=== PATIENT | female | born 1940 | race Caucasian/White ===

== ENCOUNTER → 2017-05-21 | Outpatient (CLI) | payer OTHER ==
--- NOTE | 2017-05-21 14:28 | MAMMOGRAPHY REPORT ---
BILATERAL DIGITAL SCREENING MAMMOGRAM WITH CAD: 05/21/2017 CLINICAL HISTORY: Routine screening. Patient has no complaints. TECHNIQUE: Current study was also evaluated with a Computer Aided Detection (CAD) system. Bilateral CC and MLO views were obtained. COMPARISON: Comparison is made to exams dated: 05/19/2016 mammogram, 05/15/2015 mammogram, 05/12/2014 mammogram, 05/11/2013 mammogram, 05/10/2012 mammogram, and 05/07/2011 mammogram - [facility]. BREAST COMPOSITION: The tissue of both breasts is heterogeneously dense, which may obscure small mas ses. FINDINGS: No suspicious masses, calcifications, or areas of architectural distortion are noted in ei ther breast. There has been no significant interval change compared to prior exams. Scattered bilater al benign-appearing calcifications are not significantly changed. Nodular asymmetry in the right lat eral breast on the cc view is stable dating back to at least the 2007 exam. IMPRESSION: ACR BI-RADS CATEGORY 2: BENIGN There is no mammographic evidence of malignancy. A 1 year screening mammogram is recommended. The pa tient will receive written notification of the results. Approximately 10% of breast cancers are not detected with mammography. A negative mammographic report should not delay biopsy if a clinically suggestive mass is present. Jaelyn Daugherty M.D. /:05/21/2017 12:07:39 Return Checker: Kaylene PUENTE(R)(M), [facility] letter sent: Normal 1/2 BI-RADS Code: ACR BI-RADS Category 2: Benign
== END | disposition home or self-care (01) ==
LOC: C.MAMM 10:39
PROVIDERS: ATTEND Family Medicine
DX: Z12.31 Encounter for screening mammogram for malignant neoplasm of breast (principal)

== ENCOUNTER 2024-10-19 09:50 | Inpatient (IN) ==
--- NOTE | 2024-10-19 12:04 | Pre Anesthesia Assessment ---
Date of Service October 19, 2024 Pre Sedation Assessment Vital Signs Pulse Resp BP Pulse Ox O2 Del Method 10/19/24 10:10 59 L 14 156/77 H 96 Room Air Cardiovascular RRR, no murmur, no edema + bradycardic Respiratory normal respiratory effort, lungs clear to auscultation Pre-Sedation Airway Assessment Smoking Status: Never smoker Hx Sleep Apnea: No Short, Thick Neck: No Thyromental Distance: > or= 3.5 Finger Breadths Oral Cavity: + WNL Mallampati Class: III ASA: ASA3 NPO Status Date of Last Intake of Fluids: 10/18/24 Time of Last Intake of Fluids: 20:00 Date of Last Intake of Solid Food: 10/18/24 Time of Last Intake of Solid Foods: 20:00 Procedure Planning Contraindications for Sedation: none Current Medications Reviewed: Yes Notes The planned sedation has been discussed with the patient. Informed Consent was obtained. I have identified the patient, determined the appropriateness of sedation and have assessed the patient immediately prior to the procedure. All medicine(s) and interventions are by my order.
--- NOTE | 2024-10-19 12:04 | History & Physical Bridge Note ---
Date of Service October 19, 2024 History & Physical Bridge Note I have examined the patient, reviewed the History & Physical and in the interval since the performance of the History & Physical I have noted the following changes of clinical significance: no changes noted
[2024-10-19] MEDS: ceFAZolin 330 MG/ML 1 GM VIAL ONE (13:26)
[2024-10-19] MEDS: WATER, STERILE FOR INJ 10 ML VIAL ONE (13:26)
[2024-10-19] MEDS: LIDOCAINE 1% LOCAL 20 ML VIAL ONE ×2 (13:26→21:08)
[2024-10-19] MEDS: BUPIVACAINE 0.25% PF 30 ML VIAL ONE (13:26)
[2024-10-19] MEDS: VANCOMYCIN HCL 1000MG/20ML VIAL ONE (13:26)
--- NOTE | 2024-10-19 14:09 | Post Anesthesia Assessment ---
Date of Service October 19, 2024 Post Sedation Assessment Vital Signs Pulse Resp BP Pulse Ox O2 Del Method 10/19/24 10:10 59 L 14 156/77 H 96 Room Air Recovery Score Activity: Moves 4 extremities Respiration: Deep Breath/Cough Circulation: +/-20% PreAnes Value Consciousness: Fully Awake Oxygen Saturation: > 92% On Room Air Discharge Sedation Level of Care: Fast Track Phase II Post Sedation Plan On clinical assessment, the patient appears to have tolerated the sedation without complications. Patient is recovering as anticipated. Patient will continue to be monitored by nursing and may be discharged when sedation discharge criteria are met per below protocol. Upon Completions of procedure up to 15 minutes continue every 5 minute vital signs and the P.A.R. score; then discharge to a Phase I or Fast Track to Phase II per the following guidelines: * Discharge Patient to appropriate Phase II area if PAR is 8 or greater or return to pre- procedure baseline. The post - procedure orders will be as directed. * If PAR score is less than 8 or not return to pre-procedure baseline then patient will follow Phase I monitoring till PAR is reached for Phase II. The Phase I may be done in procedure room or may call to secure a Phase I area. * If naloxone or flumazenil are used for reversal, hold in Phase I for continued monitoring from when last reversal dose was given for a minimum of 60 minutes or longer pending the nurse and/or physician discretion of patient condition before discharge to Phase II. Please call the Sedation Physician to re-evaluate and complete post-note for discharge to Phase II area. Do NOT discharge from procedure sedation or Phase 1 until post- sedation evaluation note is complete by procedure /sedation MD Sedation Discharge Instructions to be given to the patient at discharge to home.
--- NOTE | 2024-10-19 14:57 | Operative Report ---
Post Operative Report DATE OF PROCEDURE: 10/19/2024 PREOPERATIVE DIAGNOSES: NICM, LBBB, Chronic heart failure with preserved EF- NYHA Class II POSTOPERATIVE DIAGNOSIS: Same PROCEDURE: A BiV rate responsive implantable cardiac defibrillator along with a peripheral venogram under fluoroscopic guidance. SURGEON: Iveth Montejo DO ASSISTANTS: None. ANESTHESIA: Monitored conscious sedation administered under my supervision by Janel Tariq. Start time 12:47 end time 14:07, a total of 3 mg of Versed and 75 mcg of fentanyl. INTRAVENOUS FLUIDS: 50 mL. CONTRAST: 12 mL. ANTIBIOTICS: 1 grams of Ancef. ADDITIONAL MEDICATIONS: None BLOOD LOSS: 50 mL. URINE OUTPUT: Not applicable. SPECIMENS: None. FINDINGS: See below. DRAINS: None. COMPLICATIONS: None. CONDITION: Stable. INDICATIONS: This is a 84-year-old female who has a past medical history NICM EF 20-24% 07/2022, improved to 40-44% in 10/2022 and 07/2023 but then reduced again in 09/2024 to 20%, LBBB, Chronic heart failure with reduced EF-NYHA Class III, CAD non-obstructive cath 08/2022 (LAD mid 30%, LI CX and RCA), HTN, HLD statin intolerance, CKD stage III, DM, Depression, DDD. Due to her NICM, LBBB and CHF she was recommended a BiV ICD. A formal shared decision making process was performed with Lisa Gamez at the office visit utilizing the IDECIDE ICD evidence based tool from [employer] [place] [employer] Patient Centered Decisions. The discussion that followed was collaborative: detailing the information, risks, and benefits provided by the tool. We also discussed the values and preferences of Lisa Gamez to build a consensus regarding the preferred treatment plan. A decision was reached to proceed with BiV ICD. CONSENT: Consent was obtained prior to the patient going into the electrophysiology lab. The patient was informed of the risks, benefits, and alternatives to the procedure. Risks include, but not limited to, sudden cardiac , cardiac arrhythmias, cerebrovascular accident, myocardial infarction, injury to his blood vessels, chamber of the heart and lung, bleeding and infection. The patient understood these risks and agreed to the procedure as planned. Informed consent was obtained. DESCRIPTION OF PROCEDURE: The patient was brought into electrophysiology lab in a fasting state. She was connected to continuous cardiac monitoring. A timeout was performed to ensure the patient's identity and procedure correctly. She was prepped and draped in the left infraclavicular space in normal surgical standard fashion. Monitored conscious sedation was given throughout the procedure for the patient's comfort level. [place] precautions were maintained throughout the procedure. Prophylactic antibiotics were given prior to incision. A 20 mL of 1% lidocaine and bupivacaine mixture were given in the left deltopectoral groove. An incision was made in the left deltopectoral groove. Blunt dissection was performed down to the pectoralis muscle. Then, using blunt dissection over the pectoralis muscle within the pectoral fascia, a pacemaker pocket was created. Then, a peripheral venogram was performed to identify the axillary vein. Venous axillary access was obtained through a needlestick without any problems. A guidewire was inserted without any resistance. Then a second more medial venous axillary access was obtained without any problems and the guidewire was inserted without any resistance. A 6-Ecuadorean sheath was inserted over the more lateral guidewire without any resistance. Dilator was removed and a second guidewire was inserted through the sheath to allow for retained venous access. Then a 7 Ecuadorean sheath was advanced over one of the more lateral guidewires. The guidewire and dilator were removed. Then the defibrillator lead was advanced through the 7 Ecuadorean sheath into the RV and positioned into the RV apex under fluoroscopic guidance. The screw was extended. There was adequate pacing and sensing. There was no diaphragmatic stimulation with high out put pacing. The 7 Ecuadorean sheath was peeled away and the lead was fixated to the pectoralis muscle using 0 silk suture. Then a 9 Ecuadorean sheath was inserted over the more medial guidewire. The guidewire and dilator were removed. Then, the CPS French Teacher 3D medium curved sheath was inserted through the 9-Ecuadorean sheath over a Glidewire into the right ventricle. The Glidewire and dilator were removed. Then, the left bundle lead was advanced through the sheath and intracardiac electrogram His bundle recordings were estimated when the camera was in FLEMING 10. Once I had an idea where the His bundle was, I then moved the camera to FLEMING 30 and marked where the His bundle was on my fluoroscopy screen. I came down about 2 cm from this in a line that would extend out to the apex and then started coming on pacing. Once I found an area where I had a nice W formed pace complex in my lead V1, I then moved the camera to [place] 30. Then the helix was extended into the septum. Then the helix locking tool was placed. Then the lead was screwed further into the septum while pacing by giving slow clockwise turns. The paced complex changed to a nice R' in V1 and the pacing stim to peak QRS in V6 was good. I did use a stiffer stylet to advance the lead. I then gave contrast through the sheath to see how far the lead was into the septum and then I slit the CPS French Teacher 3D medium curved sheath under fluoroscopic guidance and left the 9-Ecuadorean sheath in while I positioned the right atrial lead. A 6-Ecuadorean sheath was inserted over the retained guidewire in the more lateral access, the guidewire and dilator removed. The right atrial lead was then advanced into right atrium and positioned into right atrial appendage under fluoroscopic guidance. There was adequate pacing and sensing thresholds and no diaphragmatic stimulation with high output pacing. The 6-Ecuadorean sheath was peeled away and the lead was fixated to the pectoralis muscle using 0 silk suture. The 9-Ecuadorean sheath around the left bundle lead was peeled away and the lead was fixated to pectoralis muscle using 0 silk suture. The pocket was flushed with copious amounts of vancomycin and saline wash and inspected for hemostasis. The leads were then attached to the pulse generator making sure the pins were in appropriate position, passed set screws, and set screws were all tightened. Pulse generator was then placed in the pocket, making sure the leads were lying flat beneath the device. The incision was closed in a 3-layer fashion using 2-0 Vicryl interrupted suture, followed by 3-0 Vicryl interrupted suture, followed by 4-0 Monocryl running stitch. Then a primaseal dressing was placed EQUIPMENT: 1. Pulse generator is a Vogel [place] HF SN: [id number] 2. Right atrial lead, Vogel UltiPace LPA 1231 SN: [id number] 3. Defibrillator Lead; Vogel SJM Durata 7122Q SN: [id number] 4. Left bundle lead, Vogel UltiPace LPA 1231 SN: [id number] INTRAPROCEDURAL FINDINGS: 1. Right atrial lead, P waves 2.2 millivolts, impedance 608 ohms, threshold 1.0 volts at 0.5 milliseconds. 2. Defibrillator Lead: R waves 12mV; impedance 500 ohms; threshold 0.5V @ 0.5ms 3. Left bundle lead, impedance 805 ohms, threshold 1.2 volts at 0.5 milliseconds. FINAL MEASUREMENTS THROUGH THE DEVICE: 1. Right atrial lead, P waves 1.8 millivolts, impedance 590 ohms, threshold 0.75 volt at 0.5 milliseconds. 2. Defibrillator Lead: R waves 12 mV; impedance 540 ohms; threshold 0.75V @ 0.5ms 2. Left bundle lead, impedance 780 ohms, threshold 0.75 volts at 0.5 milliseconds. FINAL PARAMETERS: DDD 60/120, right atrial and right ventricular (defibrillator lead) amplitude 3.5 volts, pulse width 0.5 milliseconds, sensitivity 0.3mV. Left bundle lead amplitude 3.5 volts, pulse width 0.5 milliseconds, IMPRESSION: Successful Bi Ventricular rate responsive implantable cardiac defibrillator under fluoroscopic guidance along with peripheral venogram all under fluoroscopic guidance secondary to NICM, LBBB, chronic heart failure with preserved EF, NYHA Class II PLAN: Monitor the patient post-procedure. A 12-lead ECG, chest x-ray. She is not to lift the left elbow or left shoulder for 1 month. She cannot lift more than 10 pounds with the left arm for 2 weeks. She is to keep the dressing on and dry until her wound check next week.
--- NOTE | 2024-10-19 17:00 | XRay Report ---
EXAM: XR chest 1V portable CLINICAL HISTORY: s/p BiV ICD ensure no PTX. TECHNIQUE: An X-ray image of the chest is obtained in AP projection. COMPARISON: No prior studies are available for comparison. FINDINGS: Pulmonary Parenchyma: Left-sided BiV ICD ( biventricular implantable cardioverter-defibrillator) is seen in situ. Increased lucency at left upper lung zone with absent lung markings and partial left lung collapse. Prominent hilar vascular shadows. i No evidence of consolidation, collapse, or focal opacities. No pulmonary nodules are identified. Obscured left costophrenic angle by minimal effusion / projectional. Heart and Mediastinum: No mediastinal widening or masses. No hilar or mediastinal lymphadenopathy. Bony Thorax: Bony thorax appears intact without fractures or deformities. Soft Tissues: Soft tissues overlying the chest wall are unremarkable. IMPRESSION: 1. Left-sided BiV ICD ( biventricular implantable cardioverter-defibrillator) is seen in situ. 2. Left-sided pneumothorax for follow-up and/or CT study. 3. Obscured left costophrenic angle by minimal effusion / projectional. Electronically signed by Dougie Carpenter 10-19-2024 5:00 PM
--- NOTE | 2024-10-19 17:13 | Critical Care Consultation ---
Date of Consultation October 19, 2024 Assessment & Plan (1) Iatrogenic pneumothorax: Tube thoracostomy placed, - 20 cm suction (2) Chronic HFrEF (heart failure with reduced ejection fraction): Asymptomatic at this time (3) LBBB (left bundle branch block): 100% pacemaker dependent at this time (4) HTN (hypertension): Continue home meds (5) CKD (chronic kidney disease) stage 3, GFR 30-59 ml/min: (6) DM type 2 (diabetes mellitus, type 2): Supervising Physician Co-Signing Physician Notes I have personally spent 35 minutes of critical care time in the direct management of this patient. This is a life/limb threatening event. This includes time spent evaluating patient, direct bedside care, chart review, placing orders, interpretation of diagnostic studies, discussion with consultants, patient, and/or family members regarding treatment decisions, as well as other required patient management activities. This time is exclusive of all separately billable procedures, and teaching time and separate from and in addition to any other critical care service time. History of Present Illness Reason for Consultation: Left-sided pneumothorax Attending Physician: Iveth Montejo, History of Present Illness Patient is an 84-year-old female who underwent a biventricular pacemaker placement for left bundle block whose course was complicated by pneumothorax. Patient was asymptomatic during my evaluation. Initial bedside ultrasound demonstrated an apical pneumothorax repeat chest x-ray demonstrated greater than 20% pneumo thorax risks and benefits were discussed with the patient and verbal consent was obtained. Allergies Allergy/AdvReac Type Severity Reaction Status Date / Time carbamazepine [From Tegretol] Allergy Itching Verified 10/19/24 10:56 diphenhydramine Allergy Rash Verified 10/19/24 10:53 [From Benadryl] nabumetone Allergy Rash Verified 10/19/24 10:54 salicylates Allergy Shakiness Verified 10/19/24 10:55 simvastatin Allergy Cramping Verified 10/19/24 10:55 of the Muscles Home Medications Medication Instructions Recorded Confirmed Type amlodipine 5 mg tablet 5 mg PO DAILY 08/19/22 10/19/24 History aspirin 81 mg tablet 81 mg PO DAILY 08/19/22 10/19/24 History carvedilol 6.25 mg tablet 6.25 mg PO BID 08/19/22 10/19/24 History escitalopram oxalate 5 mg tablet 5 mg PO DAILY 08/19/22 10/19/24 History ezetimibe 10 mg tablet 10 mg PO DAILY 08/19/22 10/19/24 History furosemide 20 mg tablet 20 mg PO DAILY 08/19/22 10/19/24 History losartan 100 mg tablet 100 mg PO DAILY 08/19/22 10/19/24 History Cyanacobalamin 10/19/24 History sacubitril 97 mg-valsartan 103 mg 1 tab PO BID 10/19/24 10/19/24 History tablet (Entresto) spironolactone 25 mg tablet 12.5 mg 10/19/24 History (Aldactone) valacyclovir 1 gram tablet 1,000 mg PO BID 10/19/24 10/19/24 History (Valtrex) Patient History Social History Smoking Status: Never smoker Do You Dip or Chew Tobacco: No; Hx Alcohol Use: No Hx Substance Use: No Preferred Language: Croatian Clinical Biochemical Geneticist Required: No Beliefs That Will Affect Care: None Current Living Situation: Spouse Feels Safe at Home: Yes Assistive Devices: None Physical Exam Physical Exam: General: Alert. nontoxic. Skin: Warm, dry, Head: Atraumatic Ears, nose, mouth and throat: airway patent Cardiovascular: Normal peripheral perfusion, paced rhythm Chest: Left pacemaker dressing in place small scant area of shadowing, no crepitus Respiratory: no respiratory distress Gastrointestinal: Non distended Musculoskeletal: No deformity Results & Data Results & Data Vital Signs (Past 12 Hours) Vital Signs Pulse Resp BP Pulse Ox O2 Del Method 10/19/24 16:45 60 14 110/61 95 Room Air 10/19/24 16:30 60 14 140/55 L 95 Room Air 10/19/24 16:15 60 14 140/55 L 95 Room Air 10/19/24 16:00 60 14 107/62 95 Room Air 10/19/24 15:45 60 14 140/68 95 Room Air 10/19/24 15:30 60 14 128/62 95 Room Air 10/19/24 15:14 60 14 126/80 95 Room Air 10/19/24 15:00 60 14 157/86 H 95 Room Air 10/19/24 14:45 63 14 138/89 95 Room Air 10/19/24 14:30 60 14 144/122 H 95 Room Air 10/19/24 14:15 60 14 161/71 H 95 Room Air 10/19/24 10:10 59 L 14 156/77 H 96 Room Air Critical Care Results & Data Vital Signs (Past 12 Hours) Vital Signs Pulse Resp BP Pulse Ox O2 Del Method O2 Flow Rate 10/19/24 19:00 72 14 145/68 H 95 Non-rebreather 11 10/19/24 18:45 68 14 147/71 H 95 Non-rebreather 11 10/19/24 18:30 72 14 150/66 H 95 Non-rebreather 11 10/19/24 18:15 62 14 155/71 H 95 Non-rebreather 11 10/19/24 17:45 60 14 156/77 H 95 Non-rebreather 11 10/19/24 17:30 60 14 159/71 H 95 Non-rebreather 11 10/19/24 17:15 60 14 155/71 H 95 Non-rebreather 11 10/19/24 17:00 60 14 150/83 H 95 Non-rebreather 11 10/19/24 16:45 60 14 110/61 95 Room Air 10/19/24 16:30 60 14 140/55 L 95 Room Air 10/19/24 16:15 60 14 140/55 L 95 Room Air 10/19/24 16:00 60 14 107/62 95 Room Air 10/19/24 15:45 60 14 140/68 95 Room Air 10/19/24 15:30 60 14 128/62 95 Room Air 10/19/24 15:14 60 14 126/80 95 Room Air 10/19/24 15:00 60 14 157/86 H 95 Room Air 10/19/24 14:45 63 14 138/89 95 Room Air 10/19/24 14:30 60 14 144/122 H 95 Room Air 10/19/24 14:15 60 14 161/71 H 95 Room Air 10/19/24 10:10 59 L 14 156/77 H 96 Room Air Lab & Micro Results (Past 24 Hours) No Data to Display No Data to Display No Data to Display Diagnostic Findings (Past 24 Hours) Chest X-Ray 10/19/24 16:00 EXAM: XR chest 1V portable CLINICAL HISTORY: s/p BiV ICD ensure no PTX. TECHNIQUE: An X-ray image of the chest is obtained in AP projection. COMPARISON: No prior studies are available for comparison. FINDINGS: Pulmonary Parenchyma: Left-sided BiV ICD ( biventricular implantable cardioverter-defibrillator) is seen in situ. Increased lucency at left upper lung zone with absent lung markings and partial left lung collapse. Prominent hilar vascular shadows. i No evidence of consolidation, collapse, or focal opacities. No pulmonary nodules are identified. Obscured left costophrenic angle by minimal effusion / projectional. Heart and Mediastinum: No mediastinal widening or masses. No hilar or mediastinal lymphadenopathy. Bony Thorax: Bony thorax appears intact without fractures or deformities. Soft Tissues: Soft tissues overlying the chest wall are unremarkable. IMPRESSION: 1. Left-sided BiV ICD ( biventricular implantable cardioverter-defibrillator) is seen in situ. 2. Left-sided pneumothorax for follow-up and/or CT study. 3. Obscured left costophrenic angle by minimal effusion / projectional. Electronically signed by Dougie Carpenter 10-19-2024 5:00 PM RT Ventilator Mngmt (Last Documented) Ventilator Ordered Settings Respiratory Rate 14 10/19/24 19:00 Ventilator - PT Measurements Respiratory Rate 14 Coding Level of Care Code 30151 CRITICAL CARE 1ST 30-74M Diagnoses Iatrogenic pneumothorax J95.811 Chronic HFrEF (heart failure with reduced ejection fraction) I50.22 LBBB (left bundle branch block) I44.7 HTN (hypertension) I10 CKD (chronic kidney disease) stage 3, GFR 30-59 ml/min N18.30 DM type 2 (diabetes mellitus, type 2) E11.9
--- NOTE | 2024-10-19 18:06 | History & Physical Report ---
Date of Service October 19, 2024 Assessment & Plan (1) LBBB (left bundle branch block): Plan: -now s/p pacemaker placement -course complicated by iatrogenic pneumothorax -procedure performed due to drop in EF in setting of LBBB Plan: -post op recs per EP/cardiology, appreciate recs -continuous telemetry -monitor site for infection, bleeding -chest xray in AM -hold aspirin tonight (2) Iatrogenic pneumothorax: Plan: -biventricular pacemaker placement complicated by pneumothorax Plan: -appreciate critical care assistance -likely chest tube placement -start incentive spirometry (3) Chronic HFrEF (heart failure with reduced ejection fraction): Plan: -EF of 20% in 2024 -hope is that treating LBBB with biventricular pacing will improve EF Plan: -continue home coreg, entresto -would benefit from SGLT2, start before discharge -hold aldactone for now -continue zetia, hold aspirin for now given post op setting (4) DM type 2 (diabetes mellitus, type 2): Plan: -monitor without insulin at this time given not on insulin at home (5) CKD (chronic kidney disease) stage 3, GFR 30-59 ml/min: Plan: -trend creatinine daily (6) HTN (hypertension): Plan: -see above Plan I spent a total of 80 minutes in direct patient care, including [id number] time with the patient and/or family, reviewing medical records, ordering and reviewing diagnostic tests, and coordinating care with other healthcare providers. This time includes: history taking, physical examination, medical decision making, counseling, ECG interpretation, imaging interpretation, lab interpretation, orders, and education, excluding time spent in the performance of separately billed services. History of Present Illness Chief Complaint: -post pacemaker Primary Care Provider: Alicia Abraham MD 84 yo female with pmhx of HFrEF (EF20% 2022--->40% 2023--->20% 2024) c/b LBBB, CAD (nonobstructive, LAD 30%, 2022), HTn, HLD, CKD Stage III, DM Type 2, and depression who presented for biventricular pacemaker placement for LBBB, course complicated by pneumothorax during course of placement. Discussed case with Dr. Montejo, patient will be admitted to ICU for monitoring and potential chest tube placement for pneumothorax. Patient seen and examined at bedside. Daughter present as well. Patient feeling well today post chest tube placement on left side. States she is not having any pain and generally feels she is improving. Denies any chest pain, bleeding, nausea or vomiting at this time. Full code at this time. Allergies Allergy/AdvReac Type Severity Reaction Status Date / Time carbamazepine [From Tegretol] Allergy Itching Verified 10/19/24 10:56 diphenhydramine Allergy Rash Verified 10/19/24 10:53 [From Benadryl] nabumetone Allergy Rash Verified 10/19/24 10:54 salicylates Allergy Shakiness Verified 10/19/24 10:55 simvastatin Allergy Cramping Verified 10/19/24 10:55 of the Muscles Home Medications Medication Instructions Recorded Confirmed Type amlodipine 5 mg tablet 5 mg PO DAILY 08/19/22 10/19/24 History aspirin 81 mg tablet 81 mg PO DAILY 08/19/22 10/19/24 History carvedilol 6.25 mg tablet 6.25 mg PO BID 08/19/22 10/19/24 History escitalopram oxalate 5 mg tablet 5 mg PO DAILY 08/19/22 10/19/24 History ezetimibe 10 mg tablet 10 mg PO DAILY 08/19/22 10/19/24 History furosemide 20 mg tablet 20 mg PO DAILY 08/19/22 10/19/24 History losartan 100 mg tablet 100 mg PO DAILY 08/19/22 10/19/24 History Cyanacobalamin 10/19/24 History sacubitril 97 mg-valsartan 103 mg 1 tab PO BID 10/19/24 10/19/24 History tablet (Entresto) spironolactone 25 mg tablet 12.5 mg 10/19/24 History (Aldactone) valacyclovir 1 gram tablet 1,000 mg PO BID 10/19/24 10/19/24 History (Valtrex) Past Med/Surg History Problem List DM type 2 (diabetes mellitus, type 2) CKD (chronic kidney disease) stage 3, GFR 30-59 ml/min HTN (hypertension) LBBB (left bundle branch block) Chronic HFrEF (heart failure with reduced ejection fraction) Iatrogenic pneumothorax Social History Smoking Status: Never smoker Do You Dip or Chew Tobacco: No; Hx Alcohol Use: Yes Alcohol type: wine Hx Substance Use: No Preferred Language: Hebrew Communication Ability: Effective [employer] P[employer] Required: No Beliefs That Will Affect Care: None Current Living Situation: Spouse Other Information That Helps Us Care for You: No Feels Safe at Home: Yes Safety Concerns: Feels Safe At This Time Assistive Devices: None Review of Systems Review of Systems: CONSTITUTIONAL: Patient denies fevers, chills, sweats and weight changes. EYES: Patient denies any visual symptoms. EARS, NOSE, AND THROAT: No difficulties with hearing. No symptoms of rhinitis or sore throat. CARDIOVASCULAR: Patient denies chest pains, palpitations, orthopnea and paroxysmal nocturnal dyspnea. RESPIRATORY: SOB GI: No nausea, vomiting, diarrhea, constipation, abdominal pain, hematochezia or melena. : No urinary hesitancy or dribbling. No nocturia or urinary frequency. No abnormal urethral discharge. MUSCULOSKELETAL: No myalgias or arthralgias. NEUROLOGIC: No chronic headaches, no seizures. Patient denies numbness, tingling or weakness. PSYCHIATRIC: Patient denies problems with mood disturbance. No problems with anxiety. ENDOCRINE: No excessive urination or excessive thirst. DERMATOLOGIC: Patient denies any rashes or skin changes. Physical Exam Physical Exam: Gen: A&O 3 NAD HEENT: NCAT, EOMI, not icteric. External ears normal. No rhinorrhea. Moist mucous membranes. Neck: Supple, full range of motion, no observable masses, No meningeal sign. Lungs: No Respiratory distress. CV: RRR, no edema. Abdomen: Soft, nondistended, No rebound tenderness. MSK: No joint swelling, no redness, trace nonpitting edema in legs bilaterally Skin: No rashes, petechiae, lesions. Normal color per patient. Neuro: Normal Gait, Grossly intact. Psych: Appropriate for situation. Results & Data Results & Data Vital Signs (Past 12 Hours) Vital Signs Pulse Resp BP Pulse Ox O2 Del Method 10/19/24 16:45 60 14 110/61 95 Room Air 10/19/24 16:30 60 14 140/55 L 95 Room Air 10/19/24 16:15 60 14 140/55 L 95 Room Air 10/19/24 16:00 60 14 107/62 95 Room Air 10/19/24 15:45 60 14 140/68 95 Room Air 10/19/24 15:30 60 14 128/62 95 Room Air 10/19/24 15:14 60 14 126/80 95 Room Air 10/19/24 15:00 60 14 157/86 H 95 Room Air 10/19/24 14:45 63 14 138/89 95 Room Air 10/19/24 14:30 60 14 144/122 H 95 Room Air 10/19/24 14:15 60 14 161/71 H 95 Room Air 10/19/24 10:10 59 L 14 156/77 H 96 Room Air Laboratory Results -personally reviewed, Hgb and WBC unremarkable Diagnostic Findings Chest X-Ray 10/19/24 16:00 EXAM: XR chest 1V portable CLINICAL HISTORY: s/p BiV ICD ensure no PTX. TECHNIQUE: An X-ray image of the chest is obtained in AP projection. COMPARISON: No prior studies are available for comparison. FINDINGS: Pulmonary Parenchyma: Left-sided BiV ICD ( biventricular implantable cardioverter-defibrillator) is seen in situ. Increased lucency at left upper lung zone with absent lung markings and partial left lung collapse. Prominent hilar vascular shadows. i No evidence of consolidation, collapse, or focal opacities. No pulmonary nodules are identified. Obscured left costophrenic angle by minimal effusion / projectional. Heart and Mediastinum: No mediastinal widening or masses. No hilar or mediastinal lymphadenopathy. Bony Thorax: Bony thorax appears intact without fractures or deformities. Soft Tissues: Soft tissues overlying the chest wall are unremarkable. IMPRESSION: 1. Left-sided BiV ICD ( biventricular implantable cardioverter-defibrillator) is seen in situ. 2. Left-sided pneumothorax for follow-up and/or CT study. 3. Obscured left costophrenic angle by minimal effusion / projectional. Electronically signed by Dougie Carpenter 10-19-2024 5:00 PM Chest X-Ray 10/19/24 19:25 EXAM: Portable AP chest radiograph TECHNIQUE: AP portable radiograph of the chest was obtained. INDICATION: Pneumothorax follow-up. Comparison: Chest radiograph from earlier the same day at 15:59. FINDINGS: LINES and TUBES: Redemonstrate left-sided cardiac ICD with leads projecting over the right atrium, the right ventricle and the coronary sinus of the heart. CARDIOVASCULAR: Cardiac silhouette is stably and mildly enlarged in size. Atherosclerosis of the thoracic aorta. LUNGS/PLEURA: No focal consolidation identified. No significant pleural fluid. No significant change in the appearance of the moderate-sized left pneumothorax. IMPRESSION: No significant change and no significant interval change in the appearance of the moderate-sized left pneumothorax. Electronically signed by Romaine Augustine 10-19-2024 8:30 PM -personally reviewed, left sided pneumothorax noted
[2024-10-19] MEDS ORDERED: POLYETHYLENE (MIRALAX) 17 GM PACK PO PRN (19:38)
[2024-10-19] MEDS ORDERED: ACETAMINOPHEN 325 MG TAB PO PRN (19:38)
[2024-10-19] MEDS: HYDROmorphone INJ 0.5 MG/0.5 ML SYR IV STA (19:45)
[2024-10-19] MEDS: LIDOCAINE 2% LOCAL 50 ML VIAL ONE (19:50)
--- NOTE | 2024-10-19 20:11 | Procedure Note ---
Procedure Note Date of Service October 19, 2024 Procedure Date: noted above Procedure: Tube thoracostomy Pre-procedure Diagnosis: Left pneumothorax Post-procedure Diagnosis: same as above: Empyema Prior to Procedure: Informed Consent: The risks, benefits, indications, potential complications, and alternatives were explained to the patient and verbal informed consent obtained. Attending Staff: Tae Beal DO Resident/Physician Turnstile Collector: Дмитрий Indications: Patient is an 84-year-old female postop day 0 from a pacemaker placement who was found to have a greater than 30% pneumothorax The identity of the patient was confirmed and a bedside time out was performed. Description of Procedure: Patient positioned, the left mid axillary line was prepped with chlorhexidine and draped in usual sterile fashion. 5 mL of 1% Lidocaine without epinephrine was used to anesthetize the area. With care to enter superior to the rib margin an 18-gauge needle was entered into the pleural space and air return was noted. A guidewire was inserted, and the needle removed. A stab incision was made, al dilator was used to enlarge the tract via Seldinger technique. A 20 Uzbek chest tube was inserted transversely into the chest at approximately 15 cm to the chest wall and secured with 3-0 silk suture. This was connected to a Pleur- evac, bubbling was noted in the chamber and eventually stopped and then with patient coughing there was still additional bubbling. Complications: None Estimated blood loss: Trace Post procedure chest x-ray has been ordered and has been reviewed. Improvement in the pneumothorax. [facility] Procedure Codes (Charges) Pulmonary/Thoracic Procedure 1: Pulmonary and Thoracic: 30587 Tube thoracostomy (left sided procedure) Coding CPT Codes Pulmonary/Thoracic - Pulmonary and Thoracic: 74999 Tube thoracostomy ([id number]) Additional Codes Date of Service (PG.SURGERY)
--- NOTE | 2024-10-19 20:30 | XRay Report ---
EXAM: Portable AP chest radiograph TECHNIQUE: AP portable radiograph of the chest was obtained. INDICATION: Pneumothorax follow-up. Comparison: Chest radiograph from earlier the same day at 15:59. FINDINGS: LINES and TUBES: Redemonstrate left-sided cardiac ICD with leads projecting over the right atrium, the right ventricle and the coronary sinus of the heart. CARDIOVASCULAR: Cardiac silhouette is stably and mildly enlarged in size. Atherosclerosis of the thoracic aorta. LUNGS/PLEURA: No focal consolidation identified. No significant pleural fluid. No significant change in the appearance of the moderate-sized left pneumothorax. IMPRESSION: No significant change and no significant interval change in the appearance of the moderate-sized left pneumothorax. Electronically signed by Romaine Augustine 10-19-2024 8:30 PM
[2024-10-19 20:41] LABS: Basophils # (auto) 0.05 K/uL (0.00-0.20); Basophils % (auto) 0.5 %; Eosinophils # (auto) 0.07 K/uL (0.00-0.50); Eosinophils % (auto) 0.7 %; Hematocrit (blood only) 43.5 % (37.0-47.0); Hemoglobin 13.9 g/dl (12.0-16.0); Immature Granulocytes # (auto) 0.04 K/uL (0.01-0.20); Immature Granulocytes % (auto) 0.4 %; Lymphocytes % (auto) 10.6 %; Mean Corpuscular Hemoglobin 29.6 pg (25.0-34.0); Mean Corpuscular Volume 92.6 fL (80.0-100.0); Mean Platelet Volume 10.2 fL (9.4-12.4); Monocytes # (auto) 0.59 K/uL (0.11-0.59); Monocytes % (auto) 6.3 %; Neutrophils # (auto) 7.68 K/uL (1.40-6.50); Neutrophils % (auto) 81.5 %; Platelet Count 177 K/uL (130-400); RDW Coefficient of Variation 13.2 % (11.5-14.5); RDW Standard Deviation 45.2 fL (36.4-46.3); White Blood Count 9.43 K/ul (4.8-10.8)
[2024-10-19 20:57] LABS: Albumin Globulin Ratio 1.4 (0.9-2); BUN Creatinine Ratio 21.3 (10-20); Bilirubin,Total 0.7 mg/dl (0.2-1.0); Calcium 9.2 mg/dl (8.6-10.3); Creatinine Clr Calc Pharmacy 37.3 ml/min; Globulin 2.9 gm/dl (2.5-4.0); Magnesium 1.6 mg/dl (1.7-2.4); Phosphorus 3.5 mg/dl (2.5-4.9); Potassium 4.6 mmol/L (3.5-5.1); Total Protein 6.9 gm/dl (6.0-8.3)
[2024-10-19] MEDS: fentaNYL citrate PF 100 MCG/2 ML VIAL ONE (21:03)
[2024-10-19] MEDS: HYDROmorphone INJ 0.5 MG/0.5 ML SYR ONE (21:04)
[2024-10-19] MEDS: MIDAZOLAM HCL 5 MG/ML 1 ML VIAL ONE (21:04)
[2024-10-19 21:07] LABS: Prothrombin Time 11.1 Seconds (9.0-12.0)
[2024-10-19] MEDS: ICU Protocol for HYPERglycemia SCH (21:36)
[2024-10-19] MEDS: carvediloL 6.25 MG TAB PO SCH (21:36)
[2024-10-19] MEDS: MAGNESIUM SULFATE / D5W 1 GM/100 ML BAG IV SCH (21:36)
--- NOTE | 2024-10-20 00:18 | XRay Report ---
Exam(s): XR CXR 1 VIEW EXAM: XR Chest, 1 View CLINICAL HISTORY: Reason for exam: s/p pigtalil placement on left side. TECHNIQUE: Frontal view of the chest. COMPARISON: Prior chest x-ray from October 19, 2024 at 7:22 PM. FINDINGS: There is an AICD in the left chest wall with distal leads in the right atrium and right ventricle. There is a pigtail catheter in the left chest wall that the distal tip obscured by the AICD. Lungs: Unremarkable. No consolidation. Pleural space: There is blunting of the left costophrenic angle concerning for a tiny pleural effusion. No pneumothorax. Heart: Unremarkable. No cardiomegaly. Mediastinum: Unremarkable. Normal mediastinal contour. Bones/joints: Unremarkable. No acute fracture. IMPRESSION: There is a left pigtail chest tube with the distal tip obscured by the AICD. No definite evidence of residual pneumothorax. Electronically signed by: Lali Lamb MD 10/20/24 00:16 AM
[2024-10-20 04:49] LABS: Hematocrit (blood only) 41.3 % (37.0-47.0); Hemoglobin 13.5 g/dl (12.0-16.0); Mean Corpuscular Hemoglobin 30.1 pg (25.0-34.0); Mean Corpuscular Hgb Conc 32.7 g/dL (32.0-36.0); Mean Corpuscular Volume 92.2 fL (80.0-100.0); Platelet Count 143 K/uL (130-400); RDW Coefficient of Variation 13.2 % (11.5-14.5); Red Blood Count 4.48 M/uL (4.20-5.40); White Blood Count 7.84 K/ul (4.8-10.8)
[2024-10-20 05:04] LABS: BUN Creatinine Ratio 23.7 (10-20); Creatinine Clr Calc Pharmacy 35.4 ml/min; Magnesium 2.3 mg/dl (1.7-2.4); Potassium 4.8 mmol/L (3.5-5.1)
--- NOTE | 2024-10-20 08:18 | XRay Report ---
EXAM: XR chest 1V portable CLINICAL HISTORY: CT placed to water seal at 0400- evaluate pneumothorax. TECHNIQUE: An X-ray image of the chest is obtained in AP portable projection. COMPARISON: 10/19/2024 18:37:00 DEBEAKER. FINDINGS: Pulmonary Parenchyma: Left-sided chest tube with tip seen peripherally at mid lung zone (Partially obscured by ICD device) (new finding). Interval improvement of left-sided pneumothorax, still seen apical pneumothorax, and lung re-expansion. Prominent hilar vascular shadows. No evidence of consolidation, collapse, or focal opacities. No pulmonary nodules are identified. Obscured left costophrenic angle by minimal effusion / projectional. Heart and Mediastinum: Heart size and shape are normal. No mediastinal widening or masses. No hilar or mediastinal lymphadenopathy. A left-sided cardiac pacemaker is seen in situ. Bony Thorax: Bony thorax appears intact without fractures or deformities. Soft Tissues: Soft tissues overlying the chest wall are unremarkable. IMPRESSION: 1. Interval improvement of left-sided pneumothorax, still seen mild apical pneumothorax, and lung re-expansion. 2. Left-sided chest tube with tip seen peripherally at mid lung zone (Partially obscured by ICD device) (new finding). 3. Unchanged obscured left costophrenic angle possibly by minimal effusion / projectional. 4. No new consolidated or collapsed patches. Electronically signed by Dougie Carpenter 10-20-2024 08:17 AM
[2024-10-20] MEDS: ESCITALOPRAM OXALATE 10 MG TAB PO SCH (08:36)
[2024-10-20] MEDS: EZETIMIBE 10 MG TAB PO SCH (08:37)
[2024-10-20] MEDS: VALSARTAN/SACUBITRIL 103/97MG TAB PO SCH (08:37)
--- NOTE | 2024-10-20 11:39 | Hospitalist Progress Note ---
Date of Service October 20, 2024 Assessment & Plan (1) Iatrogenic pneumothorax: (2) Chronic HFrEF (heart failure with reduced ejection fraction): (3) LBBB (left bundle branch block): (4) Status post implantation of automatic cardioverter/defibrillator (AICD): (5) CKD (chronic kidney disease) stage 3, GFR 30-59 ml/min: (6) DM type 2 (diabetes mellitus, type 2): (7) HTN (hypertension): Plan Patient 84-year-old female admitted with pneumothorax status post AICD placement yesterday. Chest tube in place, small residual pneumothorax on this morning's chest x-ray, chest tube placed back to suction Continue to monitor checks x-ray, chest tube management per pulmonary Pacemaker site looks clean, continue with usual post pacemaker care Continue to monitor glucose And managed with, diet controlled Continue other goal-directed medications for her reduced ejection fraction Admission and Anticipated Discharge Date Admission Date: October 19, 2024 Subjective Patient states that she was able to get some rest. No real significant chest pain. No shortness of breath. Physical Exam Physical Exam: Constitutional: Alert, no acute distress HEENT: Mucous membranes moist. Lungs: Decreased breath sounds, no wheezes CV: S1-S2, regular, systolic murmur Abdomen: Soft, nontender, nondistended Extremities: No significant edema Neuro: No focal deficits Psych: Cooperative, normal mood Results & Data Results & Data Vital Signs (Past 12 Hours) Vital Signs Temp Pulse Pulse Resp BP BP Pulse Ox 10/20/24 08:09 72 21 100 10/20/24 08:06 148/80 H 10/20/24 08:06 148/80 H 10/20/24 08:06 148/80 H 10/20/24 08:06 148/80 H 10/20/24 08:00 10/20/24 08:00 36.9 C 10/20/24 07:45 72 20 97 10/20/24 07:33 77 22 98 10/20/24 07:09 65 18 100 10/20/24 07:01 113/82 10/20/24 07:01 11310/20/24 07:01 10/20/24 06:00 67 20 129/69 100 10/20/24 05:00 62 15 137/57 L 100 10/20/24 04:00 36.4 C L 62 15 116/59 L 100 10/20/24 03:33 60 14 100 10/20/24 03:00 61 16 121/52 L 100 10/20/24 02:00 60 19 129/55 L 100 10/20/24 01:00 60 15 98/77 L 100 10/20/24 00:30 60 15 100 10/20/24 00:11 10/20/24 00:00 36.5 C 60 16 112/56 L 100 10/19/24 23:39 72 19 100 O2 Del Method O2 Flow Rate FiO2 10/20/24 08:09 10/20/24 08:06 10/20/24 08:06 10/20/24 08:06 10/20/24 08:06 10/20/24 08:00 Non-rebreather 15 10/20/24 08:00 10/20/24 07:45 10/20/24 07:33 10/20/24 07:09 10/20/24 07:01 10/20/24 07:01 10/20/24 07:01 10/20/24 06:00 Non-rebreather 15 10/20/24 05:00 Non-rebreather 15 10/20/24 04:00 Non-rebreather 15 10/20/24 03:33 Non-rebreather 15 10/20/24 03:00 Non-rebreather 15 10/20/24 02:00 Non-rebreather 15 100 10/20/24 01:00 Non-rebreather 15 10/20/24 00:30 Non-rebreather 15 10/20/24 00:11 Non-rebreather 15 10/20/24 00:00 Non-rebreather 15 10/19/24 23:39 Non-rebreather 15 100 Diagnostic Findings Reviewed imaging, laboratory and diagnostic studies. Pertinent findings as below. Personally reviewed chest x-ray from this morning, small residual pneumothorax at the apex on the left. Laboratory studies stable
--- NOTE | 2024-10-20 12:08 | Critical Care Progress Note ---
Date of Service October 20, 2024 Assessment & Plan (1) Iatrogenic pneumothorax: Plan: After placement on waterseal interval increase in apical pneumothorax - Continue -20 cmH2O suction - Will reimage at 6 PM and if negative placed back on bowen eal with anticipating reimaging 1 hour later Patient stable for downgrade out of ICU and critical care will continue to follow chest tube Admission and Anticipated Discharge Date Admission Date: October 19, 2024 Subjective No overnight events. Was placed on waterseal approximately 4 5 this morning, repeat chest x-ray demonstrates interval worsening of apical pneumothorax and was subsequently placed back on suction. Patient is asymptomatic otherwise Physical Exam Physical Exam: General: Alert. nontoxic. Skin: Warm, dry, Head: Atraumatic Ears, nose, mouth and throat: airway patent Cardiovascular: Normal peripheral perfusion Respiratory: no respiratory distress Gastrointestinal: Non distended Musculoskeletal: No deformity Results & Data Results & Data Vital Signs (Past 12 Hours) Vital Signs Temp Pulse Pulse Resp BP BP Pulse Ox 10/20/24 08:09 72 21 100 10/20/24 08:06 148/80 H 10/20/24 08:06 148/80 H 10/20/24 08:06 148/80 H 10/20/24 08:06 148/80 H 10/20/24 08:00 10/20/24 08:00 36.9 C 10/20/24 07:45 72 20 97 10/20/24 07:33 77 22 98 10/20/24 07:09 65 18 100 10/20/24 07:01 113/82 10/20/24 07:01 113/82 10/20/24 07:01 113/82 10/20/24 06:00 67 20 129/69 100 10/20/24 05:00 62 15 137/57 L 100 10/20/24 04:00 36.4 C L 62 15 116/59 L 100 10/20/24 03:33 60 14 100 10/20/24 03:00 61 16 121/52 L 100 10/20/24 02:00 60 19 129/55 L 100 10/20/24 01:00 60 15 98/77 L 100 10/20/24 00:30 60 15 100 10/20/24 00:11 O2 Del Method O2 Flow Rate FiO2 10/20/24 08:09 10/20/24 08:06 10/20/24 08:06 10/20/24 08:06 10/20/24 08:06 10/20/24 08:00 Non-rebreather 15 10/20/24 08:00 10/20/24 07:45 10/20/24 07:33 10/20/24 07:09 10/20/24 07:01 10/20/24 07:01 10/20/24 07:01 10/20/24 06:00 Non-rebreather 15 100 10/20/24 05:00 Non-rebreather 15 100 10/20/24 04:00 Non-rebreather 15 100 10/20/24 03:33 Non-rebreather 15 100 10/20/24 03:00 Non-rebreather 15 100 10/20/24 02:00 Non-rebreather 15 100 10/20/24 01:00 Non-rebreather 15 100 10/20/24 00:30 Non-rebreather 15 100 10/20/24 00:11 Non-rebreather 15 100 Critical Care Results & Data Vital Signs (Past 12 Hours) Vital Signs Temp Pulse Pulse Resp BP BP Pulse Ox 10/20/24 08:09 72 21 100 10/20/24 08:06 148/80 H 10/20/24 08:06 148/80 H 10/20/24 08:06 148/80 H 10/20/24 08:06 148/80 H 10/20/24 08:00 10/20/24 08:00 36.9 C 10/20/24 07:45 72 20 97 10/20/24 07:33 77 22 98 10/20/24 07:09 65 18 100 10/20/24 07:01 113/82 10/20/24 07:01 113/82 10/20/24 07:01 113/82 10/20/24 06:00 67 20 129/69 100 10/20/24 05:00 62 15 137/57 L 100 10/20/24 04:00 36.4 C L 62 15 116/59 L 100 10/20/24 03:33 60 14 100 10/20/24 03:00 61 16 121/52 L 100 10/20/24 02:00 60 19 129/55 L 100 10/20/24 01:00 60 15 98/77 L 100 10/20/24 00:30 60 15 100 10/20/24 00:11 O2 Del Method O2 Flow Rate FiO2 10/20/24 08:09 10/20/24 08:06 10/20/24 08:06 10/20/24 08:06 10/20/24 08:06 10/20/24 08:00 Non-rebreather 15 10/20/24 08:00 10/20/24 07:45 10/20/24 07:33 10/20/24 07:09 10/20/24 07:01 10/20/24 07:01 10/20/24 07:01 10/20/24 06:00 Non-rebreather 15 10/20/24 05:00 Non-rebreather 15 10/20/24 04:00 Non-rebreather 15 10/20/24 03:33 Non-rebreather 15 10/20/24 03:00 Non-rebreather 15 10/20/24 02:00 Non-rebreather 15 10/20/24 01:00 Non-rebreather 15 10/20/24 00:30 Non-rebreather 15 10/20/24 00:11 Non-rebreather 15 100 Lab & Micro Results (Past 24 Hours) RBC 4.48 M/uL (4.20-5.40) 10/20/24 WBC 7.84 K/ul (4.8-10.8) 10/20/24 Hgb 13.5 g/dl (12.0-16.0) 10/20/24 Hct 41.3 % (37.0-47.0) 10/20/24 MCV 92.2 fL (80.0-100.0) 10/20/24 MCH 30.1 pg (25.0-34.0) 10/20/24 MCHC 32.7 g/dL (32.0-36.0) 10/20/24 RDW Standard Deviation 45.0 fL (36.4-46.3) 10/20/24 RDW Coefficient of Variation 13.2 % (11.5-14.5) 10/20/24 Plt Count 143 K/uL (130-400) 10/20/24 MPV 10.0 fL (9.4-12.4) 10/20/24 Neutrophils (%) (Auto) 81.5 % 10/19/24 Lymphocytes (%) (Auto) 10.6 % 10/19/24 Monocytes # (Auto) 0.59 K/uL (0.11-0.59) 10/19/24 Eosinophils # (Auto) 0.07 K/uL (0.00-0.50) 10/19/24 Immature Granulocyte % (Auto) 0.4 % 10/19/24 Neutrophils # (Auto) 7.68 K/uL (1.40-6.50) H 10/19/24 Lymphocytes # (Auto) 1.00 K/uL (1.20-3.40) L 10/19/24 Monocytes # (Auto) 0.59 K/uL (0.11-0.59) 10/19/24 Eosinophils # (Auto) 0.07 K/uL (0.00-0.50) 10/19/24 Basophils # (Auto) 0.05 K/uL (0.00-0.20) 10/19/24 Immature Granulocyte # (Auto) 0.04 K/uL (0.01-0.20) 5 Na 134 mmol/L (136-145) L 10/20/24 K 4.8 mmol/L (3.5-5.1) 10/20/24 Cl 102 mmol/L (98-107) 10/20/24 CO2 26 mmol/L (21-32) 10/20/24 Anion Gap 6 (3-11) 10/20/24 BUN 27 mg/dl (6-23) H 10/20/24 Creatinine 1.14 mg/dl (0.6-1.2) 10/20/24 BUN/Creatinine Ratio 23.7 (10-20) H 10/20/24 Glu 108 mg/dl (70-99(Fasting)) H 10/20/24 Ca 9.0 mg/dl (8.6-10.3) 10/20/24 Phosphorus Level 3.5 mg/dl (2.5-4.9) 10/19/24 Total Bilirubin 0.7 mg/dl (0.2-1.0) 10/19/24 AST 23 U/L (13-39) 10/19/24 ALT 16 U/L (7-52) 10/19/24 Alkaline Phosphatase 67 U/L (34-104) 10/19/24 TP 6.9 gm/dl (6.0-8.3) 10/19/24 Albumin 4.0 gm/dl (3.4-5.0) 10/19/24 Globulin 2.9 gm/dl (2.5-4.0) 10/19/24 Albumin/Globulin Ratio 1.4 (0.9-2) 10/19/24 Mg 2.3 mg/dl (1.7-2.4) 10/20/24 04:37 Calcium Level 9.0 mg/dl (8.6-10.3) 10/20/24 04:37 Prothromb Time International Ratio 1.0 (0.9-1.1) 10/19/24 20:3 2 Diagnostic Findings (Past 24 Hours) Chest X-Ray 10/19/24 16:00 EXAM: XR chest 1V portable CLINICAL HISTORY: s/p BiV ICD ensure no PTX. TECHNIQUE: An X-ray image of the chest is obtained in AP projection. COMPARISON: No prior studies are available for comparison. FINDINGS: Pulmonary Parenchyma: Left-sided BiV ICD ( biventricular implantable cardioverter-defibrillator) is seen in situ. Increased lucency at left upper lung zone with absent lung markings and partial left lung collapse. Prominent hilar vascular shadows. i No evidence of consolidation, collapse, or focal opacities. No pulmonary nodules are identified. Obscured left costophrenic angle by minimal effusion / projectional. Heart and Mediastinum: No mediastinal widening or masses. No hilar or mediastinal lymphadenopathy. Bony Thorax: Bony thorax appears intact without fractures or deformities. Soft Tissues: Soft tissues overlying the chest wall are unremarkable. IMPRESSION: 1. Left-sided BiV ICD ( biventricular implantable cardioverter-defibrillator) is seen in situ. 2. Left-sided pneumothorax for follow-up and/or CT study. 3. Obscured left costophrenic angle by minimal effusion / projectional. Electronically signed by Dougie Carpenter 10-19-2024 5:00 PM Chest X-Ray 10/19/24 19:25 EXAM: Portable AP chest radiograph TECHNIQUE: AP portable radiograph of the chest was obtained. INDICATION: Pneumothorax follow-up. Comparison: Chest radiograph from earlier the same day at 15:59. FINDINGS: LINES and TUBES: Redemonstrate left-sided cardiac ICD with leads projecting over the right atrium, the right ventricle and the coronary sinus of the heart. CARDIOVASCULAR: Cardiac silhouette is stably and mildly enlarged in size. Atherosclerosis of the thoracic aorta. LUNGS/PLEURA: No focal consolidation identified. No significant pleural fluid. No significant change in the appearance of the moderate-sized left pneumothorax. IMPRESSION: No significant change and no significant interval change in the appearance of the moderate-sized left pneumothorax. Electronically signed by Romaine Augustine 10-19-2024 8:30 PM Chest X-Ray 10/19/24 20:05 Exam(s): XR CXR 1 VIEW EXAM: XR Chest, 1 View CLINICAL HISTORY: Reason for exam: s/p pigtalil placement on left side. TECHNIQUE: Frontal view of the chest. COMPARISON: Prior chest x-ray from October 19, 2024 at 7:22 PM. FINDINGS: There is an AICD in the left chest wall with distal leads in the right atrium and right ventricle. There is a pigtail catheter in the left chest wall that the distal tip obscured by the AICD. Lungs: Unremarkable. No consolidation. Pleural space: There is blunting of the left costophrenic angle concerning for a tiny pleural effusion. No pneumothorax. Heart: Unremarkable. No cardiomegaly. Mediastinum: Unremarkable. Normal mediastinal contour. Bones/joints: Unremarkable. No acute fracture. IMPRESSION: There is a left pigtail chest tube with the distal tip obscured by the AICD. No definite evidence of residual pneumothorax. Electronically signed by: Lali Lamb MD 10/20/24 00:16 AM Chest X-Ray 10/20/24 06:00 EXAM: XR chest 1V portable CLINICAL HISTORY: CT placed to water seal at 0400- evaluate pneumothorax. TECHNIQUE: An X-ray image of the chest is obtained in AP portable projection. 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 Interval improvement of left-sided pneumothorax, still seen apical pneumothorax, and lung re-expansion. Prominent hilar vascular shadows. No evidence of consolidation, collapse, or focal opacities. No pulmonary nodules are identified. Obscured left costophrenic angle by minimal effusion / projectional. Heart and Mediastinum: Heart size and shape are normal. No mediastinal widening or masses. No hilar or mediastinal lymphadenopathy. A left-sided cardiac pacemaker is seen in situ. Bony Thorax: Bony thorax appears intact without fractures or deformities. Soft Tissues: Soft tissues overlying the chest wall are unremarkable. IMPRESSION: 1. Interval improvement of left-sided pneumothorax, still seen mild apical pneumothorax, and lung re-expansion. 2. Left-sided chest tube with tip seen peripherally at mid lung zone (Partially obscured by ICD device) (new finding). 3. Unchanged obscured left costophrenic angle possibly by minimal effusion / projectional. 4. No new consolidated or collapsed patches. Electronically signed by Dougie Carpenter 10-20-2024 08:17 AM I & O Totals 24 Hours 10/19/24 10/20/24 10/21/24 06:59 06:59 06:59 Intake Total 242.5 / 242.5 200 / 200 Output Total 550 / 550 Balance -307.5 / -307.5 200 / 200 Cumulative 10/10/24 11:02 thru 10/20/24 08:00 Intake Total 442.5 Output Total 550 Balance -107.5 RT Ventilator Mngmt (Last Documented) Ventilator Ordered Settings Respiratory Rate 21 10/20/24 08:09 Fraction of Inspired Oxygen 100 10/20/24 06:00 Ventilator - PT Measurements Respiratory Rate 21 Coding Level of Care Code 13452 SUB INP/OBS CARE 2/35MIN Diagnoses Iatrogenic pneumothorax J95.811
--- NOTE | 2024-10-20 17:14 | Electrocardiogram Report ---
Test Reason : Blood Pressure : */* mmHG Vent. Rate : 60 BPM Atrial Rate : 60 BPM P-R Int : 176 ms QRS Dur : 132 ms QT Int : 482 ms P-R-T Axes : * 16 -78 degrees QTcB Int : 482 ms AV dual-paced rhythm Abnormal ECG No previous ECGs available Confirmed by Aravind Casey ([id number]) on 10/20/2024 5:14:05 PM Referred By: Jagdish Lieberman Confirmed By: Aravind Casey
--- NOTE | 2024-10-20 17:15 | Electrocardiogram Report ---
Test Reason : Blood Pressure : */* mmHG Vent. Rate : 70 BPM Atrial Rate : 70 BPM P-R Int : 178 ms QRS Dur : 138 ms QT Int : 450 ms P-R-T Axes : 10 -26 222 degrees QTcB Int : 486 ms Atrial-sensed ventricular-paced rhythm Abnormal ECG When compared with ECG of 19-Oct-2024 16:31, (unconfirmed) Vent. rate has increased by 10 bpm Confirmed by Aravind Casey ([id number]) on 10/20/2024 5:14:36 PM Referred By: Jagdish Lieberman Confirmed By: Aravind Casey
--- NOTE | 2024-10-20 19:45 | XRay Report ---
EXAM: XR chest 1V portable CLINICAL HISTORY: Pneumothorax. TECHNIQUE: An X-ray image of the chest is obtained in AP projection. 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 No evidence of consolidation, collapse, still noted the left-sided mild pleural effusion Heart and Mediastinum: Heart size and shape are normal. No mediastinal widening or masses. No hilar or mediastinal lymphadenopathy. A left-sided cardiac pacemaker is seen in situ. Bony Thorax: Bony thorax appears intact without fractures or deformities. Soft Tissues: Soft tissues overlying the chest wall are unremarkable. IMPRESSION: 1. Still noted Left-sided chest tube with tip seen peripherally at mid lung zone (Partially obscured by ICD device) 2. Still seen apical lucency suggestive of minimal residual pneumothorax. 3. Still noted the left-sided mild pleural effusion. 4. No new consolidated or collapsed patches. 5. Overall improvement of the previous findings. Correlate clinically. Electronically signed by Dougie Carpenter 10-20-2024 7:45 PM
--- NOTE | 2024-10-20 20:17 | Communication Note ---
Date of Service: October 20, 2024 Repeat CXR with minimal pneumothorax. Chest tube to water seal with repeat CXR at 0. RN notified. 2144: Repeat CXR shows stable pneumothorax. Will maintain on water seal with repeat CXR in AM, possible removal of chest tube. Coding Level of Care Code None
[2024-10-20 20:47] VITALS: TEMP 98.1
--- OUTSIDE RECORDS SUMMARY | 2024-10-20 20:55 | External Medical Summary ---
Author Name Unknown Address Unknown Organization [facility] [address] [place] [id number] Laboratory Report Ordering Provider Test Date Status JULISA LAWSON 09/08/2024 12:10:05 Final Observation Date Value Abnormality Reference (Units ) Status WBC, Total 09/08/2024 12:10:05 5.88 4.00-10.8 0 (K/uL) Final RBC 09/08/2024 12:10:05 4.78 3.85-5.15 (M/uL) Final Hemoglobin 09/08/2024 12:10:05 14.5 12.0-15.3 (g/dL) Final HCT 09/08/2024 12:10:05 44.2 36.0-45.2 (%) Final MCV 09/08/2024 12:10:05 92.5 81.5-97.5 (fL) Final MCH 09/08/2024 12:10:05 30.3 27.0-34.0 (pg) Final MCHC 09/08/2024 12:10:05 32.8 32.0-36.0 (g/dL) Final RDW 09/08/2024 12:10:05 13.3 11.5-15.5 (%) Final Platelets 09/08/2024 12:10:05 208 140-400 (K /uL) Final MPV 09/08/2024 12:10:05 10.7 6.6-11.1 ( fL) Final Performing Location [facility] [address] [place] [id number]
--- OUTSIDE RECORDS SUMMARY | 2024-10-20 20:55 | External Medical Summary ---
Author Name Unknown Address Unknown Organization [id number] [address] [place] [id number] Laboratory Report Ordering Provider Test Date Status CHARLETTE SMALL 10/07/2024 09:22:48 Final Observation Date Value Abnormality Reference (Units ) Status WBC, Total 10/07/2024 09:22:48 5.33 4.00-10.8 0 (K/uL) Final RBC 10/07/2024 09:22:48 4.69 3.85-5.15 (M/uL) Final Hemoglobin 10/07/2024 09:22:48 14.1 12.0-15.3 (g/dL) Final HCT 10/07/2024 09:22:48 43.9 36.0-45.2 (%) Final MCV 10/07/2024 09:22:48 93.6 81.5-97.5 (fL) Final MCH 10/07/2024 09:22:48 30.1 27.0-34.0 (pg) Final MCHC 10/07/2024 09:22:48 32.1 32.0-36.0 (g/dL) Final RDW 10/07/2024 09:22:48 13.6 11.5-15.5 (%) Final Platelets 10/07/2024 09:22:48 191 140-400 (K /uL) Final MPV 10/07/2024 09:22:48 10.3 6.6-11.1 ( fL) Final Performing Location [facility] [address] [place] [id number]
--- OUTSIDE RECORDS SUMMARY | 2024-10-20 20:55 | External Medical Summary | Summary of Care ---
Author Name Unknown Organization [facility] Address [address] [place] [address] Phone [phone] Care Team Providers Care Basket Hand Weaver Name Role Phone Alicia Laura MD Primary Care Pr ovider Reason for Visit * Reason Comments Outpatient Testing Encounter Details Date Type Department Care Team (Late st Contact Info) Description 09/08/2024 12:10 PM EDT Laboratory Laboratory, [facility] [address] [facility] [place] [phone] [facility] [address] [facility] [place] [id number] Chronic HFrEF (heart failure with reduced ejection fraction) (HCC); Fatigue, unspecified type Allergies Active Allergy Reactions Criticality Noted Date Comments Diphenhydramine Neuro complications (Please comment) 08/05/2019 Nabumetone 01/12/2006 Purpuric rash and hives Other - Drugs 05/21/2007 Band aids rash Salicylates 05/14/2004 jittery, nervous with OTC sinus meds etc Simvastatin 05/14/2010 Statin intolerant muscle aches Carbamazepine 08/21/2019 Itch documented as of this encounter (statuses as of 09/08/2024) Medications BLOOD PRESSURE MONITORING DEVIIndications: HTN, goal below 140/90 Dispense a sphygmanometer 1 Device 0 07/22/19 11 Active EUCERIN EX CREAIndications: Eczematous dermatitis,Dry skin,Pruritic disorder as directed especially after bathing 420 g 2 04/19/20 14 Active SARNA 0.5-0.5 % EX LOTNIndications: Dry skin,Pruritic disorder as directed to itching skin instead of scratching 1 Bottle 3 04/19/20 14 Active Cyanocobalamin (B-12) 1000 MCG Capsule Take 1 Capsule by mouth daily. Active Cholecalciferol (VITAMIN D) 1000 units Tablet Take 1 Tablet by mouth every evening. Active Aspirin EC 81 MG Oral Tablet Delayed Release Take 1 Tablet by mouth in the morning. 30 Tablet 11 07/22/19 23 Active valACYclovir HCl 1 GM Oral Tablet (Valtrex) 2 pills every 12 hours for 1 day for cold sores 24 Tablet 1 11/02/19 23 Active Entresto 97-103 MG Oral Tablet (sacubitril-vals debbie 97-103 mg per tab)Indications: Chronic systolic heart failure (HCC) Take 1 Tablet by mouth in the morning and 1 Tablet before bedtime. 180 Tablet 3 5 6:49 PM EST 11/09/19 24 Active Carvedilol 6.25 MG Oral Tablet (Coreg)Indicatio ns:Chronic systolic heart failure (HCC),Chronic HFrEF (heart failure with reduced ejection fraction) (HCC) TAKE ONE TABLET BY MOUTH TWICE A DAY IN THE MORNING AND BEFORE BEDTIME 180 Tablet 3 5 7:33 AM EDT 11/23/19 24 025 Active Escitalopram Oxalate 5 MG Oral Tablet (Lexapro)Indicat ions:Current moderate episode of major depressive disorder without prior episode (HCC) TAKE ONE TABLET BY MOUTH EVERY MORNING 90 Tablet 3 5 9:20 AM EDT 12/04/19 24 025 Active Montelukast Sodium 10 MG Oral Tablet (Singulair) Take 1 Tablet by mouth in the morning. 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 50 Tablet 1 5 1:11 PM EST 04/23/20 24 Active Empagliflozin 10 MG Oral Tablet (Jardiance)Indic ations:Type 2 diabetes mellitus with hemoglobin A1c goal of less than 8.0% ([facility]),Left heart failure with reduced left ventricular function ([facility]) Take 1 Tablet by mouth in the morning. 100 Tablet 3 5 7:45 AM EST 06/24/19 25 Active Betamethasone Dipropionate 0.05 % External Ointment Apply topically to affected area. Apply a small amount to the affected area twice daily as needed Active Ezetimibe 10 MG Oral Tablet (Zetia)Indicatio ns:Chronic HFrEF (heart failure with reduced ejection fraction) ([facility]),HTN, goal below 130/80,Dyslipide becky, goal LDL below 70 Take 1 Tablet by mouth in the morning. 90 Tablet 3 09/09/19 25 Active Spironolactone 25 MG Oral Tablet (Aldactone)Indic ations:Chronic HFrEF (heart failure with reduced ejection fraction) ([facility]) Take 0.5 Tablets by mouth in the morning. 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 11/25/2023 Nonobstructive atherosclerosis of coronary arter y 11/25/2023 Recurrent major depressive disorder 11/20/2021 Type 2 diabetes mellitus wit h stage 3b chronic kidney disease, without long-term current use of insulin 09/16/2021 Overview: Per CKD protocol Benign hypertension with stage 3b chronic kidney disease 09/16/2021 Overview: Per CKD protocol Chronic kidney disease, stage 3b 09/16/2021 Overview: Per CKD protocol Type 2 diabetes mellitus wit h diabetic peripheral angiopathy without gangrene 01/30/2021 Gastritis 04/16/2018 DDD (degenerative disc disease), cervical 2015 Statin intolerance 03/20/2014 HTN, goal below 130/80 11/24/2012 Type 2 diabetes mellitus wit h hemoglobin A1c goal of less than 8.0% 02/16/2008 Overview (10/02/2015): Per Diabetes Taxonomy. ICD-10 update of inactive term Dyslipidemia, goal LDL below 70 documented as of this encounter (statuses as of 09/08/2024) Resolved Problems Problem Noted Date Diagnosed Date Resolved Date Current moderate episode of major depressive disorder without prior episode 11/25/2023 Stage 3 chronic kidney disease 11/12/2022 05/23/2024 Major depressive disorder with single episode 05/22/20 21 05/23/2024 Chronic kidney disease, stage 3a 11/20/2020 09/19/2021 Overview: Per CKD protocol Trigger ring finger of right hand 10/19/2020 05/22/2021 Benign hypertension with sta ge 3a chronic kidney disease 10/16/2020 09/19/2021 Overview: Per CKD protocol Subungual hematoma of second toe of left foot 09/04/19 21 05/22/2021 Toe injury, left, initial encounter 09/03/2020 01/30/2021 Trigeminal neuralgia 12/22/2019 022 Benign hypertension with CKD (chronic kidney disease) stage III 04/15/2018 10/18/2020 Overview: Per CKD protocol Type 2 diabetes mellitus wit h stage 3a chronic kidney disease, without long-term current use of insulin 10/13/2017 09/19/2021 Overview: Per CKD protocol Hx of vasculitis 10/20/2016 04/13/2017 Multinodular goiter 03/27/2016 11/25/19 24 Kidney disease, chronic, sta ge III (GFR 30-59 ml/min) 08/21/2014 02/16/2020 Overview: Per CKD protocol #1 Eczematous dermatitis 05/19/20142015 Pruritic disorder 05/19/2014 10/20/2016 Dry skin 05/19/2014 03/27/2016 Proteinuria 09/04/2010 03/27/2016 Coronary atherosclerosis 09/04/2010 Dyslipidemia, goal LDL below 100 07/12/2010 03/27/2016 Edema 07/12/2010 03/27/2016 Allergic purpura 07/12/2010 03/27/2016 Dyslipidemia, goal LDL below 130 06/18/2009 07/12/2010 Dyslipidemia, goal LDL below 100 05/15/2009 06/18/2009 Overview (05/15/2009): Per Lipid Taxonomy. Type 2 diabetes mellitus wit h hemoglobin A1c goal of less than 7.0% 04/05/2009 09/21/2014 Overview (10/02/2015): Per Diabetes Taxonomy. ICD-10 update of inactive term Statin intolerance 07/19/2008 6 FABI inhibitor intolerance 05/21/2007 Overview (05/21/2007): cough ADVANCE DIRECTIVE INFORMATION 01/12/2006 03/27/2016 Overview (01/12/2006): Information offered-patient declined. Cardiac disease 04/30/2004 01/28/2010 Overview (04/30/2004): stress test 04/01/04-(+) CAD & mild ischemia DM type 2, not at goal 04/30/200402/05 HTN, goal to be determined 04/30/2004 1 07/01/2008 Overview (05/01/2009): Modified per HTN protocol #16. DIVERTICULOSIS OF COLON 01/23/2003 10 Goiter 01/23/2003 03/27/2016 dysplastic nevi 04/28/2002 03/27/2016 Insomnia 12/11/1999 03/27/2016 Overview (03/09/2017): ICD-10 update of inactive term Mixed dyslipidemia 01/30/1999 9 Overview (05/15/2009): Per Lipid Taxonomy. ALLERGIC RHINITIS NOS 01/30/19992014 MENOPAUSE - 1985 01/29/1998 10/01/2015 BENIGN HYPERTENSION 01/29/1998 07/19/19 09 Mixed dyslipidemia 06/08/1988 7 HTN, goal to be determined 0 11/24/2012 documented as of this encounter (statuses as of 09/08/2024) Immunizations Name Administration Dates Next Due COVID-19 mRNA, LNP-s, No Pre serve, 2-Dose Series (BookShout!) 04/16/2021,08/22/2020,08/01/2020 COVID-19, LNP-s, No Preserve , John-sucrose, Ages 12+ (Pfizer) 10/15/2021 Covid-19, Mrna, Lnp-s, Pf, B ivalent, 30 Mcg, IM, 12 yrs and above (BookShout!) 07/03/2022 Hepatitis B, 20+ yrs 04/13/2017,10/27/2016,09/23 Pneumococcal Conjugate Vacc, 13 Valent (Prevnar) 03/20/2015 Pneumococcal Polysaccharide PPV23 (Pneumovax) 05/22/2016,12/22/2005 Respiratory Syncytial Virus (Rsv) Mab, Unspecified 03/04/2024 Season Influenza, Quad, PF, Adjuvanted, 65+ Yrs, IM (FLUAD) 02/23/2020 Seasonal Influenza Vac., MDV , IM, 0.5 mL (Fluzone) 03/20/2014,03/14/2013,06/17/2012,04/18,03/20/2008,04/18/2007,04/02/2006 Seasonal Influenza Virus Vac cine, Unspecified Formulation 03/18/2022,02/27/2021,02/23/2020,04/21,04/15/2018,04/13/2017,03/27/2016 ,03/20/2015,03/20/2014,03/14/2013,06/08,04/18/2009,03/20/2008, 7,04/02/2006,03/18/2005,04/15/2004,,05/11/2001,05/14/2000,04/09/19 99 Seasonal Influenza, High Dos e, Trivalent, PF, IM (Fluzone HD) 04/11/2024 Seasonal Influenza, PF, 6 M & above, IM , (FluLaval or Fluzone) 04/15/2018,04/13/2017 Seasonal Influenza, Quadriva lent Hd (Fluzone Hd) 04/01/2023,03/18/2022,02/27/2021 Seasonal Influenza, Quadriva lent, No Preserve, IM 03/27/2016,03/20/2015 Seasonal Influenza, Trivalen t, Adjuvanted, 65+ YRS, PF, (Fluad) 04/21/2019 TDAP (age 10 and older)(Boostrix) 05/22/2021 TDAP, Age 7 and older, IM (Adacel) 07/11/2010 Varicella Zoster Vaccine Surjit lt (Zostavax) 06/08/2005 Zoster Vaccine Recombinant (Shingrix) 07/12/2019 ,04/26/2019 documented as of this encounter Social History Tobacco Use Types Packs/Day Years Used Date Smoking Tobacco: Never Smokeless Tobacco: Never Comments:no passive smoke Alcohol Use Standard Drinks/Week Comments Yes 0 (1 standard drink = 0.6 oz pur e alcohol) rarely, wine PHQ-2 Answer Date Recorded PHQ Adult Total Score 1 04/11/2024 Hunger Vital Sign Answer Date Recorded Within the past 12 months, y ou worried that your food would run out before you got the money to buy more. Never true 11/12/19 24 Within the past 12 months, t he food you bought just didn't last and you didn't have money to get more. Never true 11/12/2023 Childcare Answer Date Recorded Do you feel overwhelmed with taking care of a child, family member or friend? No 11/12/2023 Does your family need help f inding childcare? (Household - for ages 0-17 years) Not on file 11/12/2023 Clothing Answer Date Recorded Have you been unable to get clothing when it was really needed? No 11/12/2023 Is your family able to get c lothes or diapers when needed? (Household - for ages 0-17 years) Not on file 11/12/2023 Personal Safety Answer Date Recorded Do you feel unsafe or have concerns for your saf ety? No 11/12/2023 Do you have concerns for you r family's safety? (Household - for ages 0-17 years) Not on file 11/12/2023 Utilities Answer Date Recorded Do you have trouble paying y our heating, water, or electric bill? No 11/12/2023 Is your family able to pay t he heat, water, or electric bill? (Household - for ages 0-17 years) Not on file 11/12/2023 Does your family have access to good internet? (Household - for ages 0-17 years) Not on file 11/12/2023 Employment Status Answer Date Recorded Are you unemployed or without regular income? No 11/12/2023 Does the household have a [facility] source of income? (Household - for ages 0-17 years) Not on file 11/12/2023 Social Connections Answer Date Recorded How often do you feel lonely or isolated from th ose around you? Never 11/12/2023 Financial Resource Strain Answer Date R ecorded Do you have any trouble payi ng for your medications, or do you think you might in the future? No 11/12/2023 Does your family have troubl e paying for medicine? (Household - for ages 0-17 years) Not on file 11/12/2023 Transportation Needs Answer Date Record ed READ ONLY Do you have troubl e getting a ride to medical visits or work? Never True 11/12/2023 Does your family have a hard time getting a ride to doctors visits? (Household - for ages 0-17 years) Not on file 11/12/2023 Has lack of transportation k ept you from medical appointments, meetings, work, or from getting things needed for daily living? Check all that apply. (Adult - for ages 18 years and over) Not on file 11/12/2023 Do you (or your family) have trouble finding or paying for a ride (transportation)? (Household - for ages 0-17 years) Not on file 11/12/2023 Housing Stability Answer Date Recorded Do you currently live in a s helter or have no steady place to sleep at night? No 11/12/2023 READ ONLY Do you think you a re at risk of becoming homeless? No 11/12/2023 Does your family worry about paying for your home or becoming homeless? (Household - for ages 0-17 years) Not on file 0 11/12/2023 Are you homeless or worried that you might be in the future? (Adult - for ages 18 years and over) Not on file Are you (or your family) sharif eless or worried that you might be in the future? (Household - for ages 0-17 years) Not on file Food Insecurity Answer Date Recorded Do you need food for this week? No 11/12/2023 Are you able to get enough f ood for your family? (Household - for ages 0-17 years) Not on file 11/12/2023 Does your family need food t his week? (Household - for ages 0-17 years) Not on file 11/12/2023 Do you always have enough fo od for your family? (Household - for ages 0-17 years) Not on file 11/12/2023 Food Insecurity Answer Date Recorded Within the past 12 months, y ou worried that your food would run out before you got the money to buy more. Never true 11/12/19 24 Within the past 12 months, t he food you bought just didn't last and you didn't have money to get more. Never true 11/12/2023 Do you need food for this week? 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 Not on file Not on file retired Not on file Not on file Not on file documented as of this encounter Plan of Treatment Upcoming Encounters Date Type Department Care Team (Late st Contact Info) Description 09/27/2024 9:15 AM EDT Cardiac Studies Cardiac Studies, [facility] [address] [place] [phone] 11/21/2024 11:20 AM EDT Office Visit Family Medicine [address] [place] [phone] Alicia Laura MD [address] [place] [address] [place] [phone] 02/01/2025 2:00 PM EDT Office Visit Nephrology, [facility] [address] [place] [address] ZeGinger to PA-C [address] [place] [id number] 04/04/2025 10:00 AM EDT Office Visit Cardiology, [facility] [address] [place] [phone] Estiven Mehta DO [address] [place] [phone] 04/13/2025 9:00 AM EST Nurse Only Ancillary [address] [place] [address] [place], Nurse [address] [place] [address] Pending Results Name Type Priority Associated Diagnoses Date /Time BNP, NT-PRO Lab Routine Chronic HFrEF (heart failure with reduced ejection fraction) (HCC) Fatigue, unspecified type 09/08/2024 12:10 PM EDT TSH WITH FREE T4 IF INDICATED Lab Routine Fatigue, unspecified type 09/08/2024 12:10 PM EDT Scheduled Procedures Name Priority Associated Diagnoses Date/Ti me COLONOSCOPY FLEXIBLE PROXIMAL DIAGNOSTIC Recall History of colon polyps Health Maintenance Due Date Last Done Comments COVID-19 Vaccine ( season) 2024 07/03/2022, 10/15/2021, 04/16/2021, Additional history exists Diabetic Eye Exam 10/04/2024 10/05/2023, (Done elsewhere), 10/31/2022, Additional history exists Albumin/Creatinine Ratio 11/12/2024 024, 10/30/2022, 11/18/2021, Additional history exists B-12 11/12/2024 11/13/2023, 10/07, 11/18/2021, Additional history exists HbA1c 11/15/2024 05/17/2024, 06/0 12/2023, 05/25/2023, Additional history exists GFR 03/10/2025 09/08/2024, 05/08, 11/13/2023, Additional history exists Adult Wellness Visit 04/11/2025 04/11/2024, 04/10/2023, 04/08/2022, Additional history exists Depression Monitoring 04/11/2025 04/11/2024 Diabetic Foot Exam 04/11/2025 04/11/2024, 1 06/10/2022, 04/08/2022, Additional history exists CKD PHOS USE SMARTSET 41185 05/17/202505/08, 05/25/2023, 09/02/2021, Additional history exists CKD HGB USE SMARTSET 94989 09/08/202509/08, 08/31/2023, 08/04/2022, Additional history exists DXA Scan 05/21/2029 05/21/2022, 05/08, 04/21/2017, Additional history exists DTap/Tdap Vaccines (3 - Td or Tdap) 05/22/2031 05/22/2021, 07/11/2010, 12/11/1999 Pneumococcal Vaccine: 50+ Years Completed 05/22/2016, 03/20/2015, 12/22/2005 Hepatitis B Vaccine Completed 04/13/2017, 10/27/2016, 09/23/2016 RETIRED - COLONOSCOPY-EVERY 5 YRS AGES 18-100 Discontinued 02/16/2018, 02/16/2018 Zoster Vaccines Completed 07/12/2019, 04/08, 06/08/2005 Influenza Vaccine (FLU shot) Completed 04/11/2024, 04/01/2023, 03/18/2022, Additional history exists HPV (Gardasil) Vaccine Aged Out No lo nger eligible based on patient's age to complete this topic MENINGOCOCCAL (MENACTRA/MENVEO) Aged Out No longer eligible based on patient's age to complete this topic Meningitis B Vaccine (Bexsero/Trumemba) Aged Out No longer eligible based on patient's age to complete this topic documented as of this encounter Medical Devices Implanted Type Area Inventory Control Manager Device Identifier Shelf Expiration Date Model / Serial / Lot Lens Intraoc 25.0 - [id number] - [id number] Implanted:Qty: 1 on 08/18/2017 by Jeff Chase MD at OR [facility] Left: Eye [employer] 06/07/2021 [id number] / [id number] / Lens Intraoc 25.5 - [id number] - [id number] Implanted:Qty: 1 on 09/08/2017 by Jeff Chase MD at OR [facility] Right: Eye [employer] 03/07/2022 [id number] / [id number] / [id number] documented as of this encounter Procedures Procedure Name Priority Date/Time Associated Diagnosis Comments COMPREHENSIVE METABOLIC PANEL Routine 09/08/2024 12:10 PM EDT Chronic HFrEF (heart failure with reduced ejection fraction) (HCC) Fatigue, unspecified type CBC Routine 09/08/2024 12:10 PM EDT Chronic HFrEF (heart failure with reduced ejection fraction) (HCC) Fatigue, unspecified type documented in this encounter Results * (ABNORMAL) COMPREHENSIVE METABOLIC PANEL (09/08/2024 12:10 PM EDT) BUN 33(H) 6 - 20 mg/dL 09/08/2024 1:52 PM EDT [facility] CREATININE 1.2(H) 0.5 - 1.0 mg/dL 09/08/2024 1:52 PM EDT [facility] EGFR 45(L) >=60 mL/min 09/08/2024 1:52 PM EDT [facility] Comment:eGFR is calculated b ased on the CKD-EPI 2020 equation. SODIUM 139 135 - 146 mmol/L 09/08/2024 1:52 PM EDT [facility] POTASSIUM 4.5 3.5 - 5.1 mmol/L 09/08/2024 1:52 PM EDT [facility]10 CHLORIDE 103 98 - 107 mmol/L 09/08/2024 1:52 PM EDT [facility] CO2 20(L) 22 - 32 mmol/L 09/08/2024 1:52 PM EDT [facility] ANION GAP 16(H) 7 - 15 mmol/L 09/08/2024 1:52 PM EDT [facility]10 GLUCOSE 91 70 - 120 mg/dL 09/08/2024 1:52 PM EDT [facility]10 Albumin 4.5 3.8 - 5.0 g/dL 09/08/2024 1:52 PM EDT [facility]10 AST 20 10 - 35 U/L 09/08/2024 1:52 PM EDT [facility] Alkaline Phosphatase 90 35 - 130 U/L 09/08/2024 1:52 PM EDT [facility]10 Bilirubin, Total 0.5 <=1.2 mg/dL 09/08/2024 1:52 PM EDT [facility]10 CALCIUM 9.6 8.4 - 10.2 mg/dL 09/08/2024 1:52 PM EDT [facility] Protein 7.0 6.0 - 8.3 g/dL 09/08/2024 1:52 PM EDT [facility] ALT 18 10 - 35 U/L 09/08/2024 1:52 PM EDT [facility] Blood Venous blood specimen / Unknown Venipuncture / Unknown 09/08/2024 12:10 PM EDT 09/08/2024 12:10 PM EDT us Estiven Mehta DO LAB BLOOD ORDERABLES Final R esult [facility] [place] [facility] [place] [phone] * CBC (09/08/2024 12:10 PM EDT) WBC 5.88 4.00 - 10.80 K/uL 09/08/2024 12:54 PM EDT [facility] RBC 4.78 3.85 - 5.15 M/uL 09/08/2024 12:54 PM EDT [facility] HGB 14.5 12.0 - 15.3 g/dL 09/08/2024 12:54 PM EDT [facility] HCT 44.2 36.0 - 45.2 % 09/08/2024 12:54 PM EDT [facility]10 MCV 92.5 81.5 - 97.5 fL 09/08/2024 12:54 PM EDT [facility] MCH 30.3 27.0 - 34.0 pg 09/08/2024 12:54 PM EDT [facility] MCHC 32.8 32.0 - 36.0 g/dL 09/08/2024 12:54 PM EDT [facility] RDW 13.3 11.5 - 15.5 % 09/08/2024 12:54 PM EDT [facility] PLT 208 140 - 400 K/uL 09/08/2024 12:54 PM EDT [facility] MPV 10.7 6.6 - 11.1 fL 09/08/2024 12:54 PM EDT [facility] Blood Venous blood specimen / Unknown Venipuncture / Unknown 09/08/2024 12:10 PM EDT 09/08/2024 12:10 PM EDT us Estiven Mehta DO LAB BLOOD ORDERABLES Final R esult [facility] [address] [place] [phone] documented in this encounter Visit Diagnoses Diagnosis Chronic HFrEF (heart failure with reduced ejection fraction) (HCC) Fatigue, unspecified type documented in this encounter Advance Directives * Full Code (Latest Code Status on File) Date Activated Date Inactivated Comments 09/08/2017 6:43 AM 09/08/2017 1:13 PM This order ref lects the patients wishes and were consensually agreed upon. * Full Code Date Activated Date Inactivated Comments 08/18/2017 6:20 AM 08/18/2017 1:21 PM This order r eflects the patients wishes and were consensually agreed upon. Care Teams Basket Hand Weaver Relationship Specialty Start Date End Date Alicia Laura MD [address] [place] [address] [place] [phone] PCP - General Family Medicine 05/23/24 documented as of this encounter
--- OUTSIDE RECORDS SUMMARY | 2024-10-20 20:55 | External Medical Summary | Summary of Care ---
Author Name Unknown Organization [facility] Address [address] [place] [address] Phone [phone] Care Team Providers Care Engineering Design Manager Name Role Phone Alicia Laura MD Primary Care Pr ovider Reason for Visit * Reason Onset Date Comments Test Results 09/12/2024 Encounter Details Date Type Department Care Team (Late st Contact Info) Description 09/12/2024 Telephone Cardiology, [facility] [address] [place] [phone] Estiven Mehta, [address] [place] [phone] Test Results Allergies Active Allergy Reactions Criticality Noted Date Comments Diphenhydramine Neuro complications (Please comment) 08/05/2019 Nabumetone 01/12/2006 Purpuric rash and hives Other - Drugs 05/21/2007 Band aids rash Salicylates 05/14/2004 jittery, nervous with OTC sinus meds etc Simvastatin 05/14/2010 Statin intolerant muscle aches Carbamazepine 08/21/2019 Itch documented as of this encounter (statuses as of 09/12/2024) Medications BLOOD PRESSURE MONITORING DEVIIndications: HTN, goal [...] diabetic peripheral angiopathy without gangrene, 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 100 Tablet 3 5 7:45 AM EST 06/24/19 25 Active Betamethasone Dipropionate 0.05 % External Ointment Apply topically to affected area. Apply a small amount to the affected area twice daily as needed Active Ezetimibe 10 MG Oral Tablet (Zetia)Indicatio ns:Chronic HFrEF (heart failure with reduced ejection fraction) ([facility]),HTN, goal below 130/80,Dyslipide becky, goal LDL below 70 Take 1 Tablet by mouth in the morning. 90 Tablet 3 09/09/19 25 Active Spironolactone 25 MG Oral Tablet (Aldactone)Indic ations:Chronic HFrEF (heart failure with reduced ejection fraction) ([facility]) Take 0.5 Tablets by mouth in the morning. 45 Tablet 3 09/09/19 25 Active documented as of this encounter (statuses as of 09/12/2024) Active Problems Problem Noted Date Diagnosed Date [...] as of this encounter (statuses as of 09/12/2024) Resolved Problems Problem Noted Date Diagnosed Date [...] as of this encounter (statuses as of 09/12/2024) Immunizations Name Administration Dates Next Due COVID-19 mRNA, LNP-s, No Pre serve, 2-Dose Series ([employer]) 04/16/2021,08/22/2020,08/01/2020 COVID-19, LNP-s, No Preserve , John-sucrose, Ages 12+ (Pfizer) 10/15/2021 Covid-19, Mrna, Lnp-s, Pf, B ivalent, 30 Mcg, IM, 12 yrs and above (Pfizer) 07/03/2022 Hepatitis B, 20+ yrs 04/13/2017,10/27/2016,09/23 Pneumococcal [...] No 11/12/2023 Does the household have a [facility] source of income? 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 Lab Work reveals stable findings.I do not recommend any changes to her medications at present. I would like to the results of the upcoming echo ordered at the visit. Estiven Mehta DO documented in this encounter Plan of Treatment Upcoming Encounters Date Type Department Care Team (Late st Contact Info) Description 09/27/2024 9:15 AM EDT Cardiac Studies Cardiac Studies, [facility] [address] [place] [phone] 11/21/2024 11:20 AM EDT Office Visit Family Medicine [address] [place] [phone] Alicia Laura MD [address] [place] [address] [place] [phone] 02/01/2025 2:00 PM EDT Office Visit Nephrology, [facility] Workman [address] [place] [address] ZeGinger to PA-C [address] [facility] [place] [address] 04/04/2025 10:00 AM EDT Office Visit Cardiology, [facility] [address] [place] [phone] Estiven Mehta DO [address] [place] [address] 04/13/2025 9:00 AM EST Nurse Only Ancillary [address] [place] [address] Movkristine, Nurse [address] [place] [address] Scheduled Procedures Name Priority Associated Diagnoses Date/Ti [...] 11/18/2021, Additional history exists HbA1c 11/15/2024 05/17/2024, 0612/2023, 05/25/2023, Additional history exists GFR 03/10/2025 09/08/2024, 05/08, 11/13/2023, Additional history exists Adult Wellness Visit 04/11/2025 04/11/2024, 04/10/2023, 04/08/2022, Additional history exists Depression Monitoring 04/11/2025 04/11/2024 Diabetic Foot Exam 04/11/2025 04/11/2024, 1 06/10/2022, 04/08/2022, Additional history exists CKD PHOS USE SMARTSET 25158 05/17/202505/08, 05/25/2023, 09/02/2021, Additional history exists CKD HGB USE SMARTSET 76547 09/08/202509/08, 08/31/2023, 08/04/2022, Additional history exists DXA [...] this encounter Medical Devices Implanted Type Area Electric Well Logging Operator Device Identifier Shelf Expiration Date Model / Serial / Lot Lens Intraoc 25.0 - [id number] - [id number] Implanted:Qty: 1 on 08/18/2017 by Jeff Chase MD at [facility] Left: Eye BAUSCH & LOMB 06/07/2021 [id number] / [id number] / Lens Intraoc 25.5 - [id number] - [id number] Implanted:Qty: 1 on 09/08/2017 by Jeff Chase MD at [facility] Right: Eye BAUSCH & LOMB 03/07/2022 [id number] / [id number] documented as of this encounter Advance Directives * Full Code (Latest Code Status on File) Date Activated Date Inactivated Comments 09/08/2017 6:43 AM 09/08/2017 1:13 PM This order ref lects the patients wishes and were consensually agreed upon. * Full Code Date Activated Date Inactivated Comments 08/18/2017 6:20 AM 08/18/2017 1:21 PM This order r eflects the patients wishes and were consensually agreed upon. Care Teams Engineering Design Manager Relationship Specialty Start Date End Date Alicia Laura MD [address] [place] [address] [place] [phone] PCP - General Family Medicine 05/23/24 documented as of this encounter
--- OUTSIDE RECORDS SUMMARY | 2024-10-20 20:55 | External Medical Summary | Summary of Care ---
Author Name Unknown Organization [facility] Address [address] [place] [address] Phone [phone] Care Team Providers Care Office Administrative Assistant Name Role Phone Alicia Laura MD Primary Care Pr ovider Encounter Details Date Type Department Care Team (Late st Contact Info) Description 10/12/2024 Orders Only Family Medicine [address] [phone] Alicia Laura MD [address] [place] [address] [place] [phone] Allergies Active Allergy Reactions Criticality Noted Date Comments Diphenhydramine Neuro complications (Please comment) 08/05/2019 Nabumetone 01/12/2006 Purpuric rash and hives Other - Drugs 05/21/2007 Band aids rash Salicylates 05/14/2004 jittery, nervous with OTC sinus meds etc Simvastatin 05/14/2010 Statin intolerant muscle aches Carbamazepine 08/21/2019 Itch documented as of this encounter (statuses as of 10/12/2024) Medications BLOOD PRESSURE MONITORING DEVIIndications: HTN, goal [...] diabetic peripheral angiopathy without gangrene, 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 100 Tablet 3 5 10:53 AM EDT 06/24/19 25 Active Betamethasone Dipropionate 0.05 % External Ointment Apply topically to affected area. Apply a small amount to the affected area twice daily as needed Active Ezetimibe 10 MG Oral Tablet (Zetia)Indicatio ns:Chronic HFrEF (heart failure with reduced ejection fraction) ([facility]),HTN, goal below 130/80,Dyslipide becky, goal LDL below 70 Take 1 Tablet by mouth in the morning. 90 Tablet 3 09/09/19 25 Active Spironolactone 25 MG Oral Tablet (Aldactone)Indic ations:Chronic HFrEF (heart failure with reduced ejection fraction) ([facility]) Take 0.5 Tablets by mouth in the morning. 45 Tablet 3 09/09/19 25 Active documented as of this encounter (statuses as of 10/12/2024) Active Problems Problem Noted Date Diagnosed Date [...] as of this encounter (statuses as of 10/12/2024) Resolved Problems Problem Noted Date Diagnosed Date [...] as of this encounter (statuses as of 10/12/2024) Immunizations Name Administration Dates Next Due COVID-19 mRNA, LNP-s, No Pre serve, 2-Dose Series ([employer]) 04/16/2021,08/22/2020,08/01/2020 COVID-19, LNP-s, No Preserve , John-sucrose, Ages 12+ ([employer]) 10/15/2021 Covid-19, Mrna, Lnp-s, Pf, B ivalent, 30 Mcg, IM, 12 yrs and above ([employer]) 07/03/2022 Hepatitis B, 20+ yrs 04/13/2017,10/27/2016,09/23 Pneumococcal [...] No 11/12/2023 Does the household have a re lar source of income? 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 Not on file Not on file Not on file documented as of this encounter Plan of Treatment Upcoming Encounters Date Type Department Care Team (Late st Contact Info) Description 11/01/2024 9:15 AM EDT Cardiac Studies Cardiology, [facility] [address] [place] [phone] [facility] [address] [place] [address] 11/21/2024 11:20 AM EDT Office Visit Family Medicine [address] [place] [phone] Alicia Laura MD [address] [place] [address] [place] [phone] 02/01/2025 2:00 PM EDT Office Visit Nephrology, [facility] [address] [place] [address] ZeGinger to PA-C [address] [place] [address] 02/08/2025 9:30 AM EDT Cardiac Studies Cardiac Studies, [facility] [address] [place] [phone] 04/04/2025 10:00 AM EDT Office Visit Cardiology, [facility] [address] [place] [phone] Estiven Mehta, [address] [place] [address] 04/13/2025 9:00 AM EST Nurse Only Ancillary [address] [place] [address] Osvaldo Nurse Annual Wellness [address] [place] [address] [place] [address] Scheduled Procedures Name Priority Associated Diagnoses Date/Ti me COLONOSCOPY FLEXIBLE PROXIMAL DIAGNOSTIC Recall History of colon polyps Health Maintenance Due Date Last Done Comments COVID-19 Vaccine ( season) 2024 07/03/2022, 10/15/2021, 04/16/2021, Additional history exists Albumin/Creatinine Ratio 11/12/2024 024, 10/30/2022, 11/18/2021, Additional history exists B-12 11/12/2024 11/13/2023, 10/07, 11/18/2021, Additional history exists HbA1c 11/15/2024 05/17/2024, 06/0 12/2023, 05/25/2023, Additional history exists GFR 2025 10/07/2024, 04/0 08/2024, 05/17/2024, Additional history exists Adult Wellness Visit 04/11/2025 04/11/2024, 04/10/2023, 04/08/2022, Additional history exists Depression Monitoring 04/11/2025 04/11/2024 Diabetic Foot Exam 04/11/2025 04/11/2024, 1 06/10/2022, 04/08/2022, Additional history exists CKD PHOS USE SMARTSET 75665 05/17/202505/08, 05/25/2023, 09/02/2021, Additional history exists CKD HGB USE SMARTSET 39726 10/07/202510/07, 09/08/2024, 08/31/2023, Additional history exists Diabetic Eye Exam 10/12/2025 10/10/2024, , 09/30/2023 (Done elsewhere), Additional history exists DXA Scan 05/21/2029 05/21/2022, [...] this encounter Medical Devices Implanted Type Area Rehabilitation Aide Device Identifier Shelf Expiration Date Model / Serial / Lot Lens Intraoc 25.0 - [id number] - [id number] Implanted:Qty: 1 on 08/18/2017 by Jeff Chase MD at OR [facility] Left: Eye BAUSCH 06/07/2021 [id number] / [id number] / Lens Intraoc 25.5 - [id number] - [id number] Implanted:Qty: 1 on 09/08/2017 by Jeff Chase MD at OR [facility] Right: Eye BAUSCH 03/07/2022 [id number] / [id number] / [id number] documented as of this encounter Procedures Procedure Name Priority Date/Time Associated Diagnosis Comments DIABETIC EYE EXAM Routine 10/10/2024 documented in this encounter Results * DIABETIC EYE EXAM (10/10/2024) 10/10/2024 us Laila Johnson OD OTHER Final Re sult OUTSIDE LAB (SEE SCANNED REPORT) documented in this encounter Advance Directives * [...] and were consensually agreed upon. Care Teams Office Administrative Assistant Relationship Specialty Start Date End Date Cattoi Krsis, Alicia Yissel, MD [address] [place] [address] [place] [phone] PCP - General Family Medicine 05/23/24 documented as of this encounter
--- OUTSIDE RECORDS SUMMARY | 2024-10-20 20:55 | External Medical Summary | Summary of Care ---
Author Name Unknown Organization [facility] Address [address] [place] [address] Phone [phone] Care Team Providers Care Re Examiner Name Role Phone Alicia Laura MD Primary Care Pr ovider Reason for Visit * Reason Onset Date Comments Health Maintenance 09/26/2024 Encounter Details Date Type Department Care Team (Late st Contact Info) Description 09/26/2024 Telephone Family Medicine [address] [phone] Alicia Laura MD [address] [place] [address] [place] [phone] Health Maintenance Allergies Active Allergy Reactions Criticality Noted Date Comments Diphenhydramine Neuro complications (Please comment) 08/05/2019 Nabumetone 01/12/2006 Purpuric rash and hives Other - Drugs 05/21/2007 Band aids rash Salicylates 05/14/2004 jittery, nervous with OTC sinus meds etc Simvastatin 05/14/2010 Statin intolerant muscle aches Carbamazepine 08/21/2019 Itch documented as of this encounter (statuses as of 09/26/2024) Medications BLOOD PRESSURE MONITORING DEVIIndications: HTN, goal [...] peripheral angiopathy without gangrene, unspecified whether intermodal truck driver insulin use (HCC) TEST 1-2 TIMES A DAY 200 Strip 3 03/17/20 24 Active OneTouch Delica Plus Iuccny60L TEST 1-2 TIMES DAILY 200 Each 1 [...] hemoglobin A1c goal of less than 8.0% ([facility]),Left heart failure with reduced left ventricular function ([facility]) Take 1 Tablet by mouth in the morning. 100 Tablet 3 5 7:45 AM EST 06/24/19 25 Active Betamethasone Dipropionate 0.05 % External Ointment Apply topically to affected area. Apply a small amount to the affected area twice daily as needed Active Ezetimibe 10 MG Oral Tablet (Zetia)Indicatio ns:Chronic HFrEF (heart failure with reduced ejection fraction) ([facility]),HTN, goal below 130/80,Dyslipide becky, goal LDL below 70 Take 1 Tablet by mouth in the morning. 90 Tablet 3 09/09/19 25 Active Spironolactone 25 MG Oral Tablet (Aldactone)Indic ations:Chronic HFrEF (heart failure with reduced ejection fraction) ([facility]) Take 0.5 Tablets by mouth in the morning. 45 Tablet 3 09/09/19 25 Active documented as of this encounter (statuses as of 09/26/2024) Active Problems Problem Noted Date Diagnosed Date [...] as of this encounter (statuses as of 09/26/2024) Resolved Problems Problem Noted Date Diagnosed Date [...] per HTN protocol #16. DIVERTICULOSIS OF COLON 01/23/200303/09 Goiter 01/23/2003 03/27/2016 dysplastic nevi 04/28/2002 03/27/2016 Insomnia 12/11/1999 03/27/2016 Overview (03/09/2017): ICD-10 update of inactive term Mixed dyslipidemia 01/30/1999 9 Overview (05/15/2009): Per Lipid Taxonomy. ALLERGIC RHINITIS NOS 01/30/19992014 MENOPAUSE - 1985 01/29/1998 10/01/2015 BENIGN HYPERTENSION 01/29/1998 07/19/19 09 Mixed dyslipidemia 06/08/1988 7 HTN, goal to be determined 0 11/24/2012 documented as of this encounter (statuses as of 09/26/2024) Immunizations Name Administration Dates Next Due COVID-19 mRNA, LNP-s, No Pre serve, 2-Dose Series ([employer]) 04/16/2021,08/22/2020,08/01/2020 COVID-19, LNP-s, No Preserve , John-sucrose, Ages 12+ (Pfizer) 10/15/2021 Covid-19, Mrna, Lnp-s, Pf, B ivalent, 30 Mcg, IM, 12 yrs and above ([employer]) 07/03/2022 Hepatitis B, 20+ yrs 04/13/2017,10/27/2016,09/23 Pneumococcal [...] No 11/12/2023 Does the household have a [facility] source of income? 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 Not on file Not on file documented as of this encounter Miscellaneous Notes * Telephone Encounter - Peggy Nair LPN - 09/26/2024 11:59 AM EDT Care Gaps Comprehensive Care Outreach Last Office/Telemedicine Visit: 05/23/2024 (in office), Visit date not found (telemedicine) Next Office Visit: 11/21/2024 Hemoglobin AIC Results: Lab Results Component Value Date/Time HEMOGLOBIN A1C - [facility] 6.3 (H) 05/17/2024 08:17 AM HEMOGLOBIN A1C - [facility] 6.5 (H) 11/13/2023 08:11 AM HEMOGLOBIN A1C - [facility] 6.8 (H) 05/25/2023 08:31 AM HEMOGLOBIN A1C - [facility] 6.6 (H) 04/30/2020 08:36 AM HEMOGLOBIN A1C - [facility] 6.5 (H) 10/20/2019 08:32 AM HEMOGLOBIN A1C - [facility] 6.6 (H) 04/15/2019 08:59 AM BP Readings from Last 1 Encounters: 09/08/24 130/52 Reviewed Health Maintenance below: Health Maintenance Topic Date Due COVID-19 Vaccine ( season) 2024 Diabetic Eye Exam 10/04/2024 Albumin/Creatinine Ratio 11/12/2024 B-12 11/12/2024 HbA1c 11/15/2024 Labs Linda already ordered Eye trego d last Care Gap Outreach Action Taken: my g documented in this encounter Plan of Treatment Upcoming Encounters Date Type Department Care Team (Late st Contact Info) Description 09/27/2024 9:15 AM EDT Cardiac Studies Cardiac Studies, [facility] [place] [address] [place] [phone] 11/21/2024 11:20 AM EDT Office Visit Family Medicine [address] [place] [phone] Alicia Laura MD [address] [place] [address] [place] [phone] 02/01/2025 2:00 PM EDT Office Visit Nephrology, [address] [place] [address] ZeGinger to PA-C [address] [place] [address] 04/04/2025 10:00 AM EDT Office Visit Cardiology, [facility] [address] [place] [phone] Estiven Mehta, [address] [place] [address] 04/13/2025 9:00 AM EST Nurse Only Ancillary [address] [place] [address] Movkristine, Nurse [address] [place] [address] Scheduled Procedures Name Priority Associated Diagnoses Date/Ti [...] Additional history exists CKD PHOS USE SMARTSET 22947 05/17/202505/08, 05/25/2023, 09/02/2021, Additional history exists CKD HGB USE SMARTSET 87608 09/08/202509/08, 08/31/2023, 08/04/2022, Additional history exists DXA [...] this encounter Medical Devices Implanted Type Area Die Maintenance Technician Device Identifier Shelf Expiration Date Model / Serial / Lot Lens Intraoc 25.0 - [id number] - [id number] Implanted:Qty: 1 on 08/18/2017 by Jeff Chase MD at OR [facility] Left: Eye BAUSCH 06/07/2021 [id number] / [id number] / Lens Intraoc 25.5 - [id number] - [id number] Implanted:Qty: 1 on 09/08/2017 by Jeff Chase MD at [facility] Right: Eye BAUSCH 03/07/2022 [id number] / [id number] / [id number] documented as of this encounter Advance Directives [...] and were consensually agreed upon. Care Teams Re Examiner Relationship Specialty Start Date End Date Alicia Laura MD [address] [place] [address] [place] [phone] PCP - General Family Medicine 05/23/24 documented as of this encounter
--- OUTSIDE RECORDS SUMMARY | 2024-10-20 20:55 | External Medical Summary | Summary of Care ---
Author Name Unknown Organization [facility] Address [address] [place] [address] Phone [phone] Care Team Providers Care Bookkeepers Supervisor Name Role Phone Dada Laura MD Primary Care Pr ovider Reason for Referral * Precert (Diagnostic Medical) (Within 10 days (routine)) - Authorized Specialty Diagnoses / Procedures Referred By Contmildred t Referred To Contact Cardiac Studies Diagnoses Chronic HFrEF (heart failure with reduced ejection fraction) (HCC) Fatigue, unspecified type Procedures ECHO, COMPLETE (2D), TRANS-THORACIC Estiven Mehta DO [address] [place] [address] Phone: tel: fax: Referral ID Status Reason Start Date Expiration Date V isits Requested Visits Authorized [id number] Authorized Precert 09/08/2024 999 999 Reason for Visit * Reason Comments Follow Up Encounter Details Date Type Department Care Team (Late st Contact Info) Description 09/08/2024 11:00 AM EDT Office Visit Cardiology, [facility] [address] [place] [phone] Estiven Mehta DO [address] [place] [id number] Chronic HFrEF (heart failure with reduced ejection fraction) (HCC)*; HTN, goal below 130/80; Dyslipidemia, goal LDL below 70; Fatigue, unspecified type Allergies Active Allergy Reactions [...] HFrEF (heart failure with reduced ejection fraction) ([facility]) TAKE ONE TABLET BY MOUTH TWICE A DAY IN THE MORNING AND BEFORE BEDTIME 180 Tablet 3 5 7:33 AM EDT 11/23/19 24 025 Active Escitalopram Oxalate 5 MG Oral Tablet (Lexapro)Indicat ions:Current moderate episode of major depressive disorder without prior episode ([facility]) TAKE ONE TABLET BY MOUTH EVERY MORNING 90 Tablet 3 5 9:20 AM EDT 12/04/19 24 025 Active Montelukast Sodium 10 MG Oral Tablet (Singulair) Take 1 Tablet by mouth in the morning. 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 100 Tablet 3 5 7:45 AM EST 06/24/19 25 Active Betamethasone Dipropionate 0.05 % External Ointment Apply topically to affected area. Apply a small amount to the affected area twice daily as needed Active Ezetimibe 10 MG Oral Tablet (Zetia)Indicatio ns:Chronic HFrEF (heart failure with reduced ejection fraction) ([facility]),HTN, goal below 130/80,Dyslipide becky, goal LDL below 70 Take 1 Tablet by mouth in the morning. 90 Tablet 3 09/09/19 25 Active Spironolactone 25 MG Oral Tablet (Aldactone)Indic ations:Chronic HFrEF (heart failure with reduced ejection fraction) (HCC) Take 0.5 Tablets by mouth in the morning. 45 Tablet 3 09/09/19 25 Active Spironolactone 25 MG Oral Tablet (Aldactone)Indic ations:Chronic HFrEF (heart failure with reduced ejection fraction) (HCC) Take 0.5 Tablets by mouth in the morning. 45 Tablet 3 08/31/19 24 025 Discontin ued(Refil l) Ezetimibe 10 MG Oral Tablet (Zetia)Indicatio ns:Chronic HFrEF (heart failure with reduced ejection fraction) ([facility]),HTN, goal below 130/80,Dyslipide becky, goal LDL below 70 Take 1 Tablet by mouth in the morning. 90 Tablet 3 08/31/19 24 025 Discontin ued(Refil l) documented as of this encounter (statuses as [...] 05/23/2024 Major depressive disorder with single episode 05/22/2005/23/2024 Chronic kidney disease, stage 3a 11/20/2020 09/19/2021 Overview: Per CKD protocol Trigger ring finger of right hand 10/19/2020 05/22/2021 Benign hypertension with sta ge 3a chronic kidney disease 10/16/2020 09/19/2021 Overview: Per CKD protocol Subungual hematoma of second toe of left foot 09/04/1905/22/2021 Toe injury, left, initial encounter 09/03/2020 01/30/2021 [...] mRNA, LNP-s, No Pre serve, 2-Dose Series ([employer]) 04/16/2021,08/22/2020,08/01/2020 COVID-19, LNP-s, No Preserve , John-sucrose, Ages 12+ ([employer]) 10/15/2021 Covid-19, Mrna, Lnp-s, Pf, B ivalent, 30 Mcg, IM, 12 yrs and above ([employer]) 07/03/2022 Hepatitis B, 20+ yrs 04/13/2017,10/27/2016,09/23 Pneumococcal [...] 11/12/2023 Does the household have a re gular source of income? 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 Not on file Not on file retired Not on file Not on file Not on file documented as of this encounter Last Filed Vital Signs Vital Sign Reading Time Taken Comments Blood Pressure 130/52 09/08/2024 11:21 AM EDT Pulse 60 09/08/2024 11:21 AM EDT Temperature - - Respiratory Rate 14 09/08/2024 11:21 AM EDT Oxygen Saturation - - Inhaled Oxygen Concentration - - Weight 64.9 kg (143 lb) 09/08/2024 11:21 AM EDT Height - - Body Mass Index 26.16 05/23/2024 12:23 PM EST documented in this encounter Progress Notes * Estiven Mehta, - 09/08/2024 11:37 AM EDT 09/08/2024 Cardiology Follow Up PCP: DADA LAURA [address] [place] [address] [place] [phone] SUBJECTIVE: History of Present Illness Lisa Gamez is an 84 year old female with heart failure with reduced ejection fraction who presents with fatigue and exhaustion. Since early August 2024, she has experienced significant fatigue and exhaustion, similar to her condition in late 2021 and 2022. The fatigue is particularly pronounced after accompanying her to his [facility] rehab therapy sessions, often necessitating a two-hour nap, which impacts her ability to perform daily activities such as preparing dinner. She notes a sensation of her heart racing, especially after walking short distances, such as from aparking area to a building, despite not walking quickly. Her blood pressure readings at home have been between 125-130 systolic and 40-50 diastolic, with a recent manual reading of 130/52 and a heart rate of 60. She attributes some inconsistencies in readings to issues with her home blood pressure machine. Her past medical history includes heart failure with reduced ejection fraction, with an ejection fraction that improved from 20% to 40-44% in 2022. She has a history of left bundle branch block and sinus bradycardia, with a QRS duration of 164 milliseconds, unchanged from previous evaluations. Her most recent echocardiogram in July 2023 showed mildly impaired pump function. She is currently on multiple medications for her heart condition, including spironolactone, aspirin, carvedilol, Jardiance 10 mg daily, Entresto, ezetimibe, and amlodipine. She has been compliant with her medication regimen. Past Medical History: HFrEF/NICM, LVEF 20% per echo 07/2022. Improved to 40-44%% per echo 10/2022 and 40-44% in Jul 2023 Nonobstructive CAD with 30% mid LAD stenosis and luminal irregularities in the left circumflex and RCA, per cardiac catheterization at [facility] with Dr. Cox 08/19/2022 LBBB (chronic since 2022) Hypertension Type 2 diabetes Dyslipidemia, statin intolerance CKD, follows with neprhology Extensive ROS: All systems reviewed & are unremarkable except as noted in HPI & below Cardiovascular (chest pain/palpitations/fluttering/diaphoresis/dyspnea on exertion/paroxysmally nocturnal dyspnea):Negative Review of patient's allergies indicates: Allergen Reactions Benadryl [Diphenhydramine] Neuro complications (Please comment) Nabumetone Purpuric rash and hives Other - Drugs Band aids rash Salicylates jittery, nervous with OTC sinus meds etc Simvastatin Statin intolerant muscle aches Tegretol [Carbamazepine] Itch Current Outpatient Medications Medication Sig Dispense Refill Cyanocobalamin (B-12) 1000 MCG Capsule Take 1 Capsule by mouth daily. Cholecalciferol (VITAMIN D) 1000 units Tablet Take 1 Tablet by mouth every evening. Aspirin EC 81 MG Oral Tablet Delayed Release Take 1 Tablet by mouth in the morning. 30 Tablet 11 valACYclovir HCl 1 GM Oral Tablet (Valtrex) 2 pills every 12 hours for 1 day for cold sores 24 Tablet 1 Spironolactone 25 MG Oral Tablet (Aldactone) Take 0.5 Tablets by mouth in the morning. 45 Tablet 3 Ezetimibe 10 MG Oral Tablet (Zetia) Take 1 Tablet by mouth in the morning. 90 Tablet 3 Entresto 97-103 MG Oral Tablet (sacubitril-valsartan 97-103 mg per tab) Take 1 Tablet by mouth in the morning and 1 Tablet before bedtime. 180 Tablet 3 Carvedilol 6.25 MG Oral Tablet (Coreg) TAKE ONE TABLET BY MOUTH TWICE A DAY IN THE MORNING AND BEFORE BEDTIME 180 Tablet 3 Escitalopram Oxalate 5 MG Oral Tablet (Lexapro) TAKE ONE TABLET BY MOUTH EVERY MORNING 90 Tablet 3 Montelukast Sodium 10 MG Oral Tablet (Singulair) Take 1 Tablet by mouth in the morning. 90 Tablet 1 amLODIPine Besylate 5 MG Oral Tablet (Norvasc) Take one-half tablet by mouth in the morning. 50 Tablet 1 Empagliflozin 10 MG Oral Tablet (Jardiance) Take 1 Tablet by mouth in the morning. 100 Tablet 3 BLOOD PRESSURE MONITORING BREANNA Dispense a sphygmanometer 1 Device 0 EUCERIN EX CREA as directed especially after bathing 420 g 2 SARNA 0.5-0.5 % EX LOTN as directed to itching skin instead of scratching 1 Bottle 3 OneTouch Ultra In Vitro Strip (Glucose Blood) TEST 1-2 TIMES A DAY 200 Strip 3 OneTouch Delica Plus [id number] TEST 1-2 TIMES DAILY 200 Each 1 Betamethasone Dipropionate 0.05 % External Ointment Apply topically to affected area. Apply a smallamount to the affected area twice daily as needed No current facility-administered medications for this visit. OBJECTIVE/PHYSICAL EXAMINATION: BP 130/52 | Pulse 60 | Resp 14 | Wt 64.9 kg (143 lb) | BMI 26.16 kg/m² | BSA 1.69 m² General: no acute distress and stated age Eyes: conjunctiva are pink and non-injected, sclera clear Neck: normal jugular venous pulse, no hepatojugular reflux Chest: normal shape and normal respiratory effort Lungs: clear to auscultation , no rales rhonchi or wheezing Cardiac Exam: - regular heart sounds, no murmurs, rubs, or gallops Abdomen: abdomen soft, non-tender, no abnormal masses and no hepatosplenomegaly Musculoskeletal: no gait disturbance, no weakness Extremities: no edema and no cyanosis Neuro: grossly normal exam Psych: appropriate affect and insight. Data: Results DIAGNOSTIC EKG: Sinus bradycardia at 57 bpm, first-degree AV block, left bundle branch block, QRS duration 164ms (09/08/2024) Echocardiogram: Ejection fraction 40-44%, mildly impaired (07/2023) Summary of ttecho performed 07/17/23: There was normal sinus rhythm during the examination. The LV wall thickness is mildly increased (concentric). The left ventricular cavity size is moderately enlarged. The left atrium is severely enlarged. The septal motion is abnormal consistent with left bundle branch block. The remaining left ventricular wall segments are mildly hypokinetic. The qualitative LV ejection fraction is 40-44% (mildly reduced). There is mild mitral annular calcification. The mitral valve leaflets thickness is mildly increased. Mitral stenosis is absent. Moderate mitral regurgitation is present. The mitral regurgitation jet is posteriorly directed. Mild tricuspid regurgitation is present. The estimated pulmonary artery systolic pressure is 39 mm Hg (mildly elevated). Compared to the previous study dated 10/28/2022, no significant interval change. Latest Reference Range & Units 05/17/24 08:17 SODIUM 135 - 146 mmol/L 138 POTASSIUM 3.5 - 5.1 mmol/L 4.8 CHLORIDE 98 - 107 mmol/L 102 CO2 22 - 32 mmol/L 26 BUN 6 - 20 mg/dL 30 (H) CREATININE 0.5 - 1.0 mg/dL 1.3 (H) EGFR >=60 mL/min 40 (L) ANION GAP 7 - 15 mmol/L 10 GLUCOSE 70 - 120 mg/dL 95 CALCIUM 8.4 - 10.2 mg/dL 9.4 Phosphorus 2.5 - 4.8 mg/dL 3.8 Protein 6.0 - 8.3 g/dL 6.4 Estimated Average Glucose <126 mg/dL 134 (H) 25-Hydroxy Vitamin D >19 ng/mL 28 25-HYDROXY VITAMIN D Rpt Hemoglobin A1C 4.0 - 5.6 % 6.3 (H) (H): Data is abnormally high (L): Data is abnormally low Rpt: View report in Results Review for more information Latest Reference Range & Units 08/31/23 09:27 TSH 0.27 - 4.20 uIU/mL 3.05 Assessment & Plan Fatigue She reports increased fatigue and exhaustion, similar to her initial heart issues in late 2021 and 2022. Significant tiredness occurs after minimal exertion, such as accompanying her to therapy. The fatigue may be related to her heart condition or caregiving responsibilities. An echocardiogram is needed to assess potential changes in LVEF given her heart failure with reduced ejection fraction and left bundle branch block. - Order echocardiogram at [facility] within a month for reassessment - Perform blood work today, including complete blood count, kidney function tests, electrolytes, BNP, and thyroid-stimulating hormone. Chronic heart failure with reduced ejection fraction Her ejection fraction improved to 40-44% in 2022. The left bundle branch block may contribute to symptoms and decline inf LVEF, Current medications include Entresto, carvedilol, spironolactone, and others to manage her condition. Continuing these medications is crucial for managing heart failure and maintaining ejection fraction. - Continue current medications: Entresto, carvedilol, spironolactone, aspirin, Jardiance, ezetimibe, and amlodipine. - Refill spironolactone prescription. Left bundle branch block (LBBB) Her EKG shows sinus bradycardia with a first-degree AV block and left bundle branch block, unchanged from previous EKGs. The LBBB may contribute to heart failure symptoms by causing asynchronous contraction of the heart. Hypertension Blood pressure readings at home are generally 125-130 systolic, with diastolic readings in the 40s to 50s. Current reading is 130/52 with a heart rate of 60. Blood pressure is managed with amlodipineand carvedilol, which effectively maintain target ranges. - Continue current antihypertensive medications: amlodipine and carvedilol. Follow-up She is scheduled for a follow-up appointment in March, along with her . - Schedule follow-up appointment in March for both her and her . Follow up : Check-out note: Keep March visit Echo at within a month. Labs today Patient seen in longitudinal follow up of the above issues with assessment and plan as documented. Estiven Mehta DO Cardiology, [facility] [address] [place] [phone] Text in this note was generated using an [employer] documentation service. I discussed the use of a device to record and summarize our discussion today. All persons present during the encounter consented to its use. documented in this encounter Nursing Notes * Simona Escobar LPN - 09/08/2024 11:20 AM EDT Examination Room: Name: Lisa Gamez Date of : 1940 Reason for Visit: Follow up Problems/Concerns: Tired/fatigue Interim Hosp(s): denies Chest Pain/SOB: Denies CP, SOB with exertion MyChart Discussed: ALREADY ACTIVE Patient was instructed to not get up on the exam table until directed and assisted by their provider; patient is to remain seated in the chair/ wheelchair/ exam table for fall prevention and safety reasons. Patient is aware staff will assist stepping down off exam table with personnel. documented in this encounter Plan of Treatment Upcoming Encounters Date Type Department Care Team (Late st Contact Info) Description 09/27/2024 9:15 AM EDT Cardiac Studies Cardiac Studies, [facility] [address] [place] [phone] 11/21/2024 11:20 AM EDT Office Visit Family Medicine [address] [place] [phone] Dada Laura MD [address] [place] [address] [place] [phone] 02/01/2025 2:00 PM EDT Office Visit Nephrology, [facility] [address] [place] [address] Ginger Daniel PA-C [address] [place] [address] 04/04/2025 10:00 AM EDT Office Visit Cardiology, [facility] [address] [place] [phone] Estiven Mehta, [address] [place] [phone] 04/13/2025 9:00 AM EST Nurse Only Ancillary [address] [place] [address] [place], Nurse [address] [place] [address] Pending Results Name Type Priority Associated Diagnoses Date /Time BNP, NT-PRO Lab Routine Chronic HFrEF (heart failure with reduced ejection fraction) ([facility]) Fatigue, unspecified type 09/08/2024 12:10 PM EDT TSH WITH FREE T4 IF INDICATED Lab Routine Fatigue, unspecified type 09/08/2024 12:10 PM EDT Scheduled Orders Name Type Priority Associated Diagnoses Orde r Schedule EKG EKG Routine Chronic HFrEF (heart failure with reduced ejection fraction) ([facility]) HTN, goal below 130/80 Dyslipidemia, goal LDL below 70 Ordered: 09/08/2024 ECHO, COMPLETE (2D), TRANS-THORACIC Echocardiology Routine Chronic HFrEF (heart failure with reduced ejection fraction) ([facility]) Fatigue, unspecified type Expected: 09/08/2024 (Approximate), Expires: 03/10/2025 BNP, NT-PRO Lab Routine Chronic HFrEF (heart failure with reduced ejection fraction) ([facility]) Fatigue, unspecified type Expected: 09/08/2024, Expires: 09/08/2025 TSH WITH FREE T4 IF INDICATED Lab Routine Fatigue, unspecified type Expected: 09/08/2024, Expires: 09/08/2025 Scheduled Procedures Name Priority Associated Diagnoses Date/Ti [...] Additional history exists CKD PHOS USE SMARTSET 32481 05/17/202505/08, 05/25/2023, 09/02/2021, Additional history exists CKD HGB USE SMARTSET 65187 09/08/202509/08, 08/31/2023, 08/04/2022, Additional history exists DXA [...] this encounter Medical Devices Implanted Type Area Assistant Analyst Device Identifier Shelf Expiration Date Model / Serial / Lot Lens Intraoc 25.0 - [id number] - [id number] Implanted:Qty: 1 on 08/18/2017 by Jeff Chase MD at [facility] Left: Eye [employer] 06/07/2021 [id number] / [id number] / Lens Intraoc 25.5 - [id number] - [id number] Implanted:Qty: 1 on 09/08/2017 by Jeff Chase MD at [facility] Right: Eye [employer] 03/07/2022 [id number] / [id number] / [id number] documented as of this encounter Results * (ABNORMAL) COMPREHENSIVE METABOLIC [...] 1:52 PM EDT [facility] POTASSIUM 4.5 3.5 - 5.1 mmol/L 09/08/2024 1:52 PM EDT [facility] CHLORIDE 103 98 - 107 mmol/L 09/08/2024 1:52 PM EDT [facility] CO2 20(L) 22 - 32 mmol/L 09/08/2024 1:52 PM EDT [facility] ANION GAP 16(H) 7 - 15 mmol/L 09/08/2024 1:52 PM EDT [facility] GLUCOSE 91 70 - 120 mg/dL 09/08/2024 1:52 PM EDT [facility] Albumin 4.5 3.8 - 5.0 g/dL 09/08/2024 1:52 PM EDT [facility]10 AST 20 10 - 35 U/L 09/08/2024 1:52 PM EDT [facility]10 Alkaline Phosphatase 90 35 - 130 U/L 09/08/2024 1:52 PM EDT [facility] Bilirubin, Total 0.5 <=1.2 mg/dL 09/08/2024 1:52 PM EDT [facility]10 CALCIUM 9.6 8.4 - 10.2 mg/dL 09/08/2024 1:52 PM EDT [facility]10 Protein 7.0 6.0 - 8.3 g/dL 09/08/2024 1:52 PM EDT [facility] ALT 18 10 - 35 U/L 09/08/2024 1:52 PM EDT [facility] Blood Venous blood specimen / Unknown Venipuncture / Unknown 09/08/2024 12:10 PM EDT 09/08/2024 12:10 PM EDT us Estiven Mehta DO LAB BLOOD ORDERABLES Final R esult [facility]10 [address] [facility] [place] [id number] * CBC (09/08/2024 12:10 PM EDT) WBC 5.88 4.00 - 10.80 K/uL 09/08/2024 12:54 PM EDT [facility] RBC 4.78 3.85 - 5.15 M/uL 09/08/2024 12:54 PM EDT [facility] HGB 14.5 12.0 - 15.3 g/dL 09/08/2024 12:54 PM EDT [facility] HCT 44.2 36.0 - 45.2 % 09/08/2024 12:54 PM EDT [facility] MCV 92.5 81.5 - 97.5 [...] esult [facility] [address] [place] [phone] documented in this encounter Visit Diagnoses Diagnosis Chronic HFrEF (heart failure with reduced ejection fraction) (HCC)- Primary HTN, goal below 130/80 Unspecified essential hypertension Dyslipidemia, goal LDL below 70 Other and unspecified hyperlipidemia Fatigue, unspecified type documented in this encounter [...] and were consensually agreed upon. Care Teams Bookkeepers Supervisor Relationship Specialty Start Date End Date Dada Laura MD [address] [place] [address] [place] [phone] PCP - General Family Medicine 05/23/24 documented as of this encounter"
--- OUTSIDE RECORDS SUMMARY | 2024-10-20 20:55 | External Medical Summary | Summary of Care ---
Author Name Unknown Organization [facility] Address [address] [place] [address] Phone [phone] Care Team Providers Care Car Sales Consultant Name Role Phone Alicia Laura MD Primary Care Pr ovider Reason for Referral * Precert (Diagnostic Medical) (Within 10 days (routine)) - Authorized Specialty Diagnoses / Procedures Referred By Contac t Referred To Contact Cardiac Studies Diagnoses NICM (nonischemic cardiomyopathy) (HCC) LBBB (left bundle branch block) Chronic heart failure with reduced ejection fraction (HFrEF, <= 40%) (HCC) Procedures ECHO, COMPLETE (2D), TRANS-THORACIC [facility] Monte[facility] [address] [facility] [address] Phone: tel: fax: Referral ID Status Reason Start Date Expiration Date V isits Requested Visits Authorized [id number] Authorized Precert 02/07/2025 999 999 Reason for Visit * Reason Comments Consultation * Evaluate & Treat - Unlimited Visits (Within 30 days (routine)) - Authorized Specialty Diagnoses / Procedures Referred By Contact Referred To Contact Cardiac Electrophysiology / Cardiology Diagnoses Chronic HFrEF (heart failure with reduced ejection fraction) (HCC) LBBB (left bundle branch block) Estiven Mehta, [address] [place] [address] Phone: tel:[phone] fax:[phone] Referral ID Status Reason Start Date Expiration Date Visits Requested Visits Authorized [id number] Authorized Specialty Services Required 09/28/[phone] Encounter Details Date Type Department Care Team (Late st Contact Info) Description 10/07/2024 7:45 AM EDT Office Visit Cardiology, [facility] [address] [place] [phone] Iveth Montejo DO [address] [place] [address] NICM (nonischemic cardiomyopathy) ([facility])*; LBBB (left bundle branch block); Chronic heart failure with reduced ejection fraction (HFrEF, <= 40%) ([facility]) Allergies Active Allergy Reactions Criticality Noted Date Comments Diphenhydramine Neuro complications (Please comment) 08/05/2019 Nabumetone 01/12/2006 Purpuric rash and hives Other - Drugs 05/21/2007 Band aids rash Salicylates 05/14/2004 jittery, nervous with OTC sinus meds etc Simvastatin 05/14/2010 Statin intolerant muscle aches Carbamazepine 08/21/2019 Itch documented as of this encounter (statuses as of 10/07/2024) Medications BLOOD PRESSURE MONITORING DEVIIndications: HTN, goal [...] diabetic peripheral angiopathy without gangrene, unspecified whether correction insulin use ([facility]) TEST 1-2 TIMES A DAY 200 Strip 3 03/17/20 24 Active OneTouch Delica Plus [id number] TEST 1-2 TIMES DAILY 200 Each 1 [...] reduced ejection fraction) ([facility]) Take 0.5 Tablets by mouth in the morning. 45 Tablet 3 09/09/19 25 Active documented as of this encounter (statuses as of 10/07/2024) Active Problems Problem Noted Date Diagnosed Date [...] as of this encounter (statuses as of 10/07/2024) Resolved Problems Problem Noted Date Diagnosed Date [...] as of this encounter (statuses as of 10/07/2024) Immunizations Name Administration Dates Next Due COVID-19 mRNA, LNP-s, No Pre serve, 2-Dose Series ([facility]) 04/16/2021,08/22/2020,08/01/2020 COVID-19, LNP-s, No Preserve , John-sucrose, Ages 12+ ([facility]) 10/15/2021 Covid-19, Mrna, Lnp-s, Pf, B ivalent, 30 Mcg, IM, 12 yrs and above ([facility]) 07/03/2022 Hepatitis B, 20+ yrs 04/13/2017,10/27/2016,09/23 Pneumococcal [...] 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 Chief Complaint Patient presents with Consultation Pt referred to EP due to NICM Referring Provider: Dr. Mehta Cardiac Problems: NICM EF 20-24% 07/2022, improved to 40-44% in 10/2022 and 07/2023 but then reduced again in 09/2024 to 20% Chronic heart failure with reduced EF-NYHA Class III CAD non-obstructive cath 08/2022 (LAD mid 30%, LI CX and RCA) LBBB HTN HLD statin intolerance CKD stage III HPI: Pt had her friend on the phone today who typically comes to most of her appointments Pt has been very fatigue and tired Pt has SOB with exertion as well; all worsening over the past few years Pt denies any chest pain, palpitations, lightheadedness, dizziness, near syncopal episodes, lower extremity edema,orthopnea, no change in activity level or unexplained weight changes. 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 90 Tablet 1 OneTouch Ultra In Vitro Strip (Glucose Blood) TEST 1-2 TIMES A DAY 200 Strip 3 OneTouch Delica Plus [id number] TEST 1-2 TIMES DAILY 200 Each 1 amLODIPine Besylate 5 MG Oral Tablet (Norvasc) Take one-half tablet by mouth in the morning. 50 Tablet 1 Empagliflozin 10 MG Oral Tablet (Jardiance) Take 1 Tablet by mouth in the morning. 100 Tablet 3 Betamethasone Dipropionate 0.05 % External Ointment Apply topically to affected area. Apply a smallamount to the affected area twice daily as needed Ezetimibe 10 MG Oral Tablet (Zetia) Take 1 Tablet by mouth in the morning. 90 Tablet 3 Spironolactone 25 MG Oral Tablet (Aldactone) Take 0.5 Tablets by mouth in the morning. 45 Tablet 3 No current facility-administered medications for this visit. Past Medical History: Diagnosis Date FABI inhibitor intolerance 05/21/2007 cough Cardiac disease stress test 04/01/04-(+) CAD & mild ischemia Diverticulosis of colon 01/23/2003 DM type 2, goal A1c below 7 Diabetes Type II, Controlled Dyslipidemia, goal LDL below 100 dysplastic nevi Generalized anxiety disorder GOITER NOS 01/23/2003 HTN, goal to be determined Hx of vasculitis 10/20/2016 INSOMNIA NEC 12/11/1999 Proteinuria 09/04/2010 Past Surgical History: Procedure Laterality Date CARDIAC CATH-CARDIOLOGY ONLY 05/11 normal COLONOSCOPY, DIAGNOSTIC (RECTUM) 02/16/2018 hyperplastic polyp, diverticulosis, repeat 5 yrs/COLONOSCOPY FLEXIBLE PROXIMAL DIAGNOSTIC performedby Pamela Walton DO at [facility] COLONOSCOPY, DIAGNOSTIC (STOMA) 11/2003 negative except diverticuli CYSTOSCOPY 01/28/2011 DEXA SCAN/BONE MINERAL AXIAL 02/03/02 q 5 yrs DEXA SCAN/BONE MINERAL AXIAL 02/09/2007 normal, repeat in 5 yrs. EGD, FLEXIBLE, DIAGNOSTIC 02/16/2018 gastritis/ESOPHAGOGASTRODUODENOSCOPY (EGD), FLEXIBLE, TRANSORAL, DIAGNOSTIC performed by Pamela Walton DO at [facility] REMOVE CATARACT, INSERT LENS PROSTH Left 08/18/2017 left EXTRACAPSULAR CATARACT REMOVAL WITH INTRAOCULAR LENS performed by Jeff Chase MD at OR [facility] REMOVE CATARACT, INSERT LENS PROSTH Right 09/08/2017 right EXTRACAPSULAR CATARACT REMOVAL WITH INTRAOCULAR LENS performed by Jeff Chase MD at OR [facility] TENDON SHEATH INCISION, FINGER Right 10/31/2020 TRIGGER FINGER RELEASE performed by Neville Villa MD at OR [facility] TOTAL ABD HYSTERECTOMY W/WO REMOVAL OF TUBE(S) 1984 CHANG w/ Bilateral Salpingo-Oophorectomy, may have also removed appendix Review of patient's allergies indicates: Allergen Reactions Benadryl [Diphenhydramine] Neuro complications (Please comment) Nabumetone Purpuric rash and hives Other - Drugs Band aids rash Salicylates jittery, nervous with OTC sinus meds etc Simvastatin Statin intolerant muscle aches Tegretol [Carbamazepine] Itch Family History Problem Relation Name Age of Onset Diabetes Mother Stroke Mother at age 83 Other (thyroid disease) Mother Cancer Father Lung Heart Disorder Father Gastro-intestinal disorder Brother colon polyps Diabetes Brother Lavell Basala Gastro-intestinal disorder Brother Lavell Cancer Daughter Amarilys Gamez Other (Other) Daughter Amarilys Gamez pt denies hx of skin cancer for parents Family Status Relation Status Mo AODM, thyroid nodule, CVA Fa at age 77 [place], Lung Cancer Bro Alive benign colon polyps Bro (Not Specified) Bro (Not Specified) Bro (Not Specified) Kel at age 37 pancreatic cancer Kel (Not Specified) Social History Socioeconomic History Marital status: Spouse name: Shadi Number of children: 1 Years of education: Not on file Highest education level: Not on file Occupational History Occupation: sales secretary Comment: [employer] Occupation: retired Tobacco Use Smoking status: Never Smokeless tobacco: Never Tobacco comments: no passive smoke Vaping Use Vaping status: Never Used Substance and Sexual Activity Alcohol use: Yes Comment: rarely, wine Drug use: No Sexual activity: Yes Partners: Male control/protection: Condom, Surgical Comment: no domestic violence. Other Topics Concern Not on file Social History Narrative for 58yrs , one daughter passed in 2005 cancer Social Needs Financial Resource Strain: Low Risk (11/12/2023) Financial Resource Strain Do you have any trouble paying for your medications, or do you think you might in the future? (Adult - for ages 18 years and over): No Does your family have trouble paying for medicine? (Household - for ages 0-17 years): Not on file Food Insecurity: No Food Insecurity (11/12/2023) Food Insecurity Worried About Running Out of Food in the Last Year: Never true Ran Out of Food in the Last Year: Never true Do you need food for this week? (Adult - for ages 18 years and over): No Transportation Needs: No Transportation Needs (11/12/2023) Transportation Needs Do you have trouble getting a ride to medical visits or work? (Adult - for ages 18 years and over):Never True Does your family have a hard time getting a ride to doctors’ visits? (Household - for ages 0-17 years): Not on file Has lack of transportation kept you from medical appointments, meetings, work, or from getting things needed for daily living? Check all that apply. (Adult - for ages 18 years and over): Not on file Do you (or your family) have trouble finding or paying for a ride (transportation)? (Household - for ages 0-17 years): Not on file Social Connections: Socially Integrated (11/12/2023) Social Connections How often do you feel lonely or isolated from those around you? (Adult - for ages 18 years and over): Never Housing Stability: Low Risk (11/12/2023) Housing Stability Do you currently live in a mcfp or have no steady place to sleep at night? (Adult - for ages 18 years and over): No Do you think you are at risk of becoming homeless? (Adult - for ages 18 years and over): No Does your family worry about paying for your home or becoming homeless? (Household - for ages 0-17 years): Not on file Are you homeless or worried that you might be in the future? (Adult - for ages 18 years and over): Not on file Are you (or your family) homeless or worried that you might be in the future? (Household - for ages0-17 years): Not on file Review of Systems Constitutional: Positive for activity change and fatigue. Negative for chills, fever and unexpectedweight change. HENT: Negative for postnasal drip, rhinorrhea and sinus pressure. Eyes: Negative for visual disturbance. Respiratory: Positive for shortness of breath. Cardiovascular: Negative for chest pain, palpitations and leg swelling. Gastrointestinal: Negative for blood in stool, constipation, diarrhea, nausea and vomiting. Genitourinary: Negative for dysuria and hematuria. Musculoskeletal: Negative for gait problem. Skin: Negative for rash. Neurological: Positive for weakness. Negative for dizziness, syncope and light-headedness. Objective BP 136/72 (BP Site: Left Arm, BP Position: Sitting) | Pulse 60 | Resp 16 | Wt 62.9 kg (138 lb 9.6 oz) | BMI 25.35 kg/m² | BSA 1.66 m² Physical Exam Vitals and nursing note reviewed. Constitutional: General: She is awake. Appearance: Normal appearance. She is well-developed. HENT: Head: Normocephalic and atraumatic. Eyes: General: No scleral icterus. Extraocular Movements: Extraocular movements intact. Neck: Vascular: Normal carotid pulses. No carotid bruit or JVD. Cardiovascular: Rate and Rhythm: Normal rate and regular rhythm. Pulses: Carotid pulses are 2+ on the right side and 2+ on the left side. Radial pulses are 2+ on the right side and 2+ on the left side. Posterior tibial pulses are 2+ on the right side and 2+ on the left side. Heart sounds: S1 normal and S2 normal. Murmur heard. Pulmonary: Effort: Pulmonary effort is normal. Breath sounds: Normal breath sounds. No decreased breath sounds, wheezing, rhonchi or rales. Abdominal: Palpations: Abdomen is soft. Musculoskeletal: Cervical back: Neck supple. Right lower leg: No edema. Left lower leg: No edema. Skin: General: Skin is warm and dry. Neurological: General: No focal deficit present. Mental Status: She is alert and oriented to person, place, and time. Psychiatric: Attention and Perception: Attention normal. Mood and Affect: Mood normal. Speech: Speech normal. Behavior: Behavior normal. Behavior is cooperative. Thought Content: Thought content normal. Cognition and Memory: Cognition normal. Judgment: Judgment normal. RESULTS: Echocardiogram: 09/27/2024: The LV wall thickness is mildly increased (concentric). The left ventricular cavity size is mildly enlarged. The septal motion is abnormal consistent with left bundle branch block. The remaining left ventricular wall segments are moderately hypokinetic. The qualitative LV ejection fraction is 30-34% (moderately reduced). The left atrium is severely enlarged. The left ventricular diastolic function is moderately abnormal (grade II). The mitral valve leaflets thickness is mildly increased. There is no mitral valve prolapse present. Severe mitral regurgitation is present. The mitral regurgitation jet is eccentric and posteriorly directed. The mechanism of the mitral regurgitation appears to be due to left ventricular chamber dilatation and apical displacement of the chordae with resultant restriction of the excursion of the posterior mitral valve leaflet. The right ventricular chamber size and systolic function are normal. Mild tricuspid regurgitation is present. Mild pulmonary hypertension is present. The estimated pulmonary artery systolic pressure is 45mm Hg. Compared to the previous study dated 07/17/2023, there has been a decline in the left ventricular ejection fraction and severe mitral regurgitation is now noted 07/17/2023: There was normal sinus rhythm during the [...] study dated 10/28/2022, no significant interval change. 10/28/2022: The left ventricular cavity is moderately dilated (LVED volume 71-80 ml/m^2). The LV wall thickness is mildly increased (concentric). The qualitative LV ejection fraction is 40-44% (mildly reduced). The septal motion is abnormal consistent with left bundle branch block. The remaining left ventricular wall segments are mildly hypokinetic. The left atrium is severely enlarged (>48 ml/m^2,). Moderate mitral regurgitation is present. The mitral regurgitation jet is posteriorly directed. Mild tricuspid regurgitation is present. The estimated systolic pulmonary pressure is 44mmHg. Compared to last available study changes are noted as follows: Left ventricular systolic function has improved, moderate mitral regurgitation now present. 05/29/2016: The LV wall thickness is mildly increased (concentric). The qualitative LV ejection fraction is 5559% (normal). The left ventricular diastolic function is mildly abnormal (grade I). The left atrium is moderately enlarged. Mild mitral regurgitation is present. Mild tricuspid regurgitation is present. Exercise Echo Stress Test: 07/22/2022: The patient had initially presented for an exercise stress echocardiogram. After initial resting images were obtained however the stress portion the study was canceled in favor of a complete resting echocardiogram, and clinical cardiology assessment. Same day cardiology follow-up was arranged. The LV wall thickness is mildly increased (concentric). The septal motion is abnormal consistent with left bundle branch block. The remaining left ventricular wall segments are mildly hypokinetic. The qualitative LV ejection fraction is 20-24% (severely reduced). The right ventricular chamber size and systolic function is grossly normal. The left ventricular diastolic function is mildly abnormal (grade I). Mild mitral regurgitation is present. Compared to the images obtained at the time of the previous study dated 07/22/2022 there has been an interval decline in the left ventricular ejection fraction. ECGS: 09/08/2024: SB 57bpm 1st degree AV block LBBB 08/31/2023: SB 57bpm 1st degree AV block LBBB 07/22/2022: SR 67bpm 1st degree AV block LBBB 03/20/2014: SR 64bpm LVH Nonspecific ST abnormality 02/14/2011: SB 57bpm 05/10/2004: SR 61bpm 02/27/2004: SR 68bpm 02/26/2004: SR 84bpm Cardiac Catheterization: 08/2022 LM: Ok LAD: mid 30% Cx: LI RCA: LI 05/16/2004: Normal coronaries Lab Work Reviewed: Component Latest Ref Rng 10/30/2022 05/17/2024 09/08/2024 BUN 6 - 20 mg/dL 33 (H) CREATININE 0.5 - 1.0 mg/dL 1.2 (H) EGFR >=60 mL/min 45 (L) SODIUM 135 - 146 mmol/L 139 POTASSIUM 3.5 - 5.1 mmol/L 4.5 CHLORIDE 98 - 107 mmol/L 103 CO2 22 - 32 mmol/L 20 (L) ANION GAP 7 - 15 mmol/L 16 (H) GLUCOSE 70 - 120 mg/dL 91 Albumin 3.8 - 5.0 g/dL 4.5 AST 10 - 35 U/L 20 Alkaline Phosphatase 35 - 130 U/L 90 Bilirubin, Total <=1.2 mg/dL 0.5 CALCIUM 8.4 - 10.2 mg/dL 9.6 Protein 6.0 - 8.3 g/dL 7.0 ALT 10 - 35 U/L 18 WBC 4.00 - 10.80 K/uL 5.88 RBC 3.85 - 5.15 M/uL 4.78 HGB 12.0 - 15.3 g/dL 14.5 HCT 36.0 - 45.2 % 44.2 MCV 81.5 - 97.5 fL 92.5 MCH 27.0 - 34.0 pg 30.3 MCHC 32.0 - 36.0 g/dL 32.8 RDW 11.5 - 15.5 % 13.3 PLT 140 - 400 K/uL 208 MPV 6.6 - 11.1 fL 10.7 Triglycerides <=174 mg/dL 45 Cholesterol <200 mg/dL 161 HDL Cholesterol >49 mg/dL 90 Non-HDL Cholesterol <=159 mg/dL 71 LDL Cholesterol <=129 mg/dL 62 Hemoglobin A1C 4.0 - 5.6 % 6.3 (H) Estimated Average Glucose <126 mg/dL 134 (H) TSH 0.27 - 4.20 uIU/mL 1.74 ASSESSMENT: NICM EF 20-24% 07/2022, improved to 40-44% in 10/2022 and 07/2023 but then reduced again in 09/2024 to 20% LBBB Chronic heart failure with reduced EF-NYHA Class III CAD non-obstructive cath 08/2022 (LAD mid 30%, LI CX and RCA) HTN HLD statin intolerance CKD stage III DM Depression DDD PLAN: -I reviewed the cardiac conduction system with the patient and her friend on the phone and how it relates to her condition of NICM, LBBB and CHF -Recommend BiV ICD -Discussed procedure and risks which include but are not limited to arrhythmias, strokes, heart attacks, high risk injury to with blood vessels, lungs where she would need a chest tube or chamber of the heart where she would need a pericardiocentesis, , bleeding and infection with the patient and her friend on the phone today; they expressed an understanding and wish to proceed. -Procedure 10/19 -Hold jardiance prior to procedure -lab work prior to procedure -Continue with general cardiology as scheduled in oct -Repeat echo prior to general cardiology f/u -Device and wound check 10-14 days after the procedure -EP f/u 1 year A formal shared decision making process was performed with Lisa De Jesus Franco today utilizing the IDECIDE ICD evidence based tool from [employer] [place] [employer] Patient Centered Decisions. The discussion that followed was collaborative: detailing the information, risks, and benefits provided by the tool. We also discussed the values and preferences of Lisa Gamez to build a consensus regarding the preferred treatment plan. A decision was reached to proceed with BiV ICD. Iveth Montejo DO documented in this encounter Nursing Notes * Marla Ceron CMA - 10/07/2024 7:45 AM EDT Examination Room: 16 Name: Lisa Gamez Date of : (1940). Reason for Visit: evaluation for pacemaker/ICD Interim Hospitalization(s): denies Problems/Concerns: denies Chest Pain/SOB: denies [facility] Discussed: Yes [facility] is a way you can talk to your provider online through e-mail. Would you like to sign up? I can activate it for you? ALREADY ACTIVE Patient was instructed to not get up on the exam table until directed and assisted by their provider; patient is to remain seated in the chair/ wheelchair/ exam table for fall prevention and safety reasons. Patient is aware to have assistance to step down off exam table with personnel. Patient voiced full comprehension of instructions. documented in this encounter Plan of Treatment Upcoming Encounters Date Type Department Care Team (Late st Contact Info) Description 11/01/2024 9:15 AM EDT Cardiac Studies Cardiology, [facility] [address] [place] [phone] [facility] [address] [place] [phone] 11/21/2024 11:20 AM EDT Office Visit Family Medicine [address] [place] [phone] Alicia Laura MD [address] [place] [address] [place] [phone] 02/01/2025 2:00 PM EDT Office Visit Nephrology, [facility] [address] [place] [address] ZemaitisGinger PA-C [address] [place] [address] 02/08/2025 9:30 AM EDT Cardiac Studies Cardiac Studies, [facility] [address] [place] [phone] 04/04/2025 10:00 AM EDT Office Visit Cardiology, [facility] [address] [place] [phone] Estiven Mehta, [address] [place] [address] 04/13/2025 9:00 AM EST Nurse Only Ancillary [address] [place] [address] [place], Nurse Annual [address] [place] [phone] Scheduled Orders Name Type Priority Associated Diagnoses Orde r Schedule ECHO, COMPLETE (2D), TRANS-THORACIC Echocardiology Routine NICM (nonischemic cardiomyopathy) (HCC) LBBB (left bundle branch block) Chronic heart failure with reduced ejection fraction (HFrEF, <= 40%) (HCC) Expected: 02/07/2025 (Approximate), Expires: 11/07/2026 Scheduled Procedures Name Priority Associated Diagnoses Date/Ti [...] Additional history exists CKD PHOS USE SMARTSET 58666 05/17/202505/08, 05/25/2023, 09/02/2021, Additional history exists CKD HGB USE SMARTSET 79928 10/07/202510/07, 09/08/2024, 08/31/2023, Additional history exists DXA Scan 05/21/2029 05/21/2022, [...] this encounter Medical Devices Implanted Type Area Manager Benefit Device Identifier Shelf Expiration Date Model / Serial / Lot Lens Intraoc 25.0 - [id number] - [id number] Implanted:Qty: 1 on 08/18/2017 by Jeff Chase MD at [facility] Left: Eye BAUSCH 06/07/2021 [id number] / [id number] / Lens Intraoc 25.5 - [id number] - [id number] Implanted:Qty: 1 on 09/08/2017 by Jeff Chase MD at [facility] Right: Eye BAUSCH 03/07/2022 [id number] / [id number] / [id number] documented as of this encounter Results * (ABNORMAL) BASIC METABOLIC PANEL (10/07/2024 9:22 AM EDT) BUN 40(H) 6 - 20 mg/dL 10/07/2024 10:57 AM EDT LAB[facility] 57-10 CREATININE 1.3(H) 0.5 - 1.0 mg/dL 10/07/2024 10:57 AM EDT [facility] EGFR 43(L) >=60 mL/min 10/07/2024 10:57 AM EDT [facility] Comment:eGFR is calculated b ased on the CKD-EPI 2020 equation. SODIUM 141 135 - 146 mmol/L 10/07/2024 10:57 AM EDT [facility] POTASSIUM 4.9 3.5 - 5.1 mmol/L 10/07/2024 10:57 AM EDT [facility] CHLORIDE 103 98 - 107 mmol/L 10/07/2024 10:57 AM EDT [facility] CO2 24 22 - 32 mmol/L 10/07/2024 10:57 AM EDT [facility] ANION GAP 14 7 - 15 mmol/L 10/07/2024 10:57 AM EDT [facility] GLUCOSE 109 70 - 120 mg/dL 10/07/2024 10:57 AM EDT [facility] CALCIUM 9.7 8.4 - 10.2 mg/dL 10/07/2024 10:57 AM EDT [facility] Blood Venous blood specimen / Unknown Venipuncture / Unknown 10/07/2024 9:22 AM EDT 10/07/2024 9:22 AM EDT us Iveth Montejo DO LAB BLOOD ORDERABLES Fi nal Result [facility] [address] [place] [address] * CBC (10/07/2024 9:22 AM EDT) WBC 5.33 4.00 - 10.80 K/uL 10/07/2024 9:46 AM EDT [facility] RBC 4.69 3.85 - 5.15 M/uL 10/07/2024 9:46 AM EDT [facility] HGB 14.1 12.0 - 15.3 g/dL 10/07/2024 9:46 AM EDT [facility] HCT 43.9 36.0 - 45.2 % 10/07/2024 9:46 AM EDT [facility]10 MCV 93.6 81.5 - 97.5 fL 10/07/2024 9:46 AM EDT [facility]10 MCH 30.1 27.0 - 34.0 pg 10/07/2024 9:46 AM EDT [facility] MCHC 32.1 32.0 - 36.0 g/dL 10/07/2024 9:46 AM EDT [facility] RDW 13.6 11.5 - 15.5 % 10/07/2024 9:46 AM EDT [facility] PLT 191 140 - 400 K/uL 10/07/2024 9:46 AM EDT [facility] MPV 10.3 6.6 - 11.1 fL 10/07/2024 9:46 AM EDT [facility] Blood Venous blood specimen / Unknown Venipuncture / Unknown 10/07/2024 9:22 AM EDT 10/07/2024 9:22 AM EDT Iveth Montejo DO LAB BLOOD ORDERABLES Fi nal Result [facility] [place] [address] documented in this encounter Visit Diagnoses Diagnosis NICM (nonischemic cardiomyopathy) (HCC)- Primary Other primary cardiomyopathies LBBB (left bundle branch block) Other left bundle branch block Chronic heart failure with reduced ejection fraction (HFrEF, <= 40%) (HCC) documented in this encounter Advance Directives * [...] and were consensually agreed upon. Care Teams Car Sales Consultant Relationship Specialty Start Date End Date Alicia Laura MD [address] [place] [address] [place] [phone] PCP - General Family Medicine 05/23/24 documented as of this encounter"
--- OUTSIDE RECORDS SUMMARY | 2024-10-20 20:55 | External Medical Summary ---
Author Name Unknown Address Unknown Organization [facility] - [address] [place] [address] Laboratory Report Ordering Provider Test Date Status CHARLETTE SMALL 10/07/2024 09:22:48 Final Observation Date Value Abnormality Reference (Units ) Status BUN 10/07/2024 09:22:48 40 Above high normal 6-20 (mg/dL) Final Creatinine 10/07/2024 09:22:48 1.3 Above high normal 0.5-1.0 (mg/dL) Final Glomerular filtration rate/1.73 sq M.predicted [Volume Rate/Area] in Serum, Plasma or Blood by Creatinine-based formula (CKD-EPI) 10/07/2024 09:22:48 43 Below low normal >=60 (mL/min) Final eGFR is calculated based on the CKD-EPI 2020 equation. Sodium 10/07/2024 09:22:48 141 135-146 (m mol/L) Final Potassium 10/07/2024 09:22:48 4.9 3.5-5.1 (m mol/L) Final Cl 10/07/2024 09:22:48 103 98-107 (mm ol/L) Final CO2 10/07/2024 09:22:48 24 22-32 (mmo l/L) Final Anion gap 10/07/2024 09:22:48 14 7-15 (mmol /L) Final Glucose 10/07/2024 09:22:48 109 70-120 (mg /dL) Final Calcium 10/07/2024 09:22:48 9.7 8.4-10.2 ( mg/dL) Final Performing Location [facility] 0 - [address] [place] [address]
--- OUTSIDE RECORDS SUMMARY | 2024-10-20 20:55 | External Medical Summary | Summary of Care ---
Author Name Unknown Organization [facility] Address [address] [place] [address] Phone [phone] Care Team Providers Care Surgical Attendant Name Role Phone Alicia Laura MD Primary Care Pr ovider Reason for Visit * Reason Comments Outpatient Testing Encounter Details Date Type Department Care Team (Late st Contact Info) Description 10/07/2024 9:40 AM EDT Laboratory Laboratory, [facility] [address] [facility] [place] [phone] [facility] [address] [facility] [place] [address] NICM (nonischemic cardiomyopathy) ([facility]); LBBB (left bundle branch block); Chronic heart failure with reduced ejection fraction (HFrEF, <= 40%) ([facility]) Allergies Active Allergy Reactions Criticality Noted Date [...] diabetic peripheral angiopathy without gangrene, unspecified whether [facility] insulin use (HCC) TEST 1-2 TIMES A DAY 200 Strip 3 03/17/20 24 Active OneTouch Delica Plus [id number] TEST 1-2 TIMES DAILY 200 Each 1 [...] hemoglobin A1c goal of less than 8.0% ([facility]),Left heart failure with reduced left ventricular function ([facility]) Take 1 Tablet by mouth in the morning. 100 Tablet 3 5 10:53 AM EDT 06/24/19 25 Active Betamethasone Dipropionate 0.05 % External Ointment Apply topically to affected area. Apply a small amount to the affected area twice daily as needed Active Ezetimibe 10 MG Oral Tablet (Zetia)Indicatio ns:Chronic HFrEF (heart failure with reduced ejection fraction) ([facility]),HTN, goal below 130/80,Dyslipide becky, goal LDL below 70 Take 1 Tablet by mouth in the morning. 90 Tablet 3 09/09/19 25 Active Spironolactone 25 MG Oral Tablet (Aldactone)Indic ations:Chronic HFrEF (heart failure with reduced ejection fraction) ([facility]) Take 0.5 Tablets by mouth in the [...] mRNA, LNP-s, No Pre serve, 2-Dose Series ([employer]) 04/16/2021,08/22/2020,08/01/2020 COVID-19, LNP-s, No Preserve , John-sucrose, Ages 12+ (Pfizer) 10/15/2021 Covid-19, Mrna, Lnp-s, Pf, B ivalent, 30 Mcg, IM, 12 yrs and above ([employer]) 07/03/2022 Hepatitis B, 20+ yrs 04/13/2017,10/27/2016,09/23 Pneumococcal [...] 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 Not on file Not on file Not on file documented as of this encounter Plan of Treatment Upcoming Encounters Date Type Department Care Team (Late st Contact Info) Description 11/01/2024 9:15 AM EDT Card[facility] [address] [place] [phone] [facility] [address] [place] [address] 11/21/2024 11:20 AM EDT Office Visit Family Medicine [address] [place] [phone] Alicia Laura MD [address] [place] [address] [place] [phone] 02/01/2025 2:00 PM EDT Office Visit Nephrology, [facility] [address] [place] [address] ZemaitisGinger PA-C [address] [place] [address] 02/08/2025 9:30 AM EDT Cardiac Studies [facility] [address] [place] [phone] 04/04/2025 10:00 AM EDT [facility] [address] [place] [phone] Estiven Mehta DO [address] [place] [address] 04/13/2025 9:00 AM EST Nurse Only Ancillary [address] [place] [address] Osvaldo, Nurse Annual Wellness [address] [place] [address] [place] [address] Pending Results Name Type Priority Associated Diagnoses Date /Time BASIC METABOLIC PANEL Lab Routine NICM (nonischemic cardiomyopathy) ([facility]) LBBB (left bundle branch block) Chronic heart failure with reduced ejection fraction (HFrEF, <= 40%) ([facility]) 10/07/2024 9:22 AM EDT Scheduled Procedures Name Priority Associated Diagnoses [...] Additional history exists CKD PHOS USE SMARTSET 90634 05/17/202505/08, 05/25/2023, 09/02/2021, Additional history exists CKD HGB USE SMARTSET 45337 10/07/202510/07, 09/08/2024, 08/31/2023, Additional history exists DXA [...] this encounter Medical Devices Implanted Type Area Buyer Tobacco Head Device Identifier Shelf Expiration Date Model / Serial / Lot Lens Intraoc 25.0 - [id number] - [id number] Implanted:Qty: 1 on 08/18/2017 by Jeff Chase MD at OR [facility] Left: Eye BAUSCH 06/07/2021 [id number] / [id number] / Lens Intraoc 25.5 - [id number] - [id number] Implanted:Qty: 1 on 09/08/2017 by Jeff Chase MD at OR [facility] Right: Eye BAUSCH 03/07/2022 [id number] / [id number] / [id number] documented as of this encounter Procedures Procedure Name Priority Date/Time Associated Diagnosis Comments CBC Routine 10/07/2024 9:22 AM EDT NICM (nonischemic cardiomyopathy) (HCC) LBBB (left bundle branch block) Chronic heart failure with reduced ejection fraction (HFrEF, <= 40%) (HCC) documented in this encounter Results * CBC (10/07/2024 9:22 AM EDT) WBC 5.33 4.00 - 10.80 K/uL 10/07/2024 9:46 AM EDT [facility] RBC 4.69 3.85 - 5.15 M/uL 10/07/2024 9:46 AM EDT [facility]10 HGB 14.1 12.0 - 15.3 g/dL 10/07/2024 9:46 AM EDT [facility]10 HCT 43.9 36.0 - 45.2 % 10/07/2024 9:46 AM EDT [facility]10 MCV 93.6 81.5 - 97.5 fL 10/07/2024 9:46 AM EDT [facility]10 MCH 30.1 27.0 - 34.0 pg 10/07/2024 [...] Result [facility] [place] [address] documented in this encounter Visit Diagnoses Diagnosis NICM (nonischemic cardiomyopathy) (HCC) Other primary cardiomyopathies LBBB (left bundle branch [...] and were consensually agreed upon. Care Teams Surgical Attendant Relationship Specialty Start Date End Date Alicia Laura MD [address] [place] [address] [place] [phone] PCP - General Family Medicine 05/23/24 documented as of this encounter
--- OUTSIDE RECORDS SUMMARY | 2024-10-20 20:55 | External Medical Summary | Summary of Care ---
Author Name Unknown Organization [facility] Address [address] [place] [address] Phone [phone] Care Team Providers Care Decorative Greens Cutter Name Role Phone Alicia Laura MD Primary Care Pr ovider Reason for Visit * Reason Onset Date Comments Patient Instructions 10/07/2024 Encounter Details Date Type Department Care Team (Late st Contact Info) Description 10/07/2024 Telephone Cardiology, [facility] [address] [place] [address] Iveth Montejo, DO [address] [facility] [place] [address] Patient Instructions Allergies Active Allergy Reactions Criticality Noted Date [...] diabetic peripheral angiopathy without gangrene, unspecified whether detention insulin use (HCC) TEST 1-2 TIMES A DAY 200 Strip 3 03/17/20 24 Active OneTouch Delica Plus [id number] TEST 1-2 TIMES DAILY 200 Each 1 [...] heart failure with reduced left ventricular function ([facility]) Take 1 Tablet by mouth in the [...] mRNA, LNP-s, No Pre serve, 2-Dose Series ([employer]) 04/16/2021,08/22/2020,08/01/2020 COVID-19, LNP-s, No Preserve , John-sucrose, Ages 12+ (Pfizer) 10/15/2021 Covid-19, Mrna, Lnp-s, Pf, B ivalent, 30 Mcg, IM, 12 yrs and above ([employer]) 07/03/2022 Hepatitis B, 20+ yrs 04/13/2017,10/27/2016,09/23 Pneumococcal [...] No 11/12/2023 Does the household have a [facility] source of income? 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 Nothing to eat or drink after midnight, You may have clear liquids 4 hours prior to procedure No caffeine 24 hours prior to procedure No tobacco products after midnight Please report to the Main Entrance and check in at the outpatient registration desk. DO NOT TAKE the following medications the morning of the procedure. Jardiance NO over the counter vitamins, Fish oil and/or Vit E the morning of your procedure GLP-1 or SGLT-2 Instruction: Jardiance must be stopped 3 days prior to procedure. Pt may take all other medications regularly scheduled that morning including aspirin. DO NOT wear any jewelry the day of the procedure. Additional labs or testing needed: due today Bring all of your medications with you in their original containers. It may be necessary for you totake them after your procedure. Use Chlorhexidine wash the evening prior to and the morning of the procedure. Follow instructions given with the wash. 1/2 bottle night before, remaining 1/2 bottle the morning of procedure. Leave soap on skin for 2 minutes then rinse. You may remain at [facility] Overnight for observation. You will not be able to drive after procedure as you are given a form of anesthesia. Please bring adrive 18 or older to take you home. [place] will not be permitted to leave via taxi, public transportation/bus, Uber, etc. Wound check will be scheduled in [facility] Cardiology [facility] Office with Clinic Nurse. Your wound is NOT PERMITTED to get wet in any way while site is covered by bandage. You are unable to shower/swim/hot tub until given permission by clinic nurse in the office. Elbow is not allowed above shoulder level for 1 month. Avoid dental procedure/appointments for 6 months. Call Mindy at [phone] with any questions or concerns. documented in this encounter Plan of Treatment Upcoming Encounters Date Type Department Care Team (Late st Contact Info) Description 11/01/2024 9:15 AM EDT [facility] [address] [place] [phone] [facility] [address] [place] [address] 11/21/2024 11:20 AM EDT Office Visit Family Medicine [address] [place] [phone] Alicia Laura MD [address] [place] [address] [place] [phone] 02/01/2025 2:00 PM EDT Office Visit Nephrology, [facility] [address] [place] [address] ZemaGinger alonso PA-C [address] [place] [address] 02/08/2025 9:30 AM EDT Cardiac Studies Cardiac Studies, [facility] [address] [place] [phone] 04/04/2025 10:00 AM EDT [facility] [address] [place] [phone] Estiven Mehta, [address] [place] [address] 04/13/2025 9:00 AM EST Nurse Only Ancillary [address] [place] [address] Osvaldo Nurse Annual Wellness [address] [place] [address] [place] [address] Scheduled Procedures Name Priority Associated Diagnoses Date/Ti [...] 11/18/2021, Additional history exists HbA1c 11/15/2024 05/17/2024, 12/2023, 05/25/2023, Additional history exists GFR 03/10/2025 09/08/2024, 05/08, 11/13/2023, Additional history exists Adult Wellness Visit 04/11/2025 04/11/2024, 04/10/2023, 04/08/2022, Additional history exists Depression Monitoring 04/11/2025 04/11/2024 Diabetic Foot Exam 04/11/2025 04/11/2024, 1 06/10/2022, 04/08/2022, Additional history exists CKD PHOS USE SMARTSET 95995 05/17/202505/08, 05/25/2023, 09/02/2021, Additional history exists CKD HGB USE SMARTSET 91952 10/07/202510/07, 09/08/2024, 08/31/2023, Additional history exists DXA [...] this encounter Medical Devices Implanted Type Area Telephone Surveyor Device Identifier Shelf Expiration Date Model / Serial / Lot Lens Intraoc 25.0 - [id number] - [id number] Implanted:Qty: 1 on 08/18/2017 by Jeff Chase MD at OR [facility] Left: Eye BAUSCH 06/07/2021 [id number] / [id number] / Lens Intraoc 25.5 - [id number] - [id number] Implanted:Qty: 1 on 09/08/2017 by Jeff Chase MD at [facility] Right: Eye BAUSCH 03/07/2022 [id number] / [id number] / [id number] documented as of this encounter Advance Directives [...] and were consensually agreed upon. Care Teams Decorative Greens Cutter Relationship Specialty Start Date End Date Alicia Laura MD [address] [place] [address] [place] [phone] PCP - General Family Medicine 05/23/24 documented as of this encounter
--- OUTSIDE RECORDS SUMMARY | 2024-10-20 20:56 | External Medical Summary ---
Author Name Unknown Address Unknown Organization [facility] [place] [facility] - [address] [place] [address] Laboratory Report Ordering Provider Test Date Status JULISA LAWSON 09/08/2024 12:10:05 Final Observation Date Value Abnormality Reference (Units ) Status BUN 09/08/2024 12:10:05 33 Above high normal 6-20 (mg/dL) Final Creatinine 09/08/2024 12:10:05 1.2 Above high normal 0.5-1.0 (mg/dL) Final Glomerular filtration rate/1.73 sq M.predicted [Volume Rate/Area] in Serum, Plasma or Blood by Creatinine-based formula (CKD-EPI) 09/08/2024 12:10:05 45 Below low normal >=60 (mL/min) Final eGFR is calculated based on the CKD-EPI 2020 equation. Sodium 09/08/2024 12:10:05 139 135-146 (m mol/L) Final Potassium 09/08/2024 12:10:05 4.5 3.5-5.1 (m mol/L) Final Cl 09/08/2024 12:10:05 103 98-107 (mm ol/L) Final CO2 09/08/2024 12:10:05 20 Below low normal 22- 32 (mmol/L) Final Anion gap 09/08/2024 12:10:05 16 Above high normal 7- 15 (mmol/L) Final Glucose 09/08/2024 12:10:05 91 70-120 (mg /dL) Final Albumin 09/08/2024 12:10:05 4.5 3.8-5.0 (g /dL) Final AST (Aspartate aminotransferase) 09/08/2024 12:10:05 20 10-35 (U/L) Fin al Alk Phos 09/08/2024 12:10:05 90 35-130 (U/ L) Final Bilirubin, Total 09/08/2024 12:10:05 0.5 <=1 .2 (mg/dL) Final Calcium 09/08/2024 12:10:05 9.6 8.4-10.2 ( mg/dL) Final Protein 09/08/2024 12:10:05 7.0 6.0-8.3 (g /dL) Final ALT (Alanine aminotransferase) 09/08/2024 12:10:05 18 10-35 (U/L) Eyal og Performing Location [facility]1 0 - [address] [facility] [address]
--- OUTSIDE RECORDS SUMMARY | 2024-10-20 20:56 | External Medical Summary | Summary of Care ---
Author Name Unknown Organization [facility] Address [address] [facility] [address] Phone [phone] Care Team Providers Care Street Car Mechanic Name Role Phone Alicia Laura MD Primary Care Pr ovider Encounter Details Date Type Department Care Team (Latest Contact Info) Description 08/25/2024 Medication Management Kathleen Viera [facility] [address] [place] [address] Fredrick Molina, [facility] [phone] [place] [phone] Medication management* Allergies Active Allergy Reactions Criticality Noted Date Comments Diphenhydramine Neuro complications (Please comment) 08/05/2019 Nabumetone 01/12/2006 Purpuric rash and hives Other - Drugs 05/21/2007 Band aids rash Salicylates 05/14/2004 jittery, nervous with OTC sinus meds etc Simvastatin 05/14/2010 Statin intolerant muscle aches Carbamazepine 08/21/2019 Itch documented as of this encounter (statuses as of 08/25/2024) Medications BLOOD PRESSURE MONITORING DEVIIndications: HTN, goal [...] sores 24 Tablet 1 11/02/19 23 Active Spironolactone 25 MG Oral Tablet (Aldactone)Indic ations:Chronic HFrEF (heart failure with reduced ejection fraction) (HCC) Take 0.5 Tablets by mouth in the morning. 45 Tablet 3 08/31/19 24 Active Ezetimibe 10 MG Oral Tablet (Zetia)Indicatio ns:Chronic HFrEF (heart failure with reduced ejection fraction) (HCC),HTN, goal below 130/80,Dyslipide becky, goal LDL below 70 Take 1 Tablet by mouth in the morning. 90 Tablet 3 08/31/19 24 Active Entresto 97-103 MG Oral Tablet (sacubitril-vals [...] BY MOUTH EVERY MORNING 90 Tablet 3 4 6:21 AM EST 12/04/19 24 025 Active Montelukast Sodium 10 MG Oral Tablet (Singulair) Take 1 Tablet by mouth in the morning. 90 Tablet 1 03/08/20 24 Active OneTouch Ultra In Vitro Strip (Glucose Blood)Indication s:Type 2 diabetes mellitus with diabetic peripheral angiopathy without gangrene, unspecified whether fci insulin use (HCC) TEST 1-2 TIMES A DAY 200 Strip 3 03/17/20 24 Active OneTouch Delica Plus [id number] TEST 1-2 TIMES DAILY 200 Each 1 [...] hemoglobin A1c goal of less than 8.0% ([facility]),Left heart failure with reduced left ventricular function (HCC) Take 1 Tablet by mouth in the morning. 100 Tablet 3 5 7:45 AM EST 06/24/19 25 Active Betamethasone Dipropionate 0.05 % External Ointment Apply topically to affected area. Apply a small amount to the affected area twice daily as needed Active Biotin 09854 MCG TABS Take 1 Tablet by mouth daily. 025 Discontin ued(Medic ation List Clean Up) hydrOXYzine HCl 10 MG Oral Tablet (Atarax)Indicati ons:Other eczema Take 1 Tablet by mouth every 6 hours as needed for Itching. 40 Tablet 2 12/23/19 23 025 Discontin ued(Patie nt preferenc e/discont inuation) Furosemide 20 MG Oral Tablet (Lasix)Indicatio ns:Chronic systolic heart failure (HCC) Take 1 Tablet by mouth daily as needed (swelling). 30 Tablet 5 04/01/20 23 025 Discontin ued(Medic ation List Clean Up) documented as of this encounter (statuses as of 08/25/2024) Active Problems Problem Noted Date Diagnosed Date [...] as of this encounter (statuses as of 08/25/2024) Resolved Problems Problem Noted Date Diagnosed Date [...] as of this encounter (statuses as of 08/25/2024) Immunizations Name Administration Dates Next Due COVID-19 mRNA, LNP-s, No Pre serve, 2-Dose Series ([employer]) 04/16/2021,08/22/2020,08/01/2020 COVID-19, LNP-s, No Preserve , John-sucrose, Ages 12+ ([employer]) 10/15/2021 Covid-19, Mrna, Lnp-s, Pf, B ivalent, [...] older, IM (Adacel) 07/11/2010 Varicella Zoster Vaccine (Adult) 06/08/2005 Zoster Vaccine Recombinant (Shingrix) 07/12/2019 ,04/26/2019 [...] 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 Objective: Review of patient's allergies indicates: Allergen Reactions Benadryl [Diphenhydramine] Neuro complications (Please comment) Nabumetone Purpuric rash and hives Other - Drugs Band aids rash Salicylates jittery, nervous with OTC sinus meds etc Simvastatin Statin intolerant muscle aches Tegretol [Carbamazepine] Itch Current Outpatient Medications - WARNING: List may be incomplete due to filtering Medication Sig Dispense Refill Betamethasone Dipropionate 0.05 % External Ointment Apply topically to affected area. Apply a smallamount to the affected area twice daily as needed Empagliflozin 10 MG Oral Tablet (Jardiance) Take 1 Tablet by mouth in the morning. 100 Tablet 3 amLODIPine Besylate 5 MG Oral Tablet (Norvasc) Take one-half tablet by mouth in the morning. 50 Tablet 1 Montelukast Sodium 10 MG Oral Tablet (Singulair) Take 1 Tablet by mouth in the morning. 90 Tablet 1 Escitalopram Oxalate 5 MG Oral Tablet (Lexapro) TAKE ONE TABLET BY MOUTH EVERY MORNING 90 Tablet 3 Carvedilol 6.25 MG Oral Tablet (Coreg) TAKE ONE TABLET BY MOUTH TWICE A DAY IN THE MORNING AND BEFORE BEDTIME 180 Tablet 3 Entresto 97-103 MG Oral Tablet (sacubitril-valsartan 97-103 mg per tab) Take 1 Tablet by mouth in the morning and 1 Tablet before bedtime. 180 Tablet 3 Ezetimibe 10 MG Oral Tablet (Zetia) Take 1 Tablet by mouth in the morning. 90 Tablet 3 Spironolactone 25 MG Oral Tablet (Aldactone) Take 0.5 Tablets by mouth in the morning. 45 Tablet 3 valACYclovir HCl 1 GM Oral Tablet (Valtrex) 2 pills every 12 hours for 1 day for cold sores 24 Tablet 1 Aspirin EC 81 MG Oral Tablet Delayed Release Take 1 Tablet by mouth in the morning. 30 Tablet 11 Cholecalciferol (VITAMIN D) 1000 units Tablet Take 1 Tablet by mouth every evening. EUCERIN EX CREA as directed especially after bathing 420 g 2 SARNA 0.5-0.5 % EX LOTN as directed to itching skin instead of scratching 1 Bottle 3 OneTouch Delica Plus [id number] TEST 1-2 TIMES DAILY 200 Each 1 OneTouch Ultra In Vitro Strip (Glucose Blood) TEST 1-2 TIMES A DAY 200 Strip 3 Cyanocobalamin (B-12) 1000 MCG Capsule Take 1 Capsule by mouth daily. BLOOD PRESSURE MONITORING BREANNA Dispense a sphygmanometer 1 Device 0 Immunization History Administered Date(s) Administered COVID-19 mRNA, LNP-s, No Preserve, 2-Dose Series ([employer]) 08/01/2020, 08/22/2020, 04/16/2021 COVID-19, LNP-s, No Preserve, John-sucrose, Ages 12+ ([employer]) 10/15/2021 Covid-19, Mrna, Lnp-s, Pf, Bivalent, 30 Mcg, IM, 12 yrs and above (Pfizer) 07/03/2022 Hepatitis B, 20+ yrs 09/23/2016, 10/27/2016, 04/13/2017 Pneumococcal Conjugate Vacc, 13 Valent (Prevnar) 03/20/2015 Pneumococcal Polysaccharide PPV23 (Pneumovax) 12/22/2005, 05/22/2016 Respiratory Syncytial Virus (Rsv) Mab, Unspecified 03/04/2024 Season Influenza, Quad, PF, Adjuvanted, 65+ Yrs, IM (FLUAD) 02/23/2020 Seasonal Influenza Vac., MDV, IM, 0.5 mL (Fluzone) 1999, 05/14/2000, 05/11/2001, 03/28/2003, 04/15/2004, 03/18/2005, 04/02/2006, 04/18/2007, 03/20/2008, 04/18/2009, 06/17/2012, 03/14/2013, 03/20/2014 Seasonal Influenza Virus Vaccine, Unspecified Formulation 03/27/1998, 1999, 05/14/2000, 05/11/2001, 03/28/2003, 04/15/2004, 03/18/2005, 04/02/2006, 04/18/2007, 03/20/2008, 04/18/2009, 06/17/2012, 03/14/2013, 03/20/2014, 03/20/2015, 03/27/2016, 04/13/2017, 04/15/2018, 04/21/2019, 02/23/2020, 02/27/2021, 03/18/2022 Seasonal Influenza, High Dose, Trivalent, PF, IM (Fluzone HD) 04/11/2024 Seasonal Influenza, PF, 6 M & above, IM , (FluLaval or Fluzone) 04/13/2017, 04/15/2018 Seasonal Influenza, Quadrivalent Hd (Fluzone Hd) 02/27/2021, 03/18/2022, 04/01/2023 Seasonal Influenza, Quadrivalent, No Preserve, IM 03/20/2015, 03/27/2016 Seasonal Influenza, Trivalent, Adjuvanted, 65+ YRS, PF, (Fluad) 04/21/2019 TD - Tetanus/Diptheria (ADULT) 12/11/1999 TDAP (age 10 and older)(Boostrix) 05/22/2021 TDAP, Age 7 and older, IM (Adacel) 07/11/2010 Varicella Zoster Vaccine (Adult) 06/08/2005 Zoster Vaccine Recombinant (Shingrix) 04/26/2019, 07/12/2019 TMR Interventions Incomplete Encounter MTPs No medication therapy recommendations to display Complete Encounter MTPs No medication therapy recommendations to display Assessment & Plan Indication, effectiveness, safety and convenience of her medications were reviewed today. The patient's medical conditions were assessed, evaluated, and deemed meeting goals of drug therapy, with thefollowing exceptions. Additional Notes: Using GMO. Labs UTD. SMBG daily, stable. Checks BP daily in AM, stable. Only uses Singulair in spring/summer/fall for allergies. Hasn't ever needed Lasix, removed per pt. Hasn't needed hydroxyzine in over a year, removed per pt. Hasn't been consistently taking vitamin D daily. Discussed benefits of use and importance of adherence. Pt agreeable to take daily. Statin intolerant historically. Reviewed vaccinations. Refuses further COVID boosters at this time, otherwise UTD. Takeaway Information Who was the recipient of the CMR service: beneficiary Language Template for the Patient Takeaway: Libyan I attest that I have reviewed and updated the patient's conditions, allergies, and medications to the best of my ability. Patient provided medication list gathered by: Axel Masters RPh 08/25/2024, 11:21 AM documented in this encounter Miscellaneous Notes * MTM Personal Medication List - Fredrick Molina RPh - 08/25/2024 11:17 AM EDT Medication How I take it Why I use it Prescriber amLODIPine Besylate 5 MG Oral Tablet (Norvasc) Take one-half tablet by mouth in the morning. Blood Pressure Estiven Mehta, DO Aspirin EC 81 MG Oral Tablet Delayed Release Take 1 Tablet by mouth in the morning. Heart Health Estiven Mehta, DO Betamethasone Dipropionate 0.05 % External Ointment Apply a small amount topically to the affected area twice daily as needed Skin Claudia Keene, DO Carvedilol 6.25 MG Oral Tablet (Coreg) TAKE ONE TABLET BY MOUTH TWICE A DAY IN THE MORNING AND BEFORE BEDTIME Heart Failure; Blood Pressure RANDI Paris Cholecalciferol (VITAMIN D) 1000 units Tablet Take 1 Tablet by mouth every evening. General Health Self Empagliflozin 10 MG Oral Tablet (Jardiance) Take 1 Tablet by mouth in the morning. Heart Failure; Diabetes; Kidney Function Estiven Mehta DO Entresto 97-103 MG Oral Tablet (sacubitril-valsartan 97-103 mg per tab) Take 1 Tablet by mouth in the morning and 1 Tablet before bedtime. Heart Failure Samantha Caldera PA-C Escitalopram Oxalate 5 MG Oral Tablet (Lexapro) TAKE ONE TABLET BY MOUTH EVERY MORNING Mood Claudia Krause DO Ezetimibe 10 MG Oral Tablet (Zetia) Take 1 Tablet by mouth in the morning. Cholesterol RANDI [place] Montelukast Sodium 10 MG Oral Tablet (Singulair) Take 1 Tablet by mouth in the morning. Allergies Claudia Keene DO SARNA 0.5-0.5 % EX LOTN Apply a small amount topically to affected areas as directed for itchy skininstead of scratching Dry skin Matt Patricio MD Spironolactone 25 MG Oral Tablet (Aldactone) Take 0.5 Tablets by mouth in the morning. Heart Failure RANDI Angel valACYclovir HCl 1 GM Oral Tablet (Valtrex) 2 pills every 12 hours for 1 day for cold sores as needed Cold Sores Claudia Keene DO * MTM To-Do-List - Fredrick Molina [facility] - 08/25/2024 11:16 AM EDT Images from the original note were not included. What we talked about: What I should do: The importance of taking your medication as prescribed Your medicine works best when taken as prescribed. It can be hard to remember to take daily medications. Consider making it a part of your daily routine. Pair taking your medication with something you do every day, like brushing your teeth or eating a meal. Consider setting daily alarms to help remind yourself when it is time to take your medicine. Using a pill box can also help you organize your medicines. Pill boxes allow you to fill each day slot with your daily medicine and help you track when your next dose is due. What we talked about: What I should do: Vitamin D Per our discussion please work towards taking your vitamin D daily. This will help to keep your levels up which in turn helps your body absorb and utilize the calcium from your diet to keepyour bones healthy. What we talked about: What I should do: Blood Pressure Monitoring It is important to monitor your blood pressure regularly. Make sure to record your readings in a log and take them with you to your appointments. Providing these readings toyour healthcare providers can help them better control your blood pressure. What we talked about: What I should do: Blood Sugar Monitoring It is also important to monitor your blood sugar regularly. Make sure to record your readings in a log and take them with you to your appointments. Providing these readings to your healthcare providers can help them better control your blood sugar. documented in this encounter Plan of Treatment Upcoming Encounters Date Type Department Care Team (Late st Contact Info) Description 09/08/2024 11:00 AM EDT Office Visit Cardiology, [facility] [address] [place] [address] Estiven Mehta, [address] [place] [address] 11/21/2024 11:20 AM EDT Office Visit Family Medicine [address] [place] [phone] Alicia Laura MD [address] [place] [address] [place] [phone] 02/01/2025 2:00 PM EDT Office Visit Nephrology, [facility] [address] [facility] [place] [place] [address] ZeGinger to PA-C [address] [facility] [place] [address] 04/04/2025 10:00 AM EDT Office Visit Cardiology, [facility] [address] [place] [address] Estiven Mehta, [address] [place] [address] 04/13/2025 9:00 AM EST Nurse Only Ancillary [address] [place] [address] Osvaldo, Nurse [address] [place] [address] Scheduled Procedures Name Priority Associated Diagnoses Date/Ti me COLONOSCOPY FLEXIBLE PROXIMAL DIAGNOSTIC Recall History of colon polyps Health Maintenance Due Date Last Done Comments COVID-19 Vaccine ( season) 2024 07/03/2022, 10/15/2021, 04/16/2021, Additional history exists CKD HGB USE SMARTSET 67147 08/30/202408/30, 08/04/2022, 09/02/2021, Additional history exists Diabetic Eye Exam 10/04/2024 10/05/2023, (Done elsewhere), 10/31/2022, Additional history exists Albumin/Creatinine Ratio 11/12/2024 024, 10/30/2022, 11/18/2021, Additional history exists B-12 11/12/2024 11/13/2023, 10/07, 11/18/2021, Additional history exists GFR 11/15/2024 05/17/2024, 06/0 12/2023, 08/31/2023, Additional history exists HbA1c 11/15/2024 05/17/2024, 06/0 12/2023, 05/25/2023, Additional history exists Adult Wellness Visit 04/11/2025 04/11/2024, 04/10/2023, 04/08/2022, Additional history exists Depression Monitoring 04/11/2025 04/11/2024 Diabetic Foot Exam 04/11/2025 04/11/2024, 1 06/10/2022, 04/08/2022, Additional history exists CKD PHOS USE SMARTSET 12571 05/17/202505/08, 05/25/2023, 09/02/2021, Additional history exists DXA Scan 05/21/2029 05/21/2022, [...] this encounter Medical Devices Implanted Type Area Peer Financial Counselor Device Identifier Shelf Expiration Date Model / Serial / Lot Lens Intraoc 25.0 - [id number] - [id number] Implanted:Qty: 1 on 08/18/2017 by Jeff Chase MD at OR [facility] Left: Eye [employer] 06/07/2021 [id number] / [id number] / Lens Intraoc 25.5 - [id number] - [id number] Implanted:Qty: 1 on 09/08/2017 by Jeff Chase MD at OR [facility] Right: Eye [employer] LOM[employer] 03/07/2022 [id number] / [id number] / [id number] documented as of this encounter Visit Diagnoses Diagnosis Medication management- Primary Encounter for long-term (current) use of other medications documented in this encounter Advance Directives * [...] and were consensually agreed upon. Care Teams Street Car Mechanic Relationship Specialty Start Date End Date Alicia Laura MD [address] [place] [address] [place] [phone] PCP - General Family Medicine 05/23/24 documented as of this encounter
--- OUTSIDE RECORDS SUMMARY | 2024-10-20 20:56 | External Medical Summary | Summary of Care ---
Author Name Unknown Organization [facility] Address [address] [place] [facility] [place] [place] [address] Phone [phone] Care Team Providers Care Clinical Quality Rn Name Role Phone Alicia Laura MD Primary Care Pr ovider Encounter Details Date Type Department Care Team (Late st Contact Info) Description 08/23/2024 Orders Only Family Medicine [address] [phone] Alicia Laura MD [address] [place] [address] [place] [phone] Allergies Active Allergy Reactions Criticality Noted Date Comments Diphenhydramine Neuro complications (Please comment) 08/05/2019 Nabumetone 01/12/2006 Purpuric rash and hives Other - Drugs 05/21/2007 Band aids Salicylates 05/14/2004 jittery, nervous with OTC sinus meds etc Simvastatin 05/14/2010 Statin intolerant Carbamazepine 08/21/2019 Itch documented as of this encounter (statuses as of 08/23/2024) Medications BLOOD PRESSURE MONITORING DEVIIndications :HTN, goal below 140/90 Dispense a sphygmanometer 1 Device 0 07/22/19 11 Active EUCERIN EX CREAIndications :Eczematous dermatitis,Dry skin,Pruritic disorder as directed especially after bathing 420 g 2 04/19/20 14 Active SARNA 0.5-0.5 % EX LOTNIndications :Dry skin,Pruritic disorder as directed to itching skin instead of scratching 1 Bottle 3 04/19/20 14 Active Biotin 85841 MCG TABS Take 1 Tablet by mouth daily. Active Cyanocobalamin (B-12) 1000 MCG Capsule Take [...] sores 24 Tablet 1 11/02/19 23 Active Additional Information Patient taking differently: 2 pills every 12 hours for 1 day for cold sores as needed, Reported on 07/19/2024 hydrOXYzine HCl 10 MG Oral Tablet (Atarax)Indicat ions:Other eczema Take 1 Tablet by mouth every 6 hours as needed for Itching. 40 Tablet 2 12/23/19 23 Active Furosemide 20 MG Oral Tablet (Lasix)Indicati ons:Chronic systolic heart failure (HCC) Take 1 Tablet by mouth daily as needed (swelling). 30 Tablet 5 04/01/20 23 Active Spironolactone 25 MG Oral Tablet (Aldactone)Lia cations:Chronic HFrEF (heart failure with reduced ejection fraction) (HCC) Take 0.5 Tablets by mouth in the morning. 45 Tablet 3 08/31/19 24 Active Ezetimibe 10 MG Oral Tablet (Zetia)Indicati ons:Chronic HFrEF (heart failure with reduced ejection fraction) (HCC),HTN, goal below 130/80,Dyslipid emia, goal LDL below 70 Take 1 Tablet by mouth in the morning. 90 Tablet 3 08/31/19 24 Active Entresto 97-103 MG Oral Tablet (sacubitril-kel sartan 97-103 mg per tab)Indications :Chronic systolic heart failure (HCC) Take 1 Tablet by mouth in the morning and 1 Tablet before bedtime. 180 Tablet 3 08/01/2024 6:49 PM EST 11/09/19 24 Active Carvedilol 6.25 MG Oral Tablet (Coreg)Indicati ons:Chronic systolic heart failure (HCC),Chronic HFrEF (heart failure with reduced ejection fraction) (HCC) TAKE ONE TABLET BY MOUTH TWICE A DAY IN THE MORNING AND BEFORE BEDTIME 180 Tablet 3 08/16/2024 7:33 AM EDT 11/23/19 24 025 Active Escitalopram Oxalate 5 MG Oral Tablet (Lexapro)Indica tions:Current moderate episode of major depressive disorder without prior episode (HCC) TAKE ONE TABLET BY MOUTH EVERY MORNING 90 Tablet 3 05/27/2024 6:21 AM EST 12/04/19 24 025 Active Montelukast Sodium 10 MG Oral Tablet (Singulair) Take 1 Tablet by mouth in the morning. 90 Tablet 1 03/08/20 Active Additional Information Patient not taking.Reported on 07/19/2024 OneTouch Ultra In Vitro Strip (Glucose Blood)Indicatio ns:Type 2 diabetes mellitus with diabetic peripheral angiopathy without gangrene, unspecified whether halfway insulin use ([facility]) TEST 1-2 TIMES A DAY 200 Strip 3 03/17/20 24 Active OneTouch Delica Plus [id number] TEST 1-2 TIMES DAILY 200 Each 1 07/11/2024 11:32 AM EST 03/30/20 24 025 Active amLODIPine Besylate 5 MG Oral Tablet (Norvasc)Indica tions:Hypertens ion goal BP (blood pressure) < 140/90 Take one-half tablet by mouth in the morning. 50 Tablet 1 08/02/2024 1:11 PM EST 04/23/20 24 Active Empagliflozin 10 MG Oral Tablet (Jardiance)Lia cations:Type 2 diabetes mellitus with hemoglobin A1c goal of less than 8.0% ([facility]),Left heart failure with reduced left ventricular function (HCC) Take 1 Tablet by mouth in the morning. 100 Tablet 3 06/30/2024 7:45 AM EST 06/24/19 25 Active documented as of this encounter (statuses as of 08/23/2024) Active Problems Problem Noted Date Diagnosed Date [...] as of this encounter (statuses as of 08/23/2024) Resolved Problems Problem Noted Date Diagnosed Date [...] as of this encounter (statuses as of 08/23/2024) Immunizations Name Administration Dates Next Due COVID-19 mRNA, LNP-s, No Pre serve, 2-Dose Series ([employer]) 04/16/2021,08/22/2020,08/01/2020 COVID-19, LNP-s, No Preserve , John-sucrose, Ages 12+ (Pfizer) 10/15/2021 Covid-19, Mrna, Lnp-s, Pf, B ivalent, 30 Mcg, IM, 12 yrs and above ([employer]ing) 07/03/2022 Hepatitis B, 20+ yrs 04/13/2017,10/27/2016,09/23 Pneumococcal [...] 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 Not on file Not on file Not on file documented as of this encounter Miscellaneous Notes * Result Encounter Note - Alicia Laura MD - 08/23/2024 11:47 AM EDT Birads 2, benign documented in this encounter Plan of Treatment Upcoming Encounters Date Type Department Care Team (Late st Contact Info) Description 09/08/2024 11:00 AM EDT Office Visit Cardiology, [facility] [address] [place] [address] [address] [address], [address] [place] [address] 11/21/2024 11:20 AM EDT Office Visit Family Medicine [address] [phone] Alicia Laura MD [address] [place] [address] [place] [phone] 02/01/2025 2:00 PM EDT Office Visit Nephrology, [facility] [address] [facility] [place] [address] ZemaitisGinger PA-C [address] [facility] [place] [address] 04/04/2025 10:00 AM EDT Office Visit Cardiology, [facility] [address] [place] [address] Estiven Mehta, [address] [place] [address] 04/13/2025 9:00 AM EST Nurse Only Ancillary [address] [place] [address] Os[place]do, Nurse [address] [place] [address] Scheduled Procedures Name Priority Associated Diagnoses Date/Ti me COLONOSCOPY FLEXIBLE PROXIMAL DIAGNOSTIC Recall History of colon polyps Health Maintenance Due Date Last Done Comments COVID-19 Vaccine ( season) 2024 07/03/2022, 10/15/2021, 04/16/2021, Additional history exists CKD HGB USE SMARTSET 78254 08/30/202408/30, 08/04/2022, 09/02/2021, Additional history exists Diabetic Eye Exam 10/04/2024 10/05/2023, (Done elsewhere), 10/31/2022, Additional history exists Albumin/Creatinine Ratio 11/12/2024 024, 10/30/2022, 11/18/2021, Additional history exists B-12 11/12/2024 11/13/2023, 0510/2022, 11/18/2021, Additional history exists GFR 11/15/2024 05/17/2024, 06/0 12/2023, 08/31/2023, Additional history exists HbA1c 11/15/2024 05/17/2024, 06/0 12/2023, 05/25/2023, Additional history exists Adult Wellness Visit 04/11/2025 04/11/2024, 04/10/2023, 04/08/2022, Additional history exists Depression Monitoring 04/11/2025 04/11/2024 Diabetic Foot Exam 04/11/2025 04/11/2024, 1 06/10/2022, 04/08/2022, Additional history exists CKD PHOS USE SMARTSET 98052 05/17/202505/08, 05/25/2023, 09/02/2021, Additional history exists DXA [...] this encounter Medical Devices Implanted Type Area Fisheries Specialist Device Identifier Shelf Expiration Date Model / Serial / Lot Lens Intraoc 25.0 - [id number] - [id number] Implanted:Qty: 1 on 08/18/2017 by Jeff Chase MD at OR [facility] Left: Eye [employer] 06/07/2021 [id number] / [id number] / Lens Intraoc 25.5 - [id number] - [id number] Implanted:Qty: 1 on 09/08/2017 by Jeff Chase MD at OR [facility] Right: Eye [employer] 03/07/2022 [id number] / [id number] / [id number] documented as of this encounter Procedures Procedure Name Priority Date/Time Associated Diagnosis Comments MAMMOGRAM SCREENING BILATERAL Routine 08/19/2024 documented in this encounter Results * MAMMOGRAM SCREENING BILATERAL (08/19/2024) Anatomical Region Laterality Modality Breast Bilateral Other 08/19/2024 Alicia Monterroso MD RAD MAMMOGRAPHY Final Result documented in this encounter Advance Directives * [...] and were consensually agreed upon. Care Teams Clinical Quality Rn Relationship Specialty Start Date End Date Alicia Laura MD [address] [place] [address] [place] [phone] PCP - General Family Medicine 05/23/24 documented as of this encounter
--- OUTSIDE RECORDS SUMMARY | 2024-10-20 20:56 | External Medical Summary ---
Author Name Unknown Address Unknown Organization K01:[facility] [place] - [address] [place] [address] Laboratory Report Ordering Provider Test Date Status JULISA LAWSON 09/08/2024 12:10:05 Final Exclude Heart Failure: <300 pg/mL
Diagnose Heart Failure:
Age <50 yr: >450 pg/mL
50-75 yr: >900 pg/mL
>75 yr: >1800 pg/mL
GFR is 30-59 mL/min: >1200 pg/mL or Age- adjusted values
GFR <30 mL/min: do not use, not reliable

Prognostic threshold: 1000 pg/mL Observation Date Value Abnormality Reference (Units ) Status BNP, Pro-hormone 09/08/2024 12:10:05 265 <30 0 (pg/mL) Final Performing Location [facility] - [address] [place] [address]
[2024-10-20] MEDS ORDERED: CARBOHYDRATES FOR HYPOGLYCEMIA PO PRN (21:18)
[2024-10-20] MEDS ORDERED: GLUCOSE 10 TAB/TUBE PO PRN (21:18)
[2024-10-20] MEDS ORDERED: GLUCAGON FOR INJ 1 MG VIAL SQ PRN (21:18)
[2024-10-20] MEDS ORDERED: DEXTROSE 50% 50 ML SYRINGE IV PRN (21:18)
[2024-10-20] MEDS ORDERED: GLUCOSE 40% GEL 15 GM TUBE PO PRN (21:18)
[2024-10-20] MEDS: INSULIN ASPART PER UNIT CHARGE SC SCH (21:27)
[2024-10-20 23:31] VITALS: O2SAT 94
--- NOTE | 2024-10-21 00:17 | XRay Report ---
Exam(s): XR CXR 1 VIEW EXAM: XR Chest, 1 View CLINICAL HISTORY: Reason for exam: F/u pneumothorax on water seal. TECHNIQUE: Frontal view of the chest. COMPARISON: Prior chest x-ray from October 20, 2024 at 5:48 PM.. FINDINGS: There is an AICD in left chest wall distal leads in the right atrium right ventricle. There is a left chest tube in place. Lungs: Unremarkable. No consolidation. Pleural space: There is a small left pleural effusion. There is a tiny left apical pneumothorax. Heart: Unremarkable. No cardiomegaly. Mediastinum: Unremarkable. Normal mediastinal contour. Bones/joints: Unremarkable. No acute fracture. IMPRESSION: Stable Tiny left apical pneumothorax with chest tube in place. Electronically signed by: Lali Lamb MD 10/21/24 00:16 AM
[2024-10-21 03:55] VITALS: RESP 16
[2024-10-21 05:13] LABS: Basophils # (auto) 0.02 K/uL (0.00-0.20); Basophils % (auto) 0.3 %; Eosinophils # (auto) 0.06 K/uL (0.00-0.50); Eosinophils % (auto) 0.9 %; Hematocrit (blood only) 37.2 % (37.0-47.0); Hemoglobin 12.4 g/dl (12.0-16.0); Immature Granulocytes # (auto) 0.01 K/uL (0.01-0.20); Immature Granulocytes % (auto) 0.2 %; Lymphocytes # (auto) 1.38 K/uL (1.20-3.40); Lymphocytes % (auto) 21.8 %; Mean Corpuscular Hemoglobin 30.2 pg (25.0-34.0); Mean Corpuscular Hgb Conc 33.3 g/dL (32.0-36.0); Mean Corpuscular Volume 90.5 fL (80.0-100.0); Mean Platelet Volume 10.7 fL (9.4-12.4); Monocytes # (auto) 0.63 K/uL (0.11-0.59); Neutrophils # (auto) 4.22 K/uL (1.40-6.50); Neutrophils % (auto) 66.8 %; Platelet Count 123 K/uL (130-400); RDW Coefficient of Variation 13.4 % (11.5-14.5); RDW Standard Deviation 44.1 fL (36.4-46.3); Red Blood Count 4.11 M/uL (4.20-5.40); White Blood Count 6.32 K/ul (4.8-10.8)
[2024-10-21 06:02] LABS: BUN Creatinine Ratio 28.2 (10-20); Calcium 8.5 mg/dl (8.6-10.3); Creatinine Clr Calc Pharmacy 36.9 ml/min; Phosphorus 2.3 mg/dl (2.5-4.9); Potassium 4.1 mmol/L (3.5-5.1)
[2024-10-21] MEDS: MAGNESIUM OXIDE 400 MG TAB PO SCH (06:25)
[2024-10-21] MEDS: POT PHOSPHATE MONOBASIC W/ SOD TAB PO SCH (06:25)
[2024-10-21] MEDS: ICU ELECTROLYTE REPLACEMENT PROTOCOL SCH (06:25)
[2024-10-21] MEDS ORDERED: MAGNESIUM SULFATE / D5W 1 GM/100 ML BAG IV SCH (07:15)
--- NOTE | 2024-10-21 07:45 | Critical Care Progress Note ---
Date of Service October 21, 2024 Assessment & Plan (1) Iatrogenic pneumothorax: Plan: Interval stability of very small apical pneumothorax with greater than 12 hours of waterseal. Likely will discontinue chest tube today and if pneumothorax remains stable would be able to follow-up in 1 week with cardiology and obtain repeat imaging to ensure complete resolution 8:30, discussed with cardiology will see patient Thursday next week with chest x- ray prior. I removed the chest tube and placed an order for chest x-ray at noon. If apical pneumo remains stable would be stable for discharge Admission and Anticipated Discharge Date Admission Date: October 19, 2024 Subjective Patient feeling okay. We discussed warning signs of shortness of breath, sudden onset chest pain, inability to take deep breath patient would need to contact 911 turn to emergency department. Patient not planning on air travel or scuba diving or any other high risk activities in the next 3 months. Physical Exam Physical Exam: General: Alert. nontoxic. Skin: Warm, dry, Head: Atraumatic Ears, nose, mouth and throat: airway patent Cardiovascular: Normal peripheral perfusion Respiratory: no respiratory distress Gastrointestinal: Non distended Musculoskeletal: No deformity Results & Data Results & Data Vital Signs (Past 12 Hours) Vital Signs Temp Pulse Resp BP Pulse Ox Pulse Ox O2 Del Method 10/21/24 03:45 65 16 94 10/21/24 03:01 125/54 L 10/21/24 03:01 125/54 L 10/21/24 03:00 62 17 94 10/21/24 02:33 63 15 95 10/21/24 02:06 60 27 H 93 10/21/24 02:00 92/60 L 10/21/24 02:00 92/60 L 10/21/24 01:33 62 18 93 10/21/24 01:06 64 16 95 10/21/24 01:00 120/56 L 10/21/24 01:00 120/56 L 10/21/24 00:42 78 17 93 10/21/24 00:39 63 17 95 10/21/24 00:00 104/48 L 10/21/24 00:00 64 18 93 10/21/24 00:00 63 10/20/24 23:30 64 18 94 10/20/24 23:18 64 27 H 94 10/20/24 22:33 66 20 94 10/20/24 22:00 67 19 93 10/20/24 22:00 118/53 L 10/20/24 21:33 73 17 95 10/20/24 21:12 71 18 95 10/20/24 20:42 69 32 H 96 10/20/24 20:01 142/72 H 10/20/24 20:00 Room Air 10/20/24 20:00 36.7 C 72 22 96 10/20/24 20:00 95 O2 Del Method 10/21/24 03:45 10/21/24 03:01 10/21/24 03:01 10/21/24 03:00 10/21/24 02:33 10/21/24 02:06 10/21/24 02:00 10/21/24 02:00 10/21/24 01:33 10/21/24 01:06 10/21/24 01:00 10/21/24 01:00 10/21/24 00:42 10/21/24 00:39 10/21/24 00:00 10/21/24 00:00 10/21/24 00:00 10/20/24 23:30 10/20/24 23:18 10/20/24 22:33 10/20/24 22:00 10/20/24 22:00 10/20/24 21:33 10/20/24 21:12 10/20/24 20:42 10/20/24 20:01 10/20/24 20:00 10/20/24 20:00 10/20/24 20:00 Room Air Critical Care Results & Data Vital Signs (Past 12 Hours) Vital Signs Temp Pulse Resp BP Pulse Ox Pulse Ox O2 Del Method 10/21/24 03:45 65 16 94 10/21/24 03:01 125/54 L 10/21/24 03:01 125/54 L 10/21/24 03:00 62 17 94 10/21/24 02:33 63 15 95 10/21/24 02:06 60 27 H 93 10/21/24 02:00 92/60 L 10/21/24 02:00 92/60 L 10/21/24 01:33 62 18 93 10/21/24 01:06 64 16 95 10/21/24 01:00 120/56 L 10/21/24 01:00 120/56 L 10/21/24 00:42 78 17 93 10/21/24 00:39 63 17 95 10/21/24 00:00 104/48 L 10/21/24 00:00 64 18 93 10/21/24 00:00 63 10/20/24 23:30 64 18 94 10/20/24 23:18 64 27 H 94 10/20/24 22:33 66 20 94 10/20/24 22:00 67 19 93 10/20/24 22:00 118/53 L 10/20/24 21:33 73 17 95 10/20/24 21:12 71 18 95 10/20/24 20:42 69 32 H 96 10/20/24 20:01 142/72 H 10/20/24 20:00 Room Air 10/20/24 20:00 36.7 C 72 22 96 10/20/24 20:00 95 O2 Del Method 10/21/24 03:45 10/21/24 03:01 10/21/24 03:01 10/21/24 03:00 10/21/24 02:33 10/21/24 02:06 10/21/24 02:00 10/21/24 02:00 10/21/24 01:33 10/21/24 01:06 10/21/24 01:00 10/21/24 01:00 10/21/24 00:42 10/21/24 00:39 10/21/24 00:00 10/21/24 00:00 10/21/24 00:00 10/20/24 23:30 10/20/24 23:18 10/20/24 22:33 10/20/24 22:00 10/20/24 22:00 10/20/24 21:33 10/20/24 21:12 10/20/24 20:42 10/20/24 20:01 10/20/24 20:00 10/20/24 20:00 10/20/24 20:00 Room Air Lab & Micro Results (Past 24 Hours) RBC 4.11 M/uL (4.20-5.40) L 10/21/24 WBC 6.32 K/ul (4.8-10.8) 10/21/24 Hgb 12.4 g/dl (12.0-16.0) 10/21/24 Hct 37.2 % (37.0-47.0) 10/21/24 MCV 90.5 fL (80.0-100.0) 10/21/24 MCH 30.2 pg (25.0-34.0) 10/21/24 MCHC 33.3 g/dL (32.0-36.0) 10/21/24 RDW Standard Deviation 44.1 fL (36.4-46.3) 10/21/24 RDW Coefficient of Variation 13.4 % (11.5-14.5) 10/21/24 Plt Count 123 K/uL (130-400) L 10/21/24 MPV 10.7 fL (9.4-12.4) 10/21/24 Neutrophils (%) (Auto) 66.8 % 10/21/24 Lymphocytes (%) (Auto) 21.8 % 10/21/24 Monocytes # (Auto) 0.63 K/uL (0.11-0.59) H 10/21/24 Eosinophils # (Auto) 0.06 K/uL (0.00-0.50) 10/21/24 Immature Granulocyte % (Auto) 0.2 % 10/21/24 Neutrophils # (Auto) 4.22 K/uL (1.40-6.50) 10/21/24 Lymphocytes # (Auto) 1.38 K/uL (1.20-3.40) 10/21/24 Monocytes # (Auto) 0.63 K/uL (0.11-0.59) H 10/21/24 Eosinophils # (Auto) 0.06 K/uL (0.00-0.50) 10/21/24 Basophils # (Auto) 0.02 K/uL (0.00-0.20) 10/21/24 Immature Granulocyte # (Auto) 0.01 K/uL (0.01-0.20) 5 Na 137 mmol/L (136-145) 10/21/24 K 4.1 mmol/L (3.5-5.1) 10/21/24 Cl 106 mmol/L (98-107) 10/21/24 CO2 26 mmol/L (21-32) 10/21/24 Anion Gap 5 (3-11) 10/21/24 BUN 29 mg/dl (6-23) H 10/21/24 Creatinine 1.03 mg/dl (0.6-1.2) 10/21/24 BUN/Creatinine Ratio 28.2 (10-20) H 10/21/24 Glu 131 mg/dl (70-99(Fasting)) H 10/21/24 Ca 8.5 mg/dl (8.6-10.3) L 10/21/24 Phosphorus Level 2.3 mg/dl (2.5-4.9) L 10/21/24 Mg 2.0 mg/dl (1.7-2.4) 10/21/24 04:40 Calcium Level 8.5 mg/dl (8.6-10.3) L 10/21/24 04:40 Diagnostic Findings (Past 24 Hours) Chest X-Ray 10/20/24 06:00 EXAM: XR chest 1V portable CLINICAL HISTORY: CT placed to water seal at 0400- evaluate pneumothorax. TECHNIQUE: An X-ray image of the chest is obtained in AP portable projection. COMPARISON: 10/19/2024 18:37:00 SEWING TECHNIQUES DEMONSTRATOR. FINDINGS: Pulmonary Parenchyma: Left-sided chest tube with tip seen peripherally at mid lung zone (Partially obscured by ICD device) (new finding). Interval improvement of left-sided pneumothorax, still seen apical pneumothorax, and lung re-expansion. Prominent hilar vascular shadows. No evidence of consolidation, collapse, or focal opacities. No pulmonary nodules are identified. Obscured left costophrenic angle by minimal effusion / projectional. Heart and Mediastinum: Heart size and shape are normal. No mediastinal widening or masses. No hilar or mediastinal lymphadenopathy. A left-sided cardiac pacemaker is seen in situ. Bony Thorax: Bony thorax appears intact without fractures or deformities. Soft Tissues: Soft tissues overlying the chest wall are unremarkable. IMPRESSION: 1. Interval improvement of left-sided pneumothorax, still seen mild apical pneumothorax, and lung re-expansion. 2. Left-sided chest tube with tip seen peripherally at mid lung zone (Partially obscured by ICD device) (new finding). 3. Unchanged obscured left costophrenic angle possibly by minimal effusion / projectional. 4. No new consolidated or collapsed patches. Electronically signed by Dougie Carpenter 10-20-2024 08:17 AM Chest X-Ray 10/20/24 18:00 EXAM: XR chest 1V portable CLINICAL HISTORY: Pneumothorax. TECHNIQUE: An X-ray image of the chest is obtained in AP projection. COMPARISON: Same dated CR 10/20/2024 05:37:42 SEWING TECHNIQUES DEMONSTRATOR FINDINGS: Pulmonary Parenchyma: Left-sided chest tube with tip seen peripherally at mid lung zone (Partially obscured by ICD device) Still seen apical lucency suggestive of minimal residual pneumothorax Prominent hilar vascular shadows. No evidence of consolidation, collapse, still noted the left-sided mild pleural effusion Heart and Mediastinum: Heart size and shape are normal. No mediastinal widening or masses. No hilar or mediastinal lymphadenopathy. A left-sided cardiac pacemaker is seen in situ. Bony Thorax: Bony thorax appears intact without fractures or deformities. Soft Tissues: Soft tissues overlying the chest wall are unremarkable. IMPRESSION: 1. Still noted Left-sided chest tube with tip seen peripherally at mid lung zone (Partially obscured by ICD device) 2. Still seen apical lucency suggestive of minimal residual pneumothorax. 3. Still noted the left-sided mild pleural effusion. 4. No new consolidated or collapsed patches. 5. Overall improvement of the previous findings. Correlate clinically. Electronically signed by Dougie Carpenter 10-20-2024 7:45 PM Chest X-Ray 10/20/24 21:30 Exam(s): XR CXR 1 VIEW EXAM: XR Chest, 1 View CLINICAL HISTORY: Reason for exam: F/u pneumothorax on water seal. TECHNIQUE: Frontal view of the chest. COMPARISON: Prior chest x-ray from October 20, 2024 at 5:48 PM.. FINDINGS: There is an AICD in left chest wall distal leads in the right atrium right ventricle. There is a left chest tube in place. Lungs: Unremarkable. No consolidation. Pleural space: There is a small left pleural effusion. There is a tiny left apical pneumothorax. Heart: Unremarkable. No cardiomegaly. Mediastinum: Unremarkable. Normal mediastinal contour. Bones/joints: Unremarkable. No acute fracture. IMPRESSION: Stable Tiny left apical pneumothorax with chest tube in place. Electronically signed by: Lali Lamb MD 10/21/24 00:16 AM Chest X-Ray 10/21/24 07:00 EXAM: XR chest 1V portable CLINICAL HISTORY: Follow up chest tube, pneumothorax TECHNIQUE: Radiograph of chest was acquired. COMPARISON: 10/20/2024 16:48:54 SEWING TECHNIQUES DEMONSTRATOR FINDINGS: Left side chest tube seen. Minimal left pleural effusion. Small pneumothorax seen in left apex. Cardiac pacemaker seen. The lungs are clear and well-expanded. The cardiomediastinal silhouette is within normal limits. No acute osseous abnormality. IMPRESSION: 1. Left side chest tube seen. 2. Minimal left pleural effusion. 3. Small pneumothorax seen in left apex. 4. No intervak changes. Electronically signed by Francisco Padilla 10-21-2024 07:42 AM I & O Totals 24 Hours 10/20/24 10/21/24 10/22/24 06:59 06:59 06:59 Intake Total 242.5 / 242.5 650 / 650 Output Total 550 / 550 500 / 500 Balance -307.5 / -307.5 150 / 150 Cumulative 10/10/24 11:02 thru 10/21/24 01:00 Intake Total 892.5 Output Total 1050 Balance -157.5 RT Ventilator Mngmt (Last Documented) Ventilator Ordered Settings Respiratory Rate 16 10/21/24 03:45 Fraction of Inspired Oxygen 100 10/20/24 06:00 Ventilator - PT Measurements Respiratory Rate 16 Coding Level of Care Code 21216 SUB INP/OBS CARE 2/35MIN Diagnoses Iatrogenic pneumothorax J95.811
--- NOTE | 2024-10-21 12:16 | XRay Report ---
XR chest 1V portable CLINICAL HISTORY: d/c chest tube COMPARISON STUDY: 10/21/2024 FINDINGS: There is interval removal of the left chest tube. There is a small left apical pneumothorax with 1 cm pleural separation at the left apex, stable. Stable minimal stranding at the left base. No other solid lesion or pleural effusion. Stable left pacemaker/ICD. Stable mild cardiomegaly without pulmonary vascular congestion. IMPRESSION: Stable small left apical pneumothorax. ACT 112: Negative or not required by law. Electronically signed by: Shaun Qiu M.D. 10/21/2024 12:15 PM
--- NOTE | 2024-10-21 14:42 | Discharge Summary ---
Discharge Summary Date of Service October 21, 2024 Principal Dx & Hospital Course #1 = Principal Diagnosis (1) Iatrogenic pneumothorax: Status post AICD placement (2) Chronic HFrEF (heart failure with reduced ejection fraction): (3) LBBB (left bundle branch block): (4) Status post implantation of automatic cardioverter/defibrillator (AICD): (5) CKD (chronic kidney disease) stage 3, GFR 30-59 ml/min: (6) DM type 2 (diabetes mellitus, type 2): (7) HTN (hypertension): Plan Patient 84-year-old female who underwent AICD placement for significantly reduced ejection fraction in the setting of left bundle branch block. Unfortunately patient had a small iatrogenic pneumothorax during the process of placing her AICD. Patient was transferred to the hospital setting for management. She was admitted to the ICU. Critical care/pulmonary consultation was obtained. A pigtail chest tube catheter was placed by weather observer and placed to suction. Patient did well. She was given some oxygen support. Over the course of her hospitalization the pneumothorax improved and was monitored via chest x-ray. Chest tube was placed to waterseal. There was still a very small left apical pneumothorax that persisted. It remained stable under waterseal. Chest tube was removed and follow-up chest x-ray revealed again that there is still a persistent small pneumothorax but not to but did not increase in size and remained stable. Patient was completely asymptomatic. No chest pain or shortness of breath. Other vital signs are stable. Patient was continued to be observed throughout the day. Again she remained stable. Plans been made for her to follow-up outpatient with cardiology with her recent AICD pacemaker insertion. Given instructions to return to the ED if you have acute sudden onset of shortness of breath or chest pain. She also follow-up with her outpatient PCP and other providers as scheduled. Notes For Next Care Provider Follow-up with Dr. Montejo as scheduled through their office Medication Changes From Visit Amlodipine discontinued due to lower blood pressure Losartan was still on patient's med list, however patient states that she has not been taking it ever since she was started on Entresto. She was given specific instructions not to take losartan and only take her Entresto Patient states that she only takes the Valtrex as needed when she gets some oral cold sores. This was updated on her med list. Admission HPI Per Admitting Provider 84 yo female with pmhx of HFrEF (EF20% 2022--->40% 2023--->20% 2024) c/b LBBB, CAD (nonobstructive, LAD 30%, 2022), HTn, HLD, CKD Stage III, DM Type 2, and depression who presented for biventricular pacemaker placement for LBBB, course complicated by pneumothorax during course of placement. Discussed case with Dr. Montejo, patient will be admitted to ICU for monitoring and potential chest tube placement for pneumothorax. Patient seen and examined at bedside. Daughter present as well. Patient feeling well today post chest tube placement on left side. States she is not having any pain and generally feels she is improving. Denies any chest pain, bleeding, nausea or vomiting at this time. Full code at this time. Admission Exam Per Admitting Provider See H&P Discharge Exam Constitutional: Alert, no acute distress HEENT: Mucous membranes moist. Lungs: Clear, good airflow CV: S1-S2, regular, pacemaker dressing clean and dry, no significant swelling or redness surrounding dressing Abdomen: Soft, nontender, nondistended Extremities: No significant edema Neuro: No focal deficits Psych: Cooperative, normal mood Updated Medication List Medication Instructions Recorded Confirmed Type amlodipine 5 mg tablet 5 mg PO DAILY 08/19/22 10/19/24 History aspirin 81 mg tablet 81 mg PO DAILY 08/19/22 10/19/24 History carvedilol 6.25 mg tablet 6.25 mg PO BID 08/19/22 10/19/24 History escitalopram oxalate 5 mg tablet 5 mg PO DAILY 08/19/22 10/19/24 History ezetimibe 10 mg tablet 10 mg PO DAILY 08/19/22 10/19/24 History furosemide 20 mg tablet 20 mg PO DAILY 08/19/22 10/19/24 History losartan 100 mg tablet 100 mg PO DAILY 08/19/22 10/19/24 History Cyanacobalamin 10/19/24 History sacubitril 97 mg-valsartan 103 mg 1 tab PO BID 10/19/24 10/19/24 History tablet (Entresto) spironolactone 25 mg tablet 12.5 mg 10/19/24 History (Aldactone) valacyclovir 1 gram tablet 1,000 mg PO BID 10/19/24 10/19/24 History (Valtrex) Hospital Stay Data Consultations 10/19/24 19:38 Consult Bridge Inspector Routine Procedures Performed Operation Date: 10/19/24 11:00 Actual Procedures p ICD Insertion Single or Dual - Iveth Montejo DO s Venogram, Unilateral - Iveth Montejo DO Diagnostic Imagining Performed 10/19/24 06:45 EP Lab Images for PACS ONCE Reviewed imaging, laboratory and diagnostic studies. Pertinent findings as below. WBCs 6.3 Hemoglobin 12.4 Platelets 123 Electrolytes stable Creatinine 1.03 Glucose was reviewed Final chest x-ray after chest tube had been removed showed stable small left apical pneumothorax, no evidence of pulmonary vascular congestion Pending Results Patient Have Any Pending Studies at Discharge: No Discharge Instructions Given to Patient (Per Discharging Provider) Do not raise the left elbow over the left shoulder for 1 month Do not lift more than 10 pounds with the left arm for 2 weeks Keep dressing on & dry until wound check-no shower Try to wear a sports bra or surgical bra to help with wound healing Device and wound check as scheduled at [facility] Card[facility] Return immediately to the ED if you have acute onset of shortness of breath, chest pain, lightheadedness, dizziness Total Time Total Time Spent Total Time Spent (In Minutes): 36
[2024-10-21 15:22] VITALS: BP 129/69; PULSE 67
== END 2024-10-21 16:06 | disposition home or self-care (01) | DRG 982 ==
LOC: EP 09:50 → SUATTDRO 17:46 → 1E 17:46
PROC: EPB.ICD (2024-10-19 11:00)